=== PATIENT | female | born 1945 | race Caucasian/White ===

== ENCOUNTER 2019-09-02 10:23 | Outpatient (CLI) | payer MEDICARE, SELFPAY ==
[2019-09-02 13:10] LABS: Hemoglobin A1C 7.2 % (<5.7)
== END 2019-09-02 10:24 | disposition home or self-care (01) ==
PROVIDERS: PCP Nurse Practitioner Family; Visit Provider Nurse Practitioner Family
DX: E11.9 Type 2 diabetes mellitus without complications (principal)
CPT/HCPCS: 36415; 83036

== ENCOUNTER 2019-11-18 14:33 | Outpatient (CLI) | payer MEDICARE, OTHER, SELFPAY ==
--- NOTE | 2019-11-18 14:40 | ECG_ITS ---
Measurements Intervals [place] Rate: 76 P: 53 OR: 165 QRS: 31 QRSD: 84 T: 14 QT: 385 QTc: 433 Interpretive Statements SINUS RHYTHM NORMAL ECG Electronically Signed On 11-18-2019 15:41:39 CDT by John Gunn D.O.
[2019-11-18 14:56] LABS: Basophils Absolute Auto 0.05 K/mm3 (0.00-0.10); Basophils Percent Auto 0.6 % (0.0-1.0); Eosinophils Absolute Auto 0.07 K/mm3 (0.02-0.50); Eosinophils Percent Auto 0.8 % (1.0-6.0); Hematocrit 37.4 % (35.0-42.0); Hemoglobin 12.4 g/dL (11.7-13.8); Immature Granulocyte Absolute 0.04 K/mm3 (0.00-0.00); Immature Granulocyte Percent A 0.5 % (0.0-0.0); Lymphocytes Absolute Auto 1.49 K/mm3 (1.10-4.50); Lymphocytes Percent Auto 17.7 % (18.0-42.0); Mean Corpuscular HGB Conc 33.2 g/dL (32.0-36.0); Mean Corpuscular Hemoglobin 32.7 pg (27.0-31.0); Mean Corpuscular Volume 98.7 fL (78.0-102.0); Mean Platelet Volume 9.8 fl (9.2-11.8); Monocytes Absolute Auto 0.71 K/mm3 (0.10-0.90); Monocytes Percent Auto 8.4 % (2.0-11.0); Neutrophils Absolute Auto 6.1 K/mm3 (1.7-7.2); Platelet Count Result 224 K/mm3 (150-420); Red Blood Count 3.79 M/mm3 (4.20-5.40); Red Cell Distribution Width 12.9 % (11.6-14.4); White Blood Count 8.4 K/mm3 (4.8-10.8)
[2019-11-18 15:18] LABS: Creatinine Urine 19.87 mg/dL (40-278)
[2019-11-18 15:20] LABS: Hemoglobin A1C 7.2 % (<5.7)
[2019-11-18 15:43] LABS: Alanine Aminotransferase 59 U/L (14-59); Albumin Level 3.6 g/dL (3.4-5.0); Alkaline Phosphatase 156 U/L (46-116); Anion Gap 7 mmol/L (8-16); Aspartate Amino Transferase 23 U/L (15-37); Bilirubin,Total 0.3 mg/dL (0.00-1.00); Blood Urea Nitrogen 41 mg/dL (7-18); Carbon Dioxide 31 mmol/L (21-32); Chloride 105 mmol/L (98-108); Cholesterol 155 mg/dL (0-200); Estimated Glomerular Filt Rate 29; Free T4 Free Thyroxine 1.07 ng/dL (0.76-1.46); Glucose 115 mg/dL (70-99); HDL Direct 35 mg/dL (40-60); LDL Cholesterol Calculated 88 mg/dL (<130); Magnesium 1.9 mg/dL (1.8-2.4); Osmolality Calculated 307 mOsm/kg (285-295); Potassium 3.9 mmol/L (3.5-5.1); Sodium 143 mmol/L (136-145); Thyroid Stimulating Hormone 0.64 uIU/mL (0.36-3.74); Total Protein 6.9 g/dL (6.4-8.2); Triglycerides 162 mg/dL (0-150); Vitamin B12 1759 pg/mL (193-986)
[2019-11-18 15:46] LABS: MALB Creatinine Ratio 6.5 mg/g (0-30); Microalbumin Urine Random < 1.3 mg/L
[2019-11-18 15:47] LABS: Troponin I < 0.02 ng/mL (0.00-0.056)
[2019-11-23 19:25] LABS: Vitamin D 25 Hydroxy 53 ng/mL (30-100)
== END 2019-11-18 14:34 | disposition home or self-care (01) ==
LOC: CHSLAB 14:40
PROVIDERS: PCP Nurse Practitioner Family; Visit Provider Nurse Practitioner Family
DX: E78.00 Pure hypercholesterolemia, unspecified (principal); I10 Essential (primary) hypertension; E03.9 Hypothyroidism, unspecified; R53.83 Other fatigue; R53.1 Weakness; Z00.00 Encounter for general adult medical examination without abnormal findings; Z79.899 Other long term (current) drug therapy; E11.9 Type 2 diabetes mellitus without complications
CPT/HCPCS: 36415; 80053; 80061; 82043; 82306; 82553; 82607; 83036; 83735; 84439; 84443; 84484; 85025; 93005

== ENCOUNTER 2019-12-03 09:31 | Outpatient (CLI) | payer MEDICARE, SELFPAY ==
[2019-12-03 11:27] LABS: Alanine Aminotransferase 54 U/L (14-59); Albumin Level 3.8 g/dL (3.4-5.0); Alkaline Phosphatase 220 U/L (46-116); Anion Gap 6 mmol/L (8-16); Aspartate Amino Transferase 20 U/L (15-37); Bilirubin,Total 0.4 mg/dL (0.00-1.00); Blood Urea Nitrogen 31 mg/dL (7-18); Calcium 9.5 mg/dL (8.5-10.1); Carbon Dioxide 30 mmol/L (21-32); Chloride 105 mmol/L (98-108); Estimated Glomerular Filt Rate 29; Glucose 131 mg/dL (70-99); Osmolality Calculated 300 mOsm/kg (285-295); Potassium 4.3 mmol/L (3.5-5.1); Sodium 141 mmol/L (136-145); Total Protein 6.7 g/dL (6.4-8.2)
== END 2019-12-03 09:32 | disposition home or self-care (01) ==
LOC: CHSLAB 09:33
PROVIDERS: PCP Nurse Practitioner Family; Visit Provider Nurse Practitioner Family
DX: N28.9 Disorder of kidney and ureter, unspecified (principal)
CPT/HCPCS: 36415; 80053

== ENCOUNTER 2019-12-21 12:19 | Outpatient (CLI) | payer MEDICARE, OTHER, SELFPAY ==
--- NOTE | ~2019-12-21 | MM_ITS ---
EXAMINATION: MM screening roque BI w kelsea HISTORY: Screening mammogram TECHNIQUE: Craniocaudal and mediolateral oblique 3-D tomosynthesis images were obtained and synthetic 2-D images were generated. CAD analysis was submitted and interpreted. COMPARISON: 12/16/2018, 12/12/2017, 11/28/2016 bilateral digital screening mammogram examinations BREAST PARENCHYMAL COMPOSITION: The breasts are heterogeneously dense, which may obscure small masses . FINDINGS: There is a new asymmetric approximately 10 mm opacity in the posterior lateral aspect of th e mid upper left breast on MLO view. An approximately 13 mm opacity is noted overlying the subareolar area on MLO view. Bilateral diagnostic mammography and ultrasound examination are recommended. IMPRESSION: 1. Bilateral masses are suggested 2. Bilateral diagnostic mammography and ultrasound are recommended. BI-RADS Category 0: Incomplete: Needs additional imaging evaluation. Reviewed, dictated and finalized at location A.
== END 2019-12-21 12:20 | disposition home or self-care (01) ==
PROVIDERS: PCP Nurse Practitioner Family; Visit Provider Nurse Practitioner Family
DX: Z12.31 Encounter for screening mammogram for malignant neoplasm of breast (principal)
CPT/HCPCS: 77063; 77067

== ENCOUNTER 2019-12-23 08:59 | Outpatient (CLI) | payer MEDICARE, OTHER, SELFPAY ==
--- NOTE | ~2019-12-23 | MMUS_ITS ---
EXAMINATION: MM diagnostic roque BI w kelsea, US breast BI complete HISTORY: Bilateral breast masses suggested on screening mammogram of 12/21/2019 TECHNIQUE: Additional 3-D tomosynthesis images of both breasts were performed and synthetic 2-D image s were generated. CAD analysis was submitted and interpreted. High resolution bilateral complete rob st ultrasound was performed. COMPARISON: 12/21/2019 bilateral digital screening mammogram FINDINGS: MAMMOGRAPHIC FINDINGS: No reproducible mass or architectural distortion is evident on these supplemental views. ULTRASOUND: No suspicious mass or shadowing is detected. No cyst is identified. IMPRESSION: 1. No mammographic evidence of malignancy 2. Routine mammographic screening is recommended. BI-RADS Category 1: Negative Reviewed, dictated and finalized at location A. IMPRESSION: 1. No mammographic evidence of malignancy 2. Routine mammographic screening is recommended. BI-RADS Category 1: Negative
== END 2019-12-23 09:00 | disposition home or self-care (01) ==
LOC: CHSIMG 09:02
PROVIDERS: PCP Nurse Practitioner Family; Visit Provider Nurse Practitioner Family
DX: R92.8 Other abnormal and inconclusive findings on diagnostic imaging of breast (principal)
CPT/HCPCS: 76641; 77062; 77066; G0279

== ENCOUNTER 2020-02-18 09:11 | Outpatient (CLI) | payer MEDICARE, SELFPAY ==
[2020-02-18 09:33] LABS: Add Urine Microscopic? NO; Appearance Urine Clear (Clear); Basophils Absolute Auto 0.06 K/mm3 (0.00-0.10); Basophils Percent Auto 0.9 % (0.0-1.0); Bilirubin Urine Negative (Negative); Blood Urine Negative (Negative); Color Urine Yellow (Yellow); Eosinophils Absolute Auto 0.08 K/mm3 (0.02-0.50); Eosinophils Percent Auto 1.3 % (1.0-6.0); Glucose Urine UA Negative (Negative); Hemoglobin 12.3 g/dL (11.7-13.8); Immature Granulocyte Absolute 0.05 K/mm3 (0.00-0.00); Immature Granulocyte Percent A 0.8 % (0.0-0.0); Ketones Urine Negative (Negative); Leukocyte Esterase Ur Negative (Negative); Lymphocytes Absolute Auto 1.92 K/mm3 (1.10-4.50); Mean Corpuscular HGB Conc 32.4 g/dL (32.0-36.0); Mean Corpuscular Hemoglobin 32.9 pg (27.0-31.0); Mean Corpuscular Volume 101.6 fL (78.0-102.0); Mean Platelet Volume 9.7 fl (9.2-11.8); Monocytes Absolute Auto 0.66 K/mm3 (0.10-0.90); Monocytes Percent Auto 10.3 % (2.0-11.0); Neutrophils Absolute Auto 3.6 K/mm3 (1.7-7.2); Neutrophils Percent Auto 56.7 % (50.0-70.0); Nitrate Urine Negative (Negative); Platelet Count Result 257 K/mm3 (150-420); Protein Urine Negative (Negative); Red Blood Count 3.74 M/mm3 (4.20-5.40); Red Cell Distribution Width 12.8 % (11.6-14.4); Urobilinogen Urine 0.2 mg/dL (0.2-1.0); White Blood Count 6.4 K/mm3 (4.8-10.8)
[2020-02-18 09:49] LABS: Creatinine Urine 139.64 mg/dL (40-278); Total Protein Urine Random 7.3 mg/dL (0.0-11.9)
[2020-02-18 10:02] LABS: Hemoglobin A1C 6.3 % (<5.7)
[2020-02-18 10:40] LABS: Alanine Aminotransferase 46 U/L (14-59); Albumin Level 3.9 g/dL (3.4-5.0); Alkaline Phosphatase 146 U/L (46-116); Anion Gap 7 mmol/L (8-16); Aspartate Amino Transferase 20 U/L (15-37); Bilirubin,Total 0.4 mg/dL (0.00-1.00); Blood Urea Nitrogen 39 mg/dL (7-18); Calcium 9.3 mg/dL (8.5-10.1); Carbon Dioxide 30 mmol/L (21-32); Chloride 105 mmol/L (98-108); Estimated Glomerular Filt Rate 28; Glucose 106 mg/dL (70-99); Osmolality Calculated 303 mOsm/kg (285-295); Phosphorus 4.3 mg/dL (2.6-4.7); Potassium 5.3 mmol/L (3.5-5.1); Sodium 142 mmol/L (136-145); Total Protein 6.5 g/dL (6.4-8.2)
[2020-02-22 19:17] LABS: Hepatitis A Antibody IgM Nonreactive; Hepatitis B Core Antibody Nonreactive (Nonreactive); Hepatitis B Surface Antigen Nonreactive (Nonreactive); Hepatitis C Signal to Cutoff 0.01 ratio (<1.00); Hepatitis C Virus Antibody Nonreactive (Nonreactive)
[2020-02-25 14:33] LABS: Parathyroid Intact 95 pg/mL (14-64)
== END 2020-02-18 09:12 | disposition home or self-care (01) ==
LOC: CHSLAB 09:17
PROVIDERS: PCP Nurse Practitioner Family; Visit Provider Internal Medicine Nephrology
DX: N18.30 Chronic kidney disease, stage 3 unspecified (principal); R53.83 Other fatigue; E11.9 Type 2 diabetes mellitus without complications
CPT/HCPCS: 36415; 80053; 80074; 81003; 82570; 83036; 83970; 84100; 84156; 85025

== ENCOUNTER 2020-03-03 08:34 | Outpatient (CLI) | payer MEDICARE, SELFPAY ==
[2020-03-03 09:29] LABS: Free T4 Free Thyroxine 0.83 ng/dL (0.76-1.46); Thyroid Stimulating Hormone 10.68 uIU/mL (0.36-3.74)
== END 2020-03-03 08:35 | disposition home or self-care (01) ==
LOC: CHSLAB 08:36
PROVIDERS: PCP Nurse Practitioner Family; Visit Provider Nurse Practitioner Family
DX: E03.9 Hypothyroidism, unspecified (principal)
CPT/HCPCS: 36415; 84439; 84443

== ENCOUNTER 2020-03-27 09:14 | Outpatient (CLI) | payer MEDICARE, SELFPAY ==
[2020-03-27 10:29] LABS: Albumin Level 3.6 g/dL (3.4-5.0); Anion Gap 7 mmol/L (8-16); Blood Urea Nitrogen 32 mg/dL (7-18); Calcium 8.9 mg/dL (8.5-10.1); Carbon Dioxide 28 mmol/L (21-32); Chloride 105 mmol/L (98-108); Estimated Glomerular Filt Rate 27; Glucose 96 mg/dL (70-99); Osmolality Calculated 296 mOsm/kg (285-295); Phosphorus 5.1 mg/dL (2.6-4.7); Potassium 4.1 mmol/L (3.5-5.1); Sodium 140 mmol/L (136-145)
== END 2020-03-27 09:15 | disposition home or self-care (01) ==
LOC: CHSLAB 09:18
PROVIDERS: PCP Nurse Practitioner Family; Visit Provider Internal Medicine Nephrology
DX: N18.30 Chronic kidney disease, stage 3 unspecified (principal)
CPT/HCPCS: 36415; 80069

== ENCOUNTER 2020-04-20 08:45 | Outpatient (CLI) | payer MEDICARE, SELFPAY ==
[2020-04-20 09:14] LABS: Hemoglobin A1C 5.4 % (<5.7)
[2020-04-20 09:35] LABS: Alanine Aminotransferase 52 U/L (14-59); Albumin Level 3.3 g/dL (3.4-5.0); Alkaline Phosphatase 211 U/L (46-116); Anion Gap 8 mmol/L (8-16); Aspartate Amino Transferase 31 U/L (15-37); Bilirubin,Total 0.4 mg/dL (0.00-1.00); Blood Urea Nitrogen 21 mg/dL (7-18); Calcium 9.2 mg/dL (8.5-10.1); Carbon Dioxide 28 mmol/L (21-32); Chloride 107 mmol/L (98-108); Estimated Glomerular Filt Rate 30; Free T4 Free Thyroxine 0.55 ng/dL (0.76-1.46); Glucose 98 mg/dL (70-99); Osmolality Calculated 299 mOsm/kg (285-295); Potassium 3.8 mmol/L (3.5-5.1); Sodium 143 mmol/L (136-145); Thyroid Stimulating Hormone 80.73 uIU/mL (0.36-3.74); Total Protein 5.9 g/dL (6.4-8.2)
== END 2020-04-20 08:46 | disposition home or self-care (01) ==
LOC: CHSLAB 08:48
PROVIDERS: PCP Nurse Practitioner Family; Visit Provider Nurse Practitioner Family
DX: E11.9 Type 2 diabetes mellitus without complications (principal); E03.9 Hypothyroidism, unspecified
CPT/HCPCS: 36415; 80053; 83036; 84439; 84443

== ENCOUNTER 2020-05-16 13:53 | Outpatient (CLI) | payer MEDICARE, SELFPAY ==
[2020-05-16 14:59] LABS: CRP 0.8 mg/dL (0.0-0.9)
[2020-05-16 15:18] LABS: Erythrocyte Sedimentation Rate 20 mm/hr (0-20)
[2020-05-19 14:58] LABS: Tissue Transglutaminase IgG Ab 30 U/mL (<6)
[2020-05-21 08:29] LABS: Tissue Transglutaminase IgA Ab >100 U/mL (<4)
== END 2020-05-16 13:54 | disposition home or self-care (01) ==
LOC: CHSLAB 13:57
PROVIDERS: PCP Nurse Practitioner Family; Visit Provider Internal Medicine Gastroenterology
DX: K52.9 Noninfective gastroenteritis and colitis, unspecified (principal)
CPT/HCPCS: 36415; 83516; 85652; 86140

== ENCOUNTER → 2020-06-24 01:32 | Outpatient (CLI) | payer MEDICARE, OTHER, SELFPAY ==
[2020-06-24 20:23] LABS: SARS-CoV-2 RNA PCR Negative
== END ==
PROVIDERS: PCP Nurse Practitioner Family; Visit Provider Internal Medicine Gastroenterology
DX: Z01.812 Encounter for preprocedural laboratory examination (principal); Z20.822 Contact with and (suspected) exposure to COVID-19
CPT/HCPCS: C9803; U0003; U0005

== ENCOUNTER 2020-06-28 00:32 | Day surgery (SDC) | payer MEDICARE, OTHER, SELFPAY ==
[2020-06-15 09:21] VITALS: BMI 20.2
[2020-06-28 06:52] VITALS: BP 123/55; PULSE 80; RESP 18; TEMP 36.4; O2SAT 98
[2020-06-28] MEDS: LACTATED RINGERS 1,000 ML 150 ML IV CONT (07:32)
--- NOTE | 2020-06-28 07:36 | WPDANESEPPF ---
Anes - Initial Pre Proc Eval Procedure: Operation Date: 06/28/20 08:00 Proposed Procedures p Esophagogastroduodenoscopy & Colonoscopy - Pancho Howard MD Date/Time: 06/28/20 07:36 Surgeon: Pancho Howard MD Pre Op Diagnosis: diarrhea, GERD Patient Data Age: 75 Gender: F Height: 5 ft Weight: 44.9 kg Last Vital Signs Temp 97.6 F 06/28/20 06:52 Pulse 80 06/28/20 06:52 Resp 18 06/28/20 06:52 BP 123/55 L 06/28/20 06:52 Pulse Ox 98 06/28/20 06:52 Allergies Allergy/AdvReac Type Severity Reaction Status Date / Time gluten Allergy Verified 06/15/20 09:16 Home Medications Medication Instructions Recorded Confirmed Type aspirin 81 mg tablet,delayed 81 mg PO DAILY 10/19/19 06/15/20 History release calcium carbonate 600 mg calcium 600 mg PO DAILY 10/19/19 06/15/20 History (1,500 mg) tablet cholecalciferol (vitamin D3) 25 25 mcg PO DAILY 10/19/19 06/15/20 History mcg (1,000 unit) capsule atorvastatin 20 mg tablet 20 mg PO DAILY #90 tablet 01/13/20 06/15/20 Rx sodium,potassium,mag sulfates 17.5 See Rx Instructions PO .COMPLEX 05/19/20 06/15/20 Rx gram-3.13 gram-1.6 gram oral soln #354 ml levothyroxine 75 mcg capsule 75 mcg PO DAILY #30 cap 05/26/20 06/15/20 Rx lisinopril 20 See Rx Instructions .ROUTE 05/29/20 06/15/20 Rx mg-hydrochlorothiazide 25 mg tablet .COMPLEX #90 tablet psyllium husk (aspartame) 2.67287 g PO DAILY PRN 06/15/20 06/15/20 History [Metamucil Sugar-Free (aspart)] furosemide 20 mg tablet 20 mg PO QAM #14 tablet 06/22/20 Rx Patient hx anesthesia problems: none Family hx anesthesia problems: none PMFSH Past Medical History Medical History (System 05/26/20 @ 10:47 by Shayy Garcia) HTN (hypertension) Hypercholesteremia Hypothyroidism Osteoporosis Type 2 diabetes mellitus Weight loss Family History Family History (System 05/26/20 @ 10:47 by Shayy Garcia) Mother Type 2 diabetes mellitus Social History Social History (System 05/26/20 @ 10:47 by Shayy Garcia) Smoking status: Never smoker Tobacco type: cigarettes Alcohol intake: never Substance use: never Substance use type: does not use Living arrangements: with friend(s) Gender identity (if verbalized by the patient): Female Spiritual care concerns: No Anes - Eval Final PreProcedure Day of Procedure 06/28/20 07:36 Patient weight: normal Heart: regular rate and rhythm Lungs: clear to auscultation Airway: Mallampati scale class II Neurological: alert and oriented Last oral intake: >/= 8 hours ASA classification: III Emergent: no Anesthetic plan: proceed Anesthesia type and monitoring: general GIVS and standard monitoring Informed Consent: The patient's anesthetic plan and its attendant risks and benefits were discussed with the patient/family/POA. Questions were solicited and answers provided to the satisfaction of the patient/family/POA.
--- NOTE | 2020-06-28 07:58 | PM.HPGS ---
History of Present Illness History of Present Illness Consent: Risks, benefits, and alternatives have been discussed and questions answered. Patient agrees to proceed with procedure. Chief complaint: diarrhea, GERD Narrative: Brenda Molina is a 75 year old female with chronic diarrhea, recent blood work + for celiac disease, never had colonoscopy Review of Systems Constitutional: Constitutional: Denies headache(s) and Denies weakness Eyes: Eyes: Denies blurry vision ENT: Reports Normal hearing present, Denies headache(s) and Denies neck pain Cardiovascular: Cardiovascular: Denies chest pain and Denies dyspnea Respiratory: Respiratory: Denies dyspnea Gastrointestinal: Gastrointestinal: Reports no additional gastrointestinal complaints Genitourinary: Genitourinary: Denies dysuria Musculoskeletal: Musculoskeletal: Denies neck pain Integumentary/Breasts: Skin/Breast: Denies dry skin Neurologic: Reports Normal hearing present, Denies headache(s) and Denies weakness Psychiatric: Psychiatric: Denies anxiety Endocrine: Endocrine: Denies change in body appearance Hematologic/Lymphatic: Hematologic/Lymphatic: Denies easy bleeding Allergic/Immunologic: Allergic/Immunologic: Denies urticaria PMFSH Past Medical History Medical History (Updated 06/28/20 @ 07:59 by Pancho Howard MD) Celiac disease HTN (hypertension) Hypercholesteremia Hypothyroidism Osteoporosis Type 2 diabetes mellitus Weight loss Family History Family History (System 05/26/20 @ 10:47 by Shayy Garcia) Mother Type 2 diabetes mellitus Social History Social History (System 05/26/20 @ 10:47 by Shayy Garcia) Smoking status: Never smoker Tobacco type: cigarettes Alcohol intake: never Substance use: never Substance use type: does not use Living arrangements: with friend(s) Gender identity (if verbalized by the patient): Female Spiritual care concerns: No Meds Home Medications and Allergies Home Medications Medication Instructions Recorded Confirmed Type aspirin 81 mg tablet,delayed 81 mg PO DAILY 10/19/19 06/15/20 History release calcium carbonate 600 mg calcium 600 mg PO DAILY 10/19/19 06/15/20 History (1,500 mg) tablet cholecalciferol (vitamin D3) 25 25 mcg PO DAILY 10/19/19 06/15/20 History mcg (1,000 unit) capsule atorvastatin 20 mg tablet 20 mg PO DAILY #90 tablet 01/13/20 06/15/20 Rx sodium,potassium,mag sulfates 17.5 See Rx Instructions PO .COMPLEX 05/19/20 06/15/20 Rx gram-3.13 gram-1.6 gram oral soln #354 ml levothyroxine 75 mcg capsule 75 mcg PO DAILY #30 cap 05/26/20 06/15/20 Rx lisinopril 20 See Rx Instructions .ROUTE 05/29/20 06/15/20 Rx mg-hydrochlorothiazide 25 mg tablet .COMPLEX #90 tablet psyllium husk (aspartame) 2.32742 g PO DAILY PRN 06/15/20 06/15/20 History [Metamucil Sugar-Free (aspart)] furosemide 20 mg tablet 20 mg PO QAM #14 tablet 06/22/20 Rx Allergies Allergy/AdvReac Type Severity Reaction Status Date / Time gluten Allergy Verified 06/15/20 09:16 Vital Signs Vital Signs - 24 hr 06/28/20 06:52 Temperature 97.6 F Pulse Rate 80 Respiratory Rate 18 Blood Pressure 123/55 L Pulse Oximetry 98 Exam Const: General: comfortable and no acute distress HENMT: General nose exam: Normal nares present Eyes: General: appearance normal, both eyes and all related structures Neck: Neck: no JVD Resp: Auscultation: clear to auscultation bilaterally Cardio: Rate: regular rate Rhythm: regular rhythm GI: Inspection: non-distended GI Palp: Yes Soft to palpation Skin: General skin exam: normal color Neuro: General: gait normal Speech: normal speech Extrem: General: normal to inspection Psych: Mental Status: mental status grossly normal Assessment and Plan Assessment and plan (1) Chronic diarrhea: Code(s): K52.9 - Noninfective gastroenteritis and colitis, unspecified Status: Acute Asses
[2020-06-28] MEDS: BENZOCAINE (*SP) 60 ML SPRAY CAN (HURRICAINE) 1 SPRAY MUCOUS MEM (08:03)
[2020-06-28 08:35] VITALS: BP 104/61; PULSE 64; RESP 14; O2SAT 100
[2020-06-28 08:45] VITALS: BP 112/58; PULSE 68; RESP 20; O2SAT 100
[2020-06-28 08:55] VITALS: BP 95/43; PULSE 62; RESP 16; O2SAT 99
== END 2020-06-28 09:11 | disposition home or self-care (01) ==
PROVIDERS: PCP Nurse Practitioner Family; Visit Provider Internal Medicine Gastroenterology
PROC: 0DJ08ZZ Inspection of Upper Intestinal Tract, Via Natural or Artificial Opening Endoscopic (ICD-10-PCS; CPT 43235; principal; 2020-06-28 08:00)
DX: K52.9 Noninfective gastroenteritis and colitis, unspecified (principal); D12.0 Benign neoplasm of cecum; D12.3 Benign neoplasm of transverse colon; R63.4 Abnormal weight loss; K64.8 Other hemorrhoids; K29.50 Unspecified chronic gastritis without bleeding; K31.89 Other diseases of stomach and duodenum; K63.9 Disease of intestine, unspecified; I10 Essential (primary) hypertension; E78.00 Pure hypercholesterolemia, unspecified; E03.9 Hypothyroidism, unspecified; M81.0 Age-related osteoporosis without current pathological fracture; E11.9 Type 2 diabetes mellitus without complications; Z79.82 Long term (current) use of aspirin
CPT/HCPCS: 45385; 45380; 43239; 88305; 88342; J2001; J2704; J7120

== ENCOUNTER 2020-07-10 14:30 | Outpatient (CLI) | payer MEDICARE, OTHER, SELFPAY ==
--- NOTE | ~2020-07-10 | XR_ITS ---
XR foot LT 2V DATE: 07/10/2020 14:57 INDICATION: Distal first metatarsal pain for one week TECHNIQUE: AP and lateral views COMPARISON: None FINDINGS: There is soft tissue swelling, particularly of the dorsum of the forefoot. Mild hallux valgus and bunion deformity. No fracture or dislocation, periosteal reaction or bone destruction. IMPRESSION: Soft tissue swelling Mild hallux valgus and bunion deformity Reviewed, dictated and finalized at location A.
[2020-07-10 15:39] LABS: CRP 7.4 mg/dL (0.0-0.9); Uric Acid 11.6 mg/dL (2.6-6.0)
== END 2020-07-10 14:31 | disposition home or self-care (01) ==
LOC: CHSLAB 14:33
PROVIDERS: PCP Nurse Practitioner Family; Visit Provider Nurse Practitioner Family
DX: M79.672 Pain in left foot (principal)
CPT/HCPCS: 36415; 73620; 84550; 86140

== ENCOUNTER 2020-07-28 14:00 | Outpatient (CLI) | payer MEDICARE, SELFPAY ==
[2020-07-28 15:29] LABS: Thyroid Stimulating Hormone 6.44 uIU/mL (0.36-3.74)
[2020-07-31 16:46] LABS: Free T4 Free Thyroxine 0.96 ng/dL (0.76-1.46)
== END 2020-07-28 14:01 | disposition home or self-care (01) ==
LOC: CHSLAB 14:02
PROVIDERS: PCP Nurse Practitioner Family; Visit Provider Nurse Practitioner Family
DX: E03.9 Hypothyroidism, unspecified (principal)
CPT/HCPCS: 36415; 84439; 84443

== ENCOUNTER 2020-08-14 14:35 | Outpatient (CLI) | payer MEDICARE, OTHER, SELFPAY ==
[2020-08-14 15:31] LABS: SARS-CoV-2 RNA PCR Negative (Negative)
== END 2020-08-14 14:36 | disposition home or self-care (01) ==
LOC: CHSLAB 14:40
PROVIDERS: PCP Nurse Practitioner Family; Visit Provider Nurse Practitioner Family
DX: Z20.822 Contact with and (suspected) exposure to COVID-19 (principal)
CPT/HCPCS: C9803; U0003; U0005

== ENCOUNTER 2020-09-11 08:39 | Outpatient (CLI) | payer MEDICARE, SELFPAY ==
[2020-09-11 08:54] LABS: Basophils Absolute Auto 0.04 K/mm3 (0.00-0.10); Basophils Percent Auto 0.7 % (0.0-1.0); Eosinophils Absolute Auto 0.13 K/mm3 (0.02-0.50); Eosinophils Percent Auto 2.2 % (1.0-6.0); Hematocrit 34.1 % (35.0-42.0); Immature Granulocyte Absolute 0.04 K/mm3 (0.00-0.00); Immature Granulocyte Percent A 0.7 % (0.0-0.0); Lymphocytes Percent Auto 28.5 % (18.0-42.0); Mean Corpuscular HGB Conc 32.3 g/dL (32.0-36.0); Mean Corpuscular Hemoglobin 32.8 pg (27.0-31.0); Mean Corpuscular Volume 101.8 fL (78.0-102.0); Mean Platelet Volume 9.4 fl (9.2-11.8); Monocytes Percent Auto 10.1 % (2.0-11.0); Neutrophils Absolute Auto 3.5 K/mm3 (1.7-7.2); Neutrophils Percent Auto 57.8 % (50.0-70.0); Platelet Count Result 229 K/mm3 (150-420); Red Blood Count 3.35 M/mm3 (4.20-5.40); Red Cell Distribution Width 12.8 % (11.6-14.4)
[2020-09-11 09:58] LABS: Albumin Level 3.3 g/dL (3.4-5.0); Anion Gap 8 mmol/L (8-16); Blood Urea Nitrogen 63 mg/dL (7-18); Calcium 8.8 mg/dL (8.5-10.1); Carbon Dioxide 30 mmol/L (21-32); Chloride 102 mmol/L (98-108); Estimated Glomerular Filt Rate 23; Free T4 Free Thyroxine 0.76 ng/dL (0.76-1.46); Glucose 101 mg/dL (70-99); Osmolality Calculated 308 mOsm/kg (285-295); Phosphorus 5.3 mg/dL (2.6-4.7); Potassium 4.1 mmol/L (3.5-5.1); Sodium 140 mmol/L (136-145); Thyroid Stimulating Hormone 14.71 uIU/mL (0.36-3.74)
[2020-09-13 20:50] LABS: Albumin 3.5 g/dL (3.8-4.8); Alpha 1 Globulin 0.3 g/dL (0.2-0.3); Alpha 2 Globulin 0.8 g/dL (0.5-0.9); Beta 1 Globulin 0.4 g/dL (0.4-0.6); Gamma Globulin 0.7 g/dL (0.8-1.7); Interpretation Consistent with; Protein, Total 5.8 g/dL (6.1-8.1)
[2020-09-16 05:45] LABS: Creatinine, Random Urine 73 mg/dL (20-275); Total Protein/Creatinine Ratio 82 mg/g creat (21-161)
== END 2020-09-11 08:40 | disposition home or self-care (01) ==
LOC: CHSLAB 08:42
PROVIDERS: PCP Nurse Practitioner Family; Visit Provider Internal Medicine Nephrology
DX: N18.30 Chronic kidney disease, stage 3 unspecified (principal); E03.9 Hypothyroidism, unspecified
CPT/HCPCS: 36415; 80069; 82570; 84155; 84156; 84165; 84166; 84439; 84443; 85025

== ENCOUNTER 2020-12-18 08:47 | Outpatient (CLI) | payer MEDICARE, OTHER, SELFPAY ==
[2020-12-18 09:23] LABS: Basophils Absolute Auto 0.06 K/mm3 (0.00-0.10); Basophils Percent Auto 0.7 % (0.0-1.0); Eosinophils Absolute Auto 0.13 K/mm3 (0.02-0.50); Eosinophils Percent Auto 1.5 % (1.0-6.0); Hematocrit 37.4 % (35.0-42.0); Immature Granulocyte Absolute 0.12 K/mm3 (0.00-0.00); Immature Granulocyte Percent A 1.4 % (0.0-0.0); Lymphocytes Absolute Auto 2.52 K/mm3 (1.10-4.50); Lymphocytes Percent Auto 28.6 % (18.0-42.0); Mean Corpuscular HGB Conc 32.1 g/dL (32.0-36.0); Mean Corpuscular Hemoglobin 32.6 pg (27.0-31.0); Mean Corpuscular Volume 101.6 fL (78.0-102.0); Mean Platelet Volume 9.8 fl (9.2-11.8); Monocytes Absolute Auto 0.78 K/mm3 (0.10-0.90); Monocytes Percent Auto 8.9 % (2.0-11.0); Neutrophils Absolute Auto 5.2 K/mm3 (1.7-7.2); Neutrophils Percent Auto 58.9 % (50.0-70.0); Platelet Count Result 241 K/mm3 (150-420); Red Blood Count 3.68 M/mm3 (4.20-5.40); Red Cell Distribution Width 13.6 % (11.6-14.4); White Blood Count 8.8 K/mm3 (4.8-10.8)
[2020-12-18 09:50] LABS: Creatinine Urine 106.38 mg/dL (40-278); MALB Creatinine Ratio 65.8 mg/g (0-30); Microalbumin Urine Random 70.1 mg/L
[2020-12-18 10:09] LABS: Alanine Aminotransferase 48 U/L (14-59); Albumin Level 3.6 g/dL (3.4-5.0); Alkaline Phosphatase 145 U/L (46-116); Aspartate Amino Transferase 20 U/L (15-37); Bilirubin,Total 0.4 mg/dL (0.00-1.00); Blood Urea Nitrogen 38 mg/dL (7-18); Calcium 9.3 mg/dL (8.5-10.1); Carbon Dioxide 31 mmol/L (21-32); Cholesterol 158 mg/dL (0-200); Estimated Glomerular Filt Rate 31; Free T4 Free Thyroxine 0.94 ng/dL (0.76-1.46); Glucose 87 mg/dL (70-99); HDL Direct 72 mg/dL (40-60); LDL Cholesterol Calculated 78 mg/dL (<130); Phosphorus 5.6 mg/dL (2.6-4.7); Thyroid Stimulating Hormone 1.53 uIU/mL (0.36-3.74); Triglycerides 39 mg/dL (0-150)
[2020-12-18 13:29] LABS: Anion Gap 6 mmol/L (8-16); Chloride 102 mmol/L (98-107); Osmolality Calculated 296 mOsm/kg (285-295); Potassium 4.5 mmol/L (3.4-5.0); Sodium 139 mmol/L (137-145)
[2020-12-21 10:30] LABS: Parathyroid Intact 131 pg/mL (14-64)
[2020-12-26 13:11] LABS: Vitamin D 25 Hydroxy 33 ng/mL (30-100)
== END 2020-12-18 08:48 | disposition home or self-care (01) ==
PROVIDERS: PCP Nurse Practitioner Family; Visit Provider Internal Medicine Nephrology
DX: N18.30 Chronic kidney disease, stage 3 unspecified (principal); E11.9 Type 2 diabetes mellitus without complications; E03.9 Hypothyroidism, unspecified; E78.00 Pure hypercholesterolemia, unspecified
CPT/HCPCS: 36415; 80053; 80061; 82043; 82306; 83036; 83970; 84100; 84439; 84443; 85025

== ENCOUNTER 2020-12-26 12:35 | Outpatient (CLI) | payer MEDICARE, OTHER, SELFPAY ==
--- NOTE | ~2020-12-26 | MM_ITS ---
EXAMINATION: MM screening roque BI w kelsea HISTORY: Screening TECHNIQUE: Craniocaudal and mediolateral oblique 3-D tomosynthesis images were obtained and synthetic 2-D images were generated. CAD analysis was submitted and interpreted. COMPARISON: No prior mammogram is available for comparison at this institution. BREAST PARENCHYMAL COMPOSITION: The breasts are heterogeneously dense, which may obscure small masses . FINDINGS: There is no evidence of suspicious mass, calcification, or architectural distortion to sugg est malignancy in either breast. There has been no suspicious interval change. IMPRESSION: 1. No mammographic evidence of malignancy. 2. Recommend routine screening mammography in one year. BI-RADS Category 1: Negative Reviewed, dictated and finalized at location A.
== END 2020-12-26 12:36 | disposition home or self-care (01) ==
PROVIDERS: PCP Nurse Practitioner Family; Visit Provider Nurse Practitioner Family
DX: Z12.31 Encounter for screening mammogram for malignant neoplasm of breast (principal)
CPT/HCPCS: 77063; 77067

== ENCOUNTER 2021-06-07 08:26 | Outpatient (CLI) | payer MEDICARE, SELFPAY ==
[2021-06-07 08:44] LABS: Basophils Absolute Auto 0.04 K/mm3 (0.00-0.10); Basophils Percent Auto 0.6 % (0.0-1.0); Eosinophils Absolute Auto 0.05 K/mm3 (0.02-0.50); Eosinophils Percent Auto 0.7 % (1.0-6.0); Hemoglobin 12.8 g/dL (11.7-13.8); Immature Granulocyte Percent A 1.4 % (0.0-0.0); Lymphocytes Absolute Auto 1.66 K/mm3 (1.10-4.50); Lymphocytes Percent Auto 23.9 % (18.0-42.0); Mean Corpuscular HGB Conc 32.8 g/dL (32.0-36.0); Mean Corpuscular Hemoglobin 33.8 pg (27.0-31.0); Mean Corpuscular Volume 102.9 fL (78.0-102.0); Mean Platelet Volume 9.4 fl (9.2-11.8); Monocytes Absolute Auto 0.71 K/mm3 (0.10-0.90); Monocytes Percent Auto 10.2 % (2.0-11.0); Neutrophils Absolute Auto 4.4 K/mm3 (1.7-7.2); Neutrophils Percent Auto 63.2 % (50.0-70.0); Platelet Count Result 225 K/mm3 (150-420); Red Blood Count 3.79 M/mm3 (4.20-5.40); Red Cell Distribution Width 13.1 % (11.6-14.4)
[2021-06-07 09:03] LABS: Hemoglobin A1C 6.7 % (<5.7)
[2021-06-07 09:11] LABS: Albumin Level 3.7 g/dL (3.4-5.0); Anion Gap 9 mmol/L (8-16); Blood Urea Nitrogen 35 mg/dL (7-18); Calcium 9.3 mg/dL (8.5-10.1); Carbon Dioxide 29 mmol/L (21-32); Chloride 106 mmol/L (98-108); Estimated Glomerular Filt Rate 33; Glucose 117 mg/dL (70-99); Osmolality Calculated 307 mOsm/kg (285-295); Phosphorus 4.5 mg/dL (2.6-4.7); Potassium 4.2 mmol/L (3.5-5.1); Sodium 144 mmol/L (136-145); Uric Acid 10.3 mg/dL (2.6-6.0)
[2021-06-12 14:02] LABS: Parathyroid Intact 125 pg/mL (14-64)
== END 2021-06-07 08:27 | disposition home or self-care (01) ==
LOC: CHSLAB 08:32
PROVIDERS: PCP Nurse Practitioner Family; Visit Provider Internal Medicine Nephrology
DX: E11.9 Type 2 diabetes mellitus without complications (principal); N18.32 Chronic kidney disease, stage 3b
CPT/HCPCS: 36415; 80069; 83036; 83970; 84550; 85025

== ENCOUNTER 2021-10-11 06:49 | Outpatient (CLI) | payer MEDICARE, SELFPAY ==
[2021-10-11 07:20] LABS: Basophils Absolute Auto 0.07 K/mm3 (0.00-0.10); Basophils Percent Auto 0.8 % (0.0-1.0); Eosinophils Absolute Auto 0.14 K/mm3 (0.02-0.50); Eosinophils Percent Auto 1.7 % (1.0-6.0); Hematocrit 34.4 % (35.0-42.0); Hemoglobin 11.3 g/dL (11.7-13.8); Immature Granulocyte Absolute 0.21 K/mm3 (0.00-0.00); Immature Granulocyte Percent A 2.5 % (0.0-0.0); Lymphocytes Absolute Auto 2.06 K/mm3 (1.10-4.50); Lymphocytes Percent Auto 24.6 % (18.0-42.0); Mean Corpuscular HGB Conc 32.8 g/dL (32.0-36.0); Mean Corpuscular Hemoglobin 33.8 pg (27.0-31.0); Mean Platelet Volume 9.5 fl (9.2-11.8); Monocytes Absolute Auto 0.79 K/mm3 (0.10-0.90); Monocytes Percent Auto 9.4 % (2.0-11.0); Neutrophils Absolute Auto 5.1 K/mm3 (1.7-7.2); Platelet Count Result 247 K/mm3 (150-420); Red Blood Count 3.34 M/mm3 (4.20-5.40); Red Cell Distribution Width 13.9 % (11.6-14.4); White Blood Count 8.4 K/mm3 (4.8-10.8)
[2021-10-11 07:50] LABS: Albumin Level 3.5 g/dL (3.4-5.0); Anion Gap 7 mmol/L (8-16); Blood Urea Nitrogen 27 mg/dL (7-18); Calcium 9.1 mg/dL (8.5-10.1); Carbon Dioxide 30 mmol/L (21-32); Chloride 108 mmol/L (98-108); Estimated Glomerular Filt Rate 36; Glucose 134 mg/dL (70-99); Osmolality Calculated 307 mOsm/kg (285-295); Phosphorus 3.8 mg/dL (2.6-4.7); Potassium 3.9 mmol/L (3.5-5.1); Sodium 145 mmol/L (136-145); Uric Acid 5.8 mg/dL (2.6-6.0)
== END 2021-10-11 06:50 | disposition home or self-care (01) ==
LOC: CHSLAB 06:53
PROVIDERS: PCP Nurse Practitioner Family; Visit Provider Nurse Practitioner Family
DX: N18.30 Chronic kidney disease, stage 3 unspecified (principal); E11.9 Type 2 diabetes mellitus without complications
CPT/HCPCS: 36415; 80069; 83036; 84550; 85025

== ENCOUNTER 2021-11-05 10:57 | Outpatient (CLI) | payer MEDICARE, SELFPAY ==
[2021-11-05 11:27] LABS: Basophils Absolute Auto 0.06 K/mm3 (0.00-0.10); Basophils Percent Auto 0.6 % (0.0-1.0); Eosinophils Absolute Auto 0.09 K/mm3 (0.02-0.50); Eosinophils Percent Auto 0.9 % (1.0-6.0); Hematocrit 37.3 % (35.0-42.0); Hemoglobin 12.5 g/dL (11.7-13.8); Immature Granulocyte Absolute 0.25 K/mm3 (0.00-0.00); Immature Granulocyte Percent A 2.4 % (0.0-0.0); Lymphocytes Absolute Auto 2.31 K/mm3 (1.10-4.50); Lymphocytes Percent Auto 21.9 % (18.0-42.0); Mean Corpuscular HGB Conc 33.5 g/dL (32.0-36.0); Mean Corpuscular Hemoglobin 34.2 pg (27.0-31.0); Mean Corpuscular Volume 101.9 fL (78.0-102.0); Mean Platelet Volume 9.2 fl (9.2-11.8); Monocytes Absolute Auto 0.87 K/mm3 (0.10-0.90); Monocytes Percent Auto 8.2 % (2.0-11.0); Platelet Count Result 259 K/mm3 (150-420); Red Blood Count 3.66 M/mm3 (4.20-5.40); Red Cell Distribution Width 13.8 % (11.6-14.4); White Blood Count 10.6 K/mm3 (4.8-10.8)
[2021-11-05 11:40] LABS: INR 0.9
[2021-11-05 12:41] LABS: Alanine Aminotransferase 37 U/L (14-59); Alkaline Phosphatase 126 U/L (46-116); Anion Gap 11 mmol/L (8-16); Aspartate Amino Transferase 13 U/L (15-37); Bilirubin,Total 0.5 mg/dL (0.00-1.00); Blood Urea Nitrogen 40 mg/dL (7-18); Calcium 9.5 mg/dL (8.5-10.1); Carbon Dioxide 27 mmol/L (21-32); Chloride 105 mmol/L (98-108); Estimated Glomerular Filt Rate 33; Ferritin 69 ng/mL (8-252); Glucose 114 mg/dL (70-99); Iron 107 ug/dL (50-170); Magnesium 2.1 mg/dL (1.8-2.4); Osmolality Calculated 306 mOsm/kg (285-295); Percent Iron Saturation 33 % (12-57); Phosphorus 4.3 mg/dL (2.6-4.7); Potassium 4.3 mmol/L (3.5-5.1); Sodium 143 mmol/L (136-145); Total Protein 6.9 g/dL (6.4-8.2)
[2021-11-05 12:57] LABS: Add Urine Microscopic? NO; Appearance Urine Clear (Clear); Bilirubin Urine Negative (Negative); Blood Urine Negative (Negative); Color Urine Light Yellow (Yellow); Glucose Urine UA Negative (Negative); Ketones Urine Negative (Negative); Leukocyte Esterase Ur Negative (Negative); Nitrate Urine Negative (Negative); Protein Urine Negative (Negative); Urobilinogen Urine 0.2 mg/dL (0.2-1.0)
[2021-11-08 15:49] LABS: Albumin 4.2 g/dL (3.8-4.8); Alpha 1 Globulin 0.4 g/dL (0.2-0.3); Beta 1 Globulin 0.4 g/dL (0.4-0.6); Gamma Globulin 0.7 g/dL (0.8-1.7)
[2021-11-09 13:44] LABS: Parathyroid Intact 120 pg/mL (14-64)
[2021-11-09 21:17] LABS: Total Protein/Creatinine Ratio 106 mg/g creat (21-161)
[2021-11-11 17:26] LABS: Vitamin D 25 Hydroxy 46 ng/mL (30-100)
[2021-11-12 10:36] LABS: Creatinine, Random Urine 0.106
== END 2021-11-05 10:58 | disposition home or self-care (01) ==
LOC: CHSLAB 11:07
PROVIDERS: PCP Nurse Practitioner Family; Visit Provider Nurse Practitioner Family
DX: N18.30 Chronic kidney disease, stage 3 unspecified (principal); D64.9 Anemia, unspecified; R23.3 Spontaneous ecchymoses; K90.0 Celiac disease; Z79.01 Long term (current) use of anticoagulants
CPT/HCPCS: 36415; 80053; 81003; 82306; 82570; 82728; 83540; 83550; 83735; 83970; 84100; 84155; 84156; 84165; 84166; 84550; 85025; 85610

== ENCOUNTER 2021-11-08 12:31 | Inpatient (IN) | payer MEDICARE, SELFPAY ==
[2021-11-08] VITALS (27 sets, daily range): BP systolic 89–132; BP diastolic 45–85; PULSE 57–68; RESP 16–18; TEMP 36.3–36.6; O2SAT 94–99; BMI 23.4
--- NOTE | ~2021-11-08 | CT_ITS ---
EXAMINATION: CT brain wo con DATE: 11/08/2021 13:55 INDICATION: Confusion. TECHNIQUE: Computed tomography (CT) of the head was performed without intravenous contrast. The mA wa s adjusted according to patient size. Iterative reconstruction technique was employed. The dose-lengt h product was 529.67 mGy-cm. COMPARISON: None FINDINGS: There is hypodensity in the right temporal parietal region, consistent with acute infarct. There is no intracranial hemorrhage or abnormal mass lesion. The ventricles are normal in size. The o rbits are normal. The mastoid air cells are normal. IMPRESSION: 1. Acute right temporal parietal infarct. Reviewed, dictated and finalized at location A.
--- NOTE | ~2021-11-08 | XR_ITS ---
XR chest 2V 11/08/2021 13:54 Indication: Altered mental status. Confusion. Procedure: 2 view chest Comparison: Comparison to multiple prior studies sequentially, with oldest reviewed study dated 12/18 06. Findings: Interval development of bibasilar airspace disease, consistent with pneumonia. No significa nt effusion. Heart size normal. No pneumothorax. There are surgical clips in the left upper abdomen. No acute osseous abnormality. There is scoliosis. Impression: 1: Bibasilar airspace disease, suspicious for pneumonia. Reviewed, dictated and finalized at location A. Impression: 1: Bibasilar airspace disease, suspicious for pneumonia.
--- NOTE | ~2021-11-08 | MR_ITS ---
EXAMINATION: MR brain/brain stem wo con DATE: 11/10/2021 10:09 INDICATION: CVA. TECHNIQUE: Magnetic resonance imaging (MRI) of the brain and brainstem was performed without intraven ous contrast. Sequences included sagittal and axial T1-weighted SE, axial diffusion-weighted FS SE, a xial T2*-weighted GRE, axial T2-weighted FLAIR Propeller, and axial T2-weighted Propeller. Apparent d iffusion coefficient (ADC) maps were created. COMPARISON: CT dated 12/09/2021. FINDINGS: There is gyral diffusion restriction in the right temporal and parietal lobes, consistent w ith acute infarction. There is mild mass effect. No associated hemorrhage. No ventriculomegaly or mid line shift. Midline sagittal images demonstrate a normal corpus callosum and craniovertebral junction . No ventriculomegaly or midline shift. Paranasal sinuses are unremarkable. Orbits are symmetric with out disconjugate gaze. There are scattered mild periventricular and subcortical white matter changes, most likely related to small vessel ischemic disease (microangiopathy). IMPRESSION: 1. Acute right temporal-parietal infarction with mild mass effect characterized by gyral effacement. Reviewed, dictated and finalized at location A.
--- NOTE | ~2021-11-08 | US_ITS ---
EXAMINATION: US carotid duplex BI DATE: 11/09/2021 12:11 INDICATION: Aphasia. TECHNIQUE: Grayscale, color Doppler, and pulsed Doppler images of the cervical carotid arteries were obtained. The degree of vessel stenosis is placed in one of the following categories: normal, <50%, 5 0-69%, >=70% but less than near-occlusion, near-occlusion, or total occlusion. Note that percent sten osis relative to normal distal artery lumen diameter is indirectly measured from velocity measurement s as described by Andrés, et al. Radiology 2003; 229:340-346. COMPARISON: None. FINDINGS: RIGHT: The right common carotid artery (CCA) peak systolic velocity (PSV) is 72 cm/s. The right internal car otid artery (ICA) PSV is 93 cm/s. The right ICA end-diastolic velocity (EDV) is 29 cm/s. The right IC A/CCA PSV ratio is 1.3. Grayscale and color Doppler images yield an estimate of <50% diameter reducti on from plaque in the ICA. There is antegrade flow in the right vertebral artery. LEFT: The left CCA PSV is 84 cm/s. The left ICA PSV is 99 cm/s. The left ICA EDV is 30 cm/s. The left ICA/C CA PSV ratio is 1.2. Grayscale and color Doppler images yield an estimate of <50% diameter reduction from plaque in the ICA. There is antegrade flow in the left vertebral artery. IMPRESSION: 1. <50% stenosis in the right internal carotid artery. 2. <50% stenosis in the left internal carotid artery. Reviewed, dictated and finalized at location A.
[2021-11-08 12:48] LABS: Glucose Point of Care 101 mg/dl (65-105)
--- NOTE | 2021-11-08 13:20 | ECG_ITS ---
Measurements Intervals [place] Rate: 53 P: 42 AR: 193 QRS: 9 QRSD: 75 T: 6 QT: 415 QTc: 391 Interpretive Statements SINUS BRADYCARDIA COMPARED TO ECG 11/18/2019 15:21:04 SINUS BRADYCARDIA NOW PRESENT Electronically Signed On 11-08-2021 18:38:57 CDT by Nisha Hampton M.D.
[2021-11-08 13:35] LABS: Add Urine Microscopic? YES; Appearance Urine Clear (Clear); Bilirubin Urine Negative (Negative); Blood Urine Negative (Negative); Color Urine Light Yellow (Yellow); Glucose Urine UA Negative (Negative); Ketones Urine Negative (Negative); Leukocyte Esterase Ur Trace (Negative); Nitrate Urine Negative (Negative); Protein Urine Negative (Negative); Urobilinogen Urine 0.2 mg/dL (0.2-1.0)
[2021-11-08] MEDS: SODIUM CHLORIDE 0.9% IV 1,000 ML 999 ML IV CONT (13:36)
[2021-11-08 13:40] LABS: Bacteria Urine Trace /hpf; RBC Urine None seen /hpf (0-2); Squamous Epithelial Cell Urine Few /hpf (Few); WBC Urine 0-3 /hpf (0-3)
[2021-11-08 13:43] LABS: Basophils Absolute Auto 0.05 K/mm3 (0.00-0.10); Basophils Percent Auto 0.6 % (0.0-1.0); Eosinophils Absolute Auto 0.11 K/mm3 (0.02-0.50); Eosinophils Percent Auto 1.4 % (1.0-6.0); Hematocrit 32.4 % (35.0-42.0); Hemoglobin 10.9 g/dL (11.7-13.8); Immature Granulocyte Absolute 0.18 K/mm3 (0.00-0.00); Immature Granulocyte Percent A 2.2 % (0.0-0.0); Lymphocytes Absolute Auto 1.62 K/mm3 (1.10-4.50); Mean Corpuscular HGB Conc 33.6 g/dL (32.0-36.0); Mean Corpuscular Hemoglobin 34.7 pg (27.0-31.0); Mean Corpuscular Volume 103.2 fL (78.0-102.0); Mean Platelet Volume 9.8 fl (9.2-11.8); Monocytes Absolute Auto 0.74 K/mm3 (0.10-0.90); Monocytes Percent Auto 9.1 % (2.0-11.0); Neutrophils Absolute Auto 5.4 K/mm3 (1.7-7.2); Neutrophils Percent Auto 66.7 % (50.0-70.0); Platelet Count Result 208 K/mm3 (150-420); Red Blood Count 3.14 M/mm3 (4.20-5.40); Red Cell Distribution Width 13.7 % (11.6-14.4); White Blood Count 8.1 K/mm3 (4.8-10.8)
[2021-11-08 14:02] LABS: Lactic Acid Reflex 0.3 mmol/L (0.4-2.0)
[2021-11-08 14:07] LABS: Alanine Aminotransferase 29 U/L (14-59); Albumin Level 3.2 g/dL (3.4-5.0); Alkaline Phosphatase 102 U/L (46-116); Anion Gap 7 mmol/L (8-16); Aspartate Amino Transferase 15 U/L (15-37); Bilirubin,Total 0.4 mg/dL (0.00-1.00); Blood Urea Nitrogen 35 mg/dL (7-18); Calcium 8.9 mg/dL (8.5-10.1); Carbon Dioxide 26 mmol/L (21-32); Chloride 106 mmol/L (98-108); Estimated Glomerular Filt Rate 30; Glucose 100 mg/dL (70-99); Osmolality Calculated 296 mOsm/kg (285-295); Potassium 4.5 mmol/L (3.5-5.1); Sodium 139 mmol/L (136-145); Thyroid Stimulating Hormone 0.34 uIU/mL (0.36-3.74); Total Protein 5.9 g/dL (6.4-8.2); Troponin I 7.4 ng/L (0.00-60.4)
[2021-11-08 14:07] LABS: SARS-CoV-2 Ag Negative (Negative)
[2021-11-08 14:08] LABS: CRP 0.8 mg/dL (0.0-0.9); NT Pro B Type Natriuretic Pept 410 pg/mL (0-125)
--- NOTE | 2021-11-08 14:13 | ED.AMS ---
HPI - Altered Mental Status General Chief Complaint: Altered Mental Status Stated Complaint: NOT ACTING RIGHT Source: patient and family Mode of arrival: wheelchair Limitations: language barrier and altered mental status History of Present Illness HPI narrative: this is a 76-year-old female with a history of hyperlipidemia hypothyroidism hypertension brought in with some confusion and impaired speech and thought, repeats the phrase Im fine over an 0ver, patient difficult to assess neurologically she is alert not oriented confused repeats the same phrase over and over, symptoms according to family member started yesterday at 4 in the afternoon after she called a family member and they realized that she appeared confused over the phone. Otherwise some patient as previously stated repeats over and over that she is fine, otherwise no chest pain no shortness of breath no abdominal pain. Patient is currently taking daily aspirin. patient is alert and has hearing aids and patient feels that her hearing aids are off and having a hard time with hearing verbal questions. complaint: altered mental status and confusion Onset (ago): day(s) Timing confirmed by: family member Severity: moderate Associated symptoms: denies other symptoms Related Data Home Medications Medication Instructions Recorded Confirmed aspirin 81 mg tablet,delayed 81 mg PO DAILY 10/19/19 11/08/21 release (Adult Aspirin Regimen) calcium carbonate 600 mg calcium 600 mg PO DAILY 10/19/19 11/08/21 (1,500 mg) tablet (Calcium) cholecalciferol (vitamin D3) 25 25 mcg PO DAILY 10/19/19 11/08/21 mcg (1,000 unit) capsule multivitamin (Daily Multi-Vitamin 1 tablet PO DAILY 05/15/21 11/08/21 tablet) allopurinol 100 mg tablet 100 mg PO DAILY 08/14/21 11/08/21 Allergies Allergy/AdvReac Type Severity Reaction Status Date / Time gluten Allergy Diarrhea Verified 11/08/21 12:54 Review of Systems Review of Systems: All systems reviewed & are unremarkable except as noted in HPI and below PMFSH Past Medical History Medical History Adenomatous colon polyp Celiac disease Chronic diarrhea Diarrhea Dysphagia Exposure to COVID-19 virus Gastritis with intestinal metaplasia of stomach HTN (hypertension) Hypercholesteremia Hypothyroidism Microscopic colitis Osteoporosis Rash of groin Type 2 diabetes mellitus Weakness Weight loss Surgical History Surgical History Hx of esophageal hernia repair Family History Family History Mother Type 2 diabetes mellitus Father Acute myocardial infarction Social History Social History Smoking status: Never smoker Tobacco type: cigarettes Alcohol intake: never Substance use: never Substance use type: does not use Additional occupation/education comments: Lives in her home. Boyfriend in the house Gender identity (if verbalized by the patient): Female Spiritual care concerns: No Exam Const: General: no acute distress Nutritional Appearance: well nourished Limitations: altered mental status and language barrier HENMT: Head: normal to inspection General nose exam: Normal external nose present Face and sinus: normal facial exam Mouth: Yes Normal oral and palatal mucosa present Eyes: Conjunctivae: conjunctivae normal Pupils: Equal, round and reactive pupils present EOM: EOMs intact bilaterally Direct Ophthalmoscopy: no photophobia Neck: Neck: normal visual inspection, no lymphadenopathy and no meningeal signs Chest: Chest palpation & inspection: normal inspection of the chest Resp: Effort & Inspection: normal respiratory effort Auscultation: clear to auscultation bilaterally Cardio: Rate: regular rate Rhythm: regular rhythm GI: GI Palp: Yes Soft to palpation Auscultati
[2021-11-08] MEDS: levoFLOXacin 500 MG/D5W 100 ML 500 MG/100 ML BAG 100 MG IVPB (14:51)
[2021-11-08] MEDS: CLOPIDOGREL BISULFATE 75 MG TABLET PO (14:51)
--- NOTE | 2021-11-08 16:26 | PC.NURSE ---
patient ambulatory to bathroom with steady gait.
--- NOTE | 2021-11-08 16:43 | ADMGEN ---
This patient, Brenda Molina, was admitted to 2nd Floor Room 207-1. Patient/family oriented to hospital policies and general routines including ID bracelet, bed and alarms, visiting hours, pain management, procedures, bathroom and other care routines, personal items, smoking policy, room service/diet, and visiting hours. Information on how to activate the Rapid Response Team has been discussed. Patient/Family are encouraged to report perceived risks to care and to ask questions if they do not understand what they are told or what they should do.
--- NOTE | 2021-11-08 17:35 | PC.NURSE ---
entered that patient had considered suicide in the last 6 months. patient's speech is improving since arrival on floor
[2021-11-08] MEDS: THIAMINE HCL INJ 100 MG, FOLIC ACID 1 MG, MULTIVITAMINS-12 INJ 10 ML, MAGNESIUM SULFATE... IV CONT (18:53)
[2021-11-08 21:49] LABS: Glucose Point of Care 158 mg/dl (65-105)
[2021-11-09] VITALS (9 sets, daily range): BP systolic 122–147; BP diastolic 61–83; PULSE 54–87; RESP 16–20; TEMP 36.4–37.3; O2SAT 93–98
[2021-11-09 05:26] LABS: Hematocrit 32.6 % (35.0-42.0); Hemoglobin 10.8 g/dL (11.7-13.8); Mean Corpuscular HGB Conc 33.1 g/dL (32.0-36.0); Mean Corpuscular Hemoglobin 34.6 pg (27.0-31.0); Mean Corpuscular Volume 104.5 fL (78.0-102.0); Mean Platelet Volume 9.7 fl (9.2-11.8); Platelet Count Result 196 K/mm3 (150-420); Red Blood Count 3.12 M/mm3 (4.20-5.40); Red Cell Distribution Width 13.7 % (11.6-14.4); White Blood Count 6.6 K/mm3 (4.8-10.8)
[2021-11-09 05:35] LABS: Hemoglobin A1C 7.2 % (<5.7)
[2021-11-09 05:43] LABS: Alanine Aminotransferase 24 U/L (14-59); Albumin Level 2.9 g/dL (3.4-5.0); Alkaline Phosphatase 95 U/L (46-116); Anion Gap 7 mmol/L (8-16); Aspartate Amino Transferase 14 U/L (15-37); Bilirubin,Total 0.3 mg/dL (0.00-1.00); Blood Urea Nitrogen 25 mg/dL (7-18); Calcium 8.6 mg/dL (8.5-10.1); Carbon Dioxide 26 mmol/L (21-32); Chloride 111 mmol/L (98-108); Estimated CRCL calculation 22 ml/min; Estimated Glomerular Filt Rate 34; Glucose 110 mg/dL (70-99); Magnesium 1.8 mg/dL (1.8-2.4); Osmolality Calculated 303 mOsm/kg (285-295); Potassium 4.3 mmol/L (3.5-5.1); Sodium 144 mmol/L (136-145); Total Protein 5.5 g/dL (6.4-8.2)
[2021-11-09] MEDS: LEVOTHYROXINE SODIUM 75 MCG TABLET PO (06:43)
[2021-11-09] MEDS: allopurinoL 100 MG TABLET PO (08:13)
[2021-11-09] MEDS: MULTIVITAMINS THERAPEUTIC TAB (*BKC) 1 TABLET PO (08:13)
[2021-11-09] MEDS: METOPROLOL TARTRATE 25 MG TABLET PO (08:13)
[2021-11-09] MEDS: hydroCHLOROthiazide 25 MG TABLET PO (08:13)
[2021-11-09] MEDS: CHOLECALCIFEROL 1,000 UNITS TABLET 1000 UNITS PO (08:13)
[2021-11-09] MEDS: CLOPIDOGREL BISULFATE 75 MG TABLET PO (08:14)
[2021-11-09] MEDS: ATORVASTATIN 10 MG TABLET 20 MG PO (08:14)
[2021-11-09] MEDS: lisinopriL 20 MG TABLET PO (08:14)
[2021-11-09] MEDS: PANTOPRAZOLE SOD SESQUIHYDRATE 20 MG TAB PO (08:15)
[2021-11-09] MEDS: ASPIRIN 81 MG ENTERIC TABLET PO (08:15)
[2021-11-09] MEDS: BUDESONIDE 3 MG CAP.SR.24H PO (08:15)
[2021-11-09 08:17] LABS: Glucose Point of Care 97 mg/dl (65-105)
--- NOTE | 2021-11-09 11:44 | PM.IMHP ---
H&P: HPI History of Present Illness Date/Time: 11/09/21 11:44 Chief Complaint: Language barrier with altered mental status Narrative: This is a 76-year-old female that reported to our emergency department with complaints of language barrier and altered mental status. Patient has a past medical history of hyperlipidemia hypothyroidism and hypertension. Patient is a poor historian all information obtained from medical records. Attempted to contact patient's sister was unable to return. According to patient her sister visited her and noted that something was wrong with her and brought her to our emergency department. According to documentation patient has some confusion with impaired speech. During this assessment patient was definitely aphasic. Vital signs 98.5, 72, 16, 96%, 147/66, WBC 6.6, hemoglobin 10.8, hematocrit 32.6, platelets 196, sodium 144, potassium 4.3, BUN 25, creatinine 1.50, glucose 110, hemoglobin A1c 7.2, total bilirubin 0.3, AST 14, ALT 24, BNP 14, CRP 0.8, troponin 7.4, lactic acid 0.3, UA with trace of leukocytes, CT of the head indicates acute right temporal parietal infarct EKG indicates sinus bradycardia with a heart rate of 53. Patient will be admitted for CVA. Patient does not appear to be in any distress Review of Systems Review of Systems: A 14 organ system Review of Systems was performed and pertinent positives included in the HPI, otherwise remaining ROS is negative. All systems reviewed & are unremarkable except as noted in HPI and below PMFSH Past Medical History Medical History Adenomatous colon polyp Celiac disease Chronic diarrhea Diarrhea Dysphagia Exposure to COVID-19 virus Gastritis with intestinal metaplasia of stomach HTN (hypertension) Hypercholesteremia Hypothyroidism Microscopic colitis Osteoporosis Rash of groin Type 2 diabetes mellitus Weakness Weight loss Surgical History Surgical History Hx of esophageal hernia repair Family History Family History Mother Type 2 diabetes mellitus Father Acute myocardial infarction Social History Social History Smoking status: Never smoker Tobacco type: cigarettes Alcohol intake: never Substance use: never Substance use type: does not use Additional occupation/education comments: Lives in her home. Boyfriend in the house Gender identity (if verbalized by the patient): Female Spiritual care concerns: No Meds Home Medications and Allergies Home Medications Medication Instructions Recorded Confirmed Type aspirin 81 mg tablet,delayed 81 mg PO DAILY 10/19/19 11/08/21 History release (Adult Aspirin Regimen) calcium carbonate 600 mg calcium 600 mg PO DAILY 10/19/19 11/08/21 History (1,500 mg) tablet (Calcium) cholecalciferol (vitamin D3) 25 25 mcg PO DAILY 10/19/19 11/08/21 History mcg (1,000 unit) capsule atorvastatin 20 mg tablet See Rx Instructions .Route 02/12/21 11/08/21 Rx .COMPLEX #90 tabs lisinopril 20 See Rx Instructions .Route 02/20/21 11/08/21 Rx mg-hydrochlorothiazide 25 mg tablet .COMPLEX #90 tabs multivitamin (Daily Multi-Vitamin 1 tablet PO DAILY 05/15/21 11/08/21 History tablet) budesonide 3 mg 3 mg PO DAILY colitis #90 ea 06/19/21 11/08/21 Rx capsule,delayed,extended release allopurinol 100 mg tablet 100 mg PO DAILY 08/14/21 11/08/21 History levothyroxine 75 mcg tablet See Rx Instructions .Route 09/21/21 11/08/21 Rx .COMPLEX #90 tabs metoprolol tartrate 25 mg tablet 25 mg PO DAILY #30 tabs 11/05/21 11/08/21 Rx omeprazole 20 mg capsule,delayed See Rx Instructions .Route 11/06/21 11/08/21 Rx release .COMPLEX #30 caps Allergies Allergy/AdvReac Type Severity Reaction Status Date / Time gluten Allergy Diarrhea Verified 11/08/21 12:54 Vital Sig
[2021-11-09] MEDS: levoFLOXacin 250 MG TABLET PO (15:08)
[2021-11-09 16:53] LABS: Glucose Point of Care 147 mg/dl (65-105)
--- NOTE | 2021-11-09 18:54 | PC.NURSE ---
Patient in room in recliner playing cards with visitor and became dizzy and nauseous. Visitor rang for the nurse and credit underwriter assessed vitals. BP 151/81. P 78. T99.0 R18. SPO2 97% on room air. Donor Services Specialist applied cool cloth to patient's head and assessed neurological systems. WNL. New order obtained for Compazine. Will continue to monitor.
[2021-11-09] MEDS: PROCHLORPERAZINE EDISYLATE 10 MG/2 ML VIAL IV PUSH (19:01)
[2021-11-09 20:11] LABS: Glucose Point of Care 87 mg/dl (65-105)
[2021-11-10] VITALS (7 sets, daily range): BP systolic 112–140; BP diastolic 54–66; PULSE 56–73; RESP 16–20; TEMP 35.8–37.1; O2SAT 96–97
[2021-11-10 05:17] LABS: Hematocrit 31.4 % (35.0-42.0); Hemoglobin 10.6 g/dL (11.7-13.8); Mean Corpuscular HGB Conc 33.8 g/dL (32.0-36.0); Mean Corpuscular Hemoglobin 34.2 pg (27.0-31.0); Mean Corpuscular Volume 101.3 fL (78.0-102.0); Mean Platelet Volume 9.4 fl (9.2-11.8); Platelet Count Result 180 K/mm3 (150-420); Red Cell Distribution Width 13.5 % (11.6-14.4); White Blood Count 6.5 K/mm3 (4.8-10.8)
[2021-11-10 05:35] LABS: Alanine Aminotransferase 24 U/L (14-59); Albumin Level 2.8 g/dL (3.4-5.0); Alkaline Phosphatase 98 U/L (46-116); Anion Gap 8 mmol/L (8-16); Aspartate Amino Transferase 17 U/L (15-37); Bilirubin,Total 0.4 mg/dL (0.00-1.00); Blood Urea Nitrogen 24 mg/dL (7-18); Calcium 8.9 mg/dL (8.5-10.1); Carbon Dioxide 27 mmol/L (21-32); Chloride 106 mmol/L (98-108); Estimated CRCL calculation 23 ml/min; Estimated Glomerular Filt Rate 35; Glucose 109 mg/dL (70-99); Osmolality Calculated 297 mOsm/kg (285-295); Potassium 4.1 mmol/L (3.5-5.1); Sodium 141 mmol/L (136-145); Total Protein 5.6 g/dL (6.4-8.2)
[2021-11-10] MEDS: LEVOTHYROXINE SODIUM 75 MCG TABLET PO (05:57)
[2021-11-10] MEDS: PANTOPRAZOLE SOD SESQUIHYDRATE 20 MG TAB PO (08:41)
[2021-11-10] MEDS: CHOLECALCIFEROL 1,000 UNITS TABLET 1000 UNITS PO (08:41)
[2021-11-10] MEDS: BUDESONIDE 3 MG CAP.SR.24H PO (08:41)
[2021-11-10] MEDS: ATORVASTATIN 10 MG TABLET 20 MG PO (08:42)
[2021-11-10] MEDS: CLOPIDOGREL BISULFATE 75 MG TABLET PO (08:42)
[2021-11-10] MEDS: ASPIRIN 81 MG ENTERIC TABLET PO (08:42)
[2021-11-10] MEDS: hydroCHLOROthiazide 25 MG TABLET PO (08:42)
[2021-11-10] MEDS: MULTIVITAMINS THERAPEUTIC TAB (*BKC) 1 TABLET PO (08:42)
[2021-11-10] MEDS: allopurinoL 100 MG TABLET PO (08:42)
[2021-11-10] MEDS: lisinopriL 20 MG TABLET PO (08:42)
[2021-11-10] MEDS: METOPROLOL TARTRATE 25 MG TABLET PO (08:42)
--- NOTE | 2021-11-10 10:49 | WPDPN ---
Progress Note: A&P Assessment and Plan (1) Dysphagia: Code(s): R13.10 - Dysphagia, unspecified Status: Acute Assessment and Plan: Secondary to CVA Speech therapy eval pending (2) Type 2 diabetes mellitus: Code(s): E11.9 - Type 2 diabetes mellitus without complications Status: Acute Assessment and Plan: Sugar below 300 A1c 7.2 Continue diabetic diet Continue Accu-Chek with sliding scale hypoglycemic protocol (3) Acute kidney injury: Code(s): N17.9 - Acute kidney failure, unspecified Status: Acute Assessment and Plan: Added 1.50 peers to be at baseline Avoid nephrotoxic agent Renal dose medication (4) Celiac disease: Code(s): K90.0 - Celiac disease Status: Acute (5) CVA (cerebral vascular accident): Code(s): I63.9 - Cerebral infarction, unspecified Status: Acute Assessment and Plan: CT of the head indicatesAcute right temporal parietal infarct. Carotid Dopplers less than <50% to the left and right internal carotid artery Continue statins with aspirin and Plavix Patient will transition to swing bed Plan Subjective Date/time seen: 11/10/21 10:49 Review of Systems Review of Systems: All systems reviewed & are unremarkable except as noted in HPI and below Exam Narrative: GENERAL: Elderly this is a well-nourished, well-developed patient, in no apparent distress. HEAD: normocephalic, atraumatic. EYES: PERRL. Sclera clear/white. Vision is grossly intact. EARS: External ears normal, auditory canals clear and without drainage, TMs normal without perforation. Hearing grossly intact. NOSE: External nose normal with no obvious nasal discharge, nares without redness, no rhinorrhea. THROAT: Mucous membranes moist, posterior pharynx clear. NECK: Neck supple, non-tender without lymphadenopathy, masses or thyromegaly. CARDIOVASCULAR: Regular rate and rhythm without murmurs, gallops, or rubs. RESPIRATORY: Clear to auscultation. Breath sounds equal bilaterally. No wheezes, rales, or rhonchi. GASTROINTESTINAL: Abdomen soft, non-tender, nondistended. Bowel sounds are active. No hepato-splenomegaly, or palpable masses. No guarding. SKIN: warm, intact with no suspicious lesions or rash, good texture and turgor. NEURO: aphasia steady gait EXTREMITIES: Normal range of motion. No edema. No calf tenderness. Negative Homans sign bilaterally. BACK: Nontender without deformity or crepitance. No flank tenderness. Const: Nutritional Appearance: edematous Objective Data Vital Signs Vital Signs: Vital Signs - 24 hr 11/09/21 12:00 11/09/21 12:00 11/09/21 16:00 Temperature 99.2 F Pulse Rate 63 61 60 Respiratory Rate 16 Blood Pressure 127/83 Pulse Oximetry 97 Oxygen Delivery Room Air 11/09/21 16:00 11/09/21 20:00 11/09/21 20:00 Temperature 98.8 F 98 F Pulse Rate 60 87 70 Respiratory Rate 16 20 Blood Pressure 123/73 128/61 Pulse Oximetry 98 93 Oxygen Delivery Room Air Room Air 11/09/21 23:53 11/09/21 23:54 11/10/21 04:00 Temperature 97.6 F Pulse Rate 70 70 73 Respiratory Rate 20 Blood Pressure 122/74 Pulse Oximetry 98 Oxygen Delivery Room Air 11/10/21 04:00 11/10/21 08:42 11/10/21 08:00 Temperature 96.4 F L Pulse Rate 73 64 64 Respiratory Rate 20 Blood Pressure 130/66 Pulse Oximetry 96 Oxygen Delivery Room Air 11/10/21 08:00 Temperature 98.7 F Pulse Rate 64 Respiratory Rate 17 Blood Pressure 140/54 L Pulse Oximetry 97 Oxygen Delivery Room Air Intake/Output Intake/Output: Intake & Output 11/07/21 11/08/21 11/09/21 11/10/21 23:59 23:59 23:59 23:59 Intake Total 1350 2533.2 400 Output Total 0 1200 700 Balance 1350 1333.2 -300 Meds/Results Medications: Active Medications Generic Name Dose Route Start Last Admin Trade Name Freq PRN Reason Stop Dose Admin Acetaminophen 650 mg 11/09/21 07:18 Acetaminophen 325 Mg Tablet PO Q4H PRN
--- NOTE | 2021-11-10 10:56 | STIPEVAL ---
Thank you for referring Brenda Molina to [facility].? The patient is scheduled to be seen for therapy? 3-5x/week for 2 weeks. Please review, sign, date and return this plan of care KALEB. I agree with and certify that the following plan of care is medically necessary. Referring Physician Date Admitting Provider: Ean Dowd MD Attending Provider: Ena Dowd MD Referring Provider: KOURTNEY Inpatient Evaluation Start: 11/10/21 10:34 Freq: Status: Active Protocol: Document 11/10/21 09:05 MATTB (Rec: 11/10/21 10:56 MJB [id number]) Therapy Assessment Status Assessment Status Assessment Status Evaluation Prior Level of Function Home Setting Living Situation With Significant Other Prior Swallow Level Prior Intake Method Oral Prior Diet Regular (Level 7 Diet) Prior Liquid Consistency Thin (Level 0 Diet) Comments Additional Prior Level of Function PLOF was difficulty to obtain Comments due to patient having difficulty expressing skills prior to CVA Pain Assessment Timing of Pain Assessment Timing of Pain Assessment Assessment Self Report Self Report Pain Level 0 Pain Score Pain Score 0: Self Report Bedside Swallow Evaluation General Reports Dysphagia No History of Related Medical Diagnosis CVA Meal Observed Breakfast History of Dysphagia No Intake Method Prior to Swallow Oral Evaluation Diet Prior to Swallow Evaluation Regular, Level 7 Liquid Consistency Prior to Swallow Thin (0) Evaluation Cognition During Swallowing Alert,Confused,Eats Quickly, Impulsive Consistency Solid Consistency 5 mL Method of Presentation Finger/Hand Behaviors Observed Apparently Normal Swallow, Multiple Swallows Used Occurrence of Coughing None Vocal Quality After Swallowing Clear Swallow Palpation Results Good Swallow Initiation,Strong Laryngeal Elevation Thin Uncontrolled 1 Method of Presentation Cup Behaviors Observed Apparently Normal Swallow, Multiple Swallows Used,Oral Residue Occurrence of Coughing None Vocal Quality After Swallowing Clear Swallow Palpation Results Good Swallow Initiation,Strong Laryngeal Elevation Tolerance Tolerance For Swallow No Distress Alertness Awake/Safe Cooperativeness Calm Attention Impulsive Awareness of Secretions
[2021-11-10 11:59] LABS: Glucose Point of Care 149 mg/dl (65-105)
[2021-11-10] MEDS: levoFLOXacin 250 MG TABLET PO (15:55)
[2021-11-10 16:33] LABS: Glucose Point of Care 130 mg/dl (65-105)
[2021-11-10 22:18] LABS: Glucose Point of Care 114 mg/dl (65-105)
[2021-11-11] VITALS (7 sets, daily range): BP systolic 104–150; BP diastolic 55–81; PULSE 58–69; RESP 16–18; TEMP 36.3–37.2; O2SAT 95–98
--- NOTE | 2021-11-11 01:38 | WPDPN ---
Progress Note: A&P Assessment and Plan (1) Dysphagia: Code(s): R13.10 - Dysphagia, unspecified Status: Acute Assessment and Plan: Secondary to CVA Speech therapy eval pending (2) Type 2 diabetes mellitus: Code(s): E11.9 - Type 2 diabetes mellitus without complications Status: Acute Assessment and Plan: Sugar below 300 A1c 7.2 Continue diabetic diet Continue Accu-Chek with sliding scale hypoglycemic protocol (3) Acute kidney injury: Code(s): N17.9 - Acute kidney failure, unspecified Status: Acute Assessment and Plan: Added 1.50 peers to be at baseline Avoid nephrotoxic agent Renal dose medication (4) Celiac disease: Code(s): K90.0 - Celiac disease Status: Acute (5) CVA (cerebral vascular accident): Code(s): I63.9 - Cerebral infarction, unspecified Status: Acute Assessment and Plan: CT of the head indicatesAcute right temporal parietal infarct. MRI indicates Acute right temporal-parietal infarction Carotid Dopplers less than <50% to the left and right internal carotid artery Continue statins with aspirin and Plavix Patient will transition to swing bed Plan Subjective Date/time seen: 11/11/21 01:38 Interval history: Patient condition is unchanged she has been evaluated by speech therapy. Speech therapy recommends that she continues therapy. Patient will transition to full bed on Friday if she qualifies. The patient denies SOB, CP, palpitation, extremity numbness, lightheadedness, dizziness, constipation, diarrhea, chills, or fever. Review of Systems Review of Systems: All systems reviewed & are unremarkable except as noted in HPI and below Exam Narrative: GENERAL: Elderly this is a well-nourished, well-developed patient, in no apparent distress. HEAD: normocephalic, atraumatic. EYES: PERRL. Sclera clear/white. Vision is grossly intact. EARS: External ears normal, auditory canals clear and without drainage, TMs normal without perforation. Hearing grossly intact. NOSE: External nose normal with no obvious nasal discharge, nares without redness, no rhinorrhea. THROAT: Mucous membranes moist, posterior pharynx clear. NECK: Neck supple, non-tender without lymphadenopathy, masses or thyromegaly. CARDIOVASCULAR: Regular rate and rhythm without murmurs, gallops, or rubs. RESPIRATORY: Clear to auscultation. Breath sounds equal bilaterally. No wheezes, rales, or rhonchi. GASTROINTESTINAL: Abdomen soft, non-tender, nondistended. Bowel sounds are active. No hepato-splenomegaly, or palpable masses. No guarding. SKIN: warm, intact with no suspicious lesions or rash, good texture and turgor. NEURO: aphasia steady gait EXTREMITIES: Normal range of motion. No edema. No calf tenderness. Negative Homans sign bilaterally. BACK: Nontender without deformity or crepitance. No flank tenderness. Const: Nutritional Appearance: edematous Objective Data Vital Signs Vital Signs: Vital Signs - 24 hr 11/10/21 04:00 11/10/21 04:00 11/10/21 08:42 Temperature 96.4 F L Pulse Rate 73 73 64 Respiratory Rate 20 Blood Pressure 130/66 Pulse Oximetry 96 Oxygen Delivery Room Air 11/10/21 08:00 11/10/21 08:00 11/10/21 12:00 Temperature 98.7 F Pulse Rate 64 64 56 L Respiratory Rate 17 Blood Pressure 140/54 L Pulse Oximetry 97 Oxygen Delivery Room Air 11/10/21 12:00 11/10/21 16:00 11/10/21 16:00 Temperature 98.6 F 97.9 F Pulse Rate 56 L 59 L 60 Respiratory Rate 16 17 Blood Pressure 120/56 L 112/57 L Pulse Oximetry 97 97 Oxygen Delivery Room Air Room Air 11/10/21 19:55 11/10/21 19:58 11/11/21 00:00 Temperature 98.2 F Pulse Rate 62 62 58 L Respiratory Rate 18 Blood Pressure 130/63 Pulse Oximetry 97 Oxygen Delivery Room Air 11/11/21 00:00 Temperature 97.8 F Pulse Rate 58 L Respiratory Rate 16 Blood Pressure 128/69 Pulse Oximetry 98 Oxygen Delivery Room Air Intake/O
[2021-11-11 05:40] LABS: Hematocrit 33.7 % (35.0-42.0); Hemoglobin 11.3 g/dL (11.7-13.8); Mean Corpuscular HGB Conc 33.5 g/dL (32.0-36.0); Mean Corpuscular Hemoglobin 33.9 pg (27.0-31.0); Mean Corpuscular Volume 101.2 fL (78.0-102.0); Platelet Count Result 215 K/mm3 (150-420); Red Blood Count 3.33 M/mm3 (4.20-5.40); Red Cell Distribution Width 13.3 % (11.6-14.4)
[2021-11-11 05:53] LABS: Alanine Aminotransferase 12 U/L (14-59); Albumin Level 3.1 g/dL (3.4-5.0); Alkaline Phosphatase 111 U/L (46-116); Anion Gap 10 mmol/L (8-16); Aspartate Amino Transferase 20 U/L (15-37); Bilirubin,Total 0.4 mg/dL (0.00-1.00); Blood Urea Nitrogen 28 mg/dL (7-18); Carbon Dioxide 26 mmol/L (21-32); Chloride 104 mmol/L (98-108); Estimated CRCL calculation 22 ml/min; Estimated Glomerular Filt Rate 34; Glucose 117 mg/dL (70-99); Osmolality Calculated 296 mOsm/kg (285-295); Potassium 3.7 mmol/L (3.5-5.1); Sodium 140 mmol/L (136-145); Total Protein 6.2 g/dL (6.4-8.2)
[2021-11-11] MEDS: LEVOTHYROXINE SODIUM 75 MCG TABLET PO (06:06)
[2021-11-11] MEDS: allopurinoL 100 MG TABLET PO (08:56)
[2021-11-11] MEDS: CHOLECALCIFEROL 1,000 UNITS TABLET 1000 UNITS PO (08:56)
[2021-11-11] MEDS: BUDESONIDE 3 MG CAP.SR.24H PO (08:56)
[2021-11-11] MEDS: PANTOPRAZOLE SOD SESQUIHYDRATE 20 MG TAB PO (08:56)
[2021-11-11] MEDS: MULTIVITAMINS THERAPEUTIC TAB (*BKC) 1 TABLET PO (08:56)
[2021-11-11] MEDS: CLOPIDOGREL BISULFATE 75 MG TABLET PO (08:56)
[2021-11-11] MEDS: lisinopriL 20 MG TABLET PO (08:56)
[2021-11-11] MEDS: ATORVASTATIN 10 MG TABLET 20 MG PO (08:56)
[2021-11-11] MEDS: ASPIRIN 81 MG ENTERIC TABLET PO (08:57)
[2021-11-11] MEDS: METOPROLOL TARTRATE 25 MG TABLET PO (08:57)
[2021-11-11] MEDS: hydroCHLOROthiazide 25 MG TABLET PO (08:58)
[2021-11-11] MEDS: CALCIUM CARBONATE (TUMS) 500 MG (200 MG ELEMENTAL) 400 MG PO (11:12)
[2021-11-11 11:56] LABS: Glucose Point of Care 107 mg/dl (65-105)
[2021-11-11 16:42] LABS: Glucose Point of Care 144 mg/dl (65-105)
[2021-11-11] MEDS: levoFLOXacin 250 MG TABLET PO (18:13)
[2021-11-12] VITALS: BP 111/58; PULSE 74; RESP 16; TEMP 36.6; O2SAT 98
[2021-11-12 03:50] VITALS: BP 136/65; PULSE 68; RESP 18; TEMP 36.2; O2SAT 97
[2021-11-12 05:17] LABS: Hematocrit 32.9 % (35.0-42.0); Hemoglobin 11.2 g/dL (11.7-13.8); Mean Corpuscular Hemoglobin 34.6 pg (27.0-31.0); Mean Corpuscular Volume 101.5 fL (78.0-102.0); Mean Platelet Volume 9.7 fl (9.2-11.8); Platelet Count Result 211 K/mm3 (150-420); Red Blood Count 3.24 M/mm3 (4.20-5.40); Red Cell Distribution Width 13.4 % (11.6-14.4); White Blood Count 8.8 K/mm3 (4.8-10.8)
[2021-11-12 05:31] LABS: Alanine Aminotransferase 35 U/L (14-59); Alkaline Phosphatase 116 U/L (46-116); Anion Gap 7 mmol/L (8-16); Aspartate Amino Transferase 21 U/L (15-37); Bilirubin,Total 0.4 mg/dL (0.00-1.00); Blood Urea Nitrogen 34 mg/dL (7-18); Calcium 9.3 mg/dL (8.5-10.1); Carbon Dioxide 28 mmol/L (21-32); Chloride 103 mmol/L (98-108); Estimated CRCL calculation 20 ml/min; Estimated Glomerular Filt Rate 30; Glucose 119 mg/dL (70-99); Osmolality Calculated 294 mOsm/kg (285-295); Potassium 3.9 mmol/L (3.5-5.1); Sodium 138 mmol/L (136-145); Total Protein 6.1 g/dL (6.4-8.2)
[2021-11-12] MEDS: LEVOTHYROXINE SODIUM 75 MCG TABLET PO (05:42)
[2021-11-12 08:00] VITALS: BP 128/63; PULSE 65; PULSE 67; RESP 16; TEMP 36.7; O2SAT 97
[2021-11-12] MEDS: BUDESONIDE 3 MG CAP.SR.24H PO (08:01)
[2021-11-12] MEDS: CHOLECALCIFEROL 1,000 UNITS TABLET 1000 UNITS PO (08:01)
[2021-11-12] MEDS: MULTIVITAMINS THERAPEUTIC TAB (*BKC) 1 TABLET PO (08:01)
[2021-11-12 08:02] VITALS: PULSE 65
[2021-11-12] MEDS: allopurinoL 100 MG TABLET PO (08:02)
[2021-11-12] MEDS: ASPIRIN 81 MG ENTERIC TABLET PO (08:02)
[2021-11-12] MEDS: METOPROLOL TARTRATE 25 MG TABLET PO (08:02)
[2021-11-12] MEDS: hydroCHLOROthiazide 25 MG TABLET PO (08:03)
[2021-11-12] MEDS: lisinopriL 20 MG TABLET PO (08:03)
[2021-11-12] MEDS: PANTOPRAZOLE SOD SESQUIHYDRATE 20 MG TAB PO (08:03)
[2021-11-12] MEDS: ATORVASTATIN 10 MG TABLET 20 MG PO (08:03)
[2021-11-12] MEDS: CLOPIDOGREL BISULFATE 75 MG TABLET PO (08:03)
[2021-11-12 08:04] LABS: Glucose Point of Care 117 mg/dl (65-105)
--- NOTE | 2021-11-12 10:06 | PM.DS ---
DS: Admitting Diagnosis Discharge Date 11/12/2021 Admitting Diagnosis CVA DS: Discharge Diagnosis Discharge Diagnosis (1) Dysphagia: Code(s): R13.10 - Dysphagia, unspecified Status: Acute Assessment and Plan: Secondary to CVA Discharge with speech therapy (2) Type 2 diabetes mellitus: Code(s): E11.9 - Type 2 diabetes mellitus without complications Status: Acute Assessment and Plan: Sugar below 300 A1c 7.2 Continue diabetic diet Continue Accu-Chek with sliding scale hypoglycemic protocol (3) Acute kidney injury: Code(s): N17.9 - Acute kidney failure, unspecified Status: Acute Assessment and Plan: Cr 1.50 appears to be at baseline Avoid nephrotoxic agent Renal dose medication (4) Celiac disease: Code(s): K90.0 - Celiac disease Status: Acute (5) CVA (cerebral vascular accident): Code(s): I63.9 - Cerebral infarction, unspecified Status: Acute Assessment and Plan: CT of the head indicatesAcute right temporal parietal infarct. MRI indicates Acute right temporal-parietal infarction Carotid Dopplers less than <50% to the left and right internal carotid artery Continue statins with aspirin and Plavix Patient will discharge with PT/OT/nursing and speech therapy Plan DS: Summary Hospital Course Reason for hospitalization: Language barrier with altered mental status Hospital Course: This is a 76-year-old female that reported to our emergency department with complaints of language barrier and altered mental status.? Patient has a past medical history of hyperlipidemia hypothyroidism and hypertension.? According to patient's significant other she left him that morning with no concerns or deficiencies. She then went to her appointment and afterwards went to her sister's house. While at her sister house her sister noticed that her language was disorientated and brought her to our emergency department.at admission patient was aphasic in imaging indicated a CVA. During the stay patient has improved she remains occasionally aphasic with improvements, she was evaluated by PT and it was determined that she will be safe to return home and have outpatient PT OT. Patient will discharge home with home health nursing, PT OT and speech therapy. Discharge instructions reviewed with patient, as well as provided in writing per nursing staff. The instructions also include specific and strict return/GO TO THE ER as well as f/u information. All questions have been answered, and the patient and/or family deny any further questions with discharge and discharge plan. The patient denies SOB, CP, palpitation, extremity numbness, lightheadedness, dizziness, constipation, diarrhea, chills, or fever. Time Spent with Patient Time attestation: Total time spent providing and/or coordinating discharge services: Exam Narrative: GENERAL: Elderly this is a well-nourished, well-developed patient, in no apparent distress. HEAD: normocephalic, atraumatic. EYES: PERRL. Sclera clear/white. Vision is grossly intact. EARS: External ears normal, auditory canals clear and without drainage, TMs normal without perforation. Hearing grossly intact. NOSE: External nose normal with no obvious nasal discharge, nares without redness, no rhinorrhea. THROAT: Mucous membranes moist, posterior pharynx clear. NECK: Neck supple, non-tender without lymphadenopathy, masses or thyromegaly. CARDIOVASCULAR: Regular rate and rhythm without murmurs, gallops, or rubs. RESPIRATORY: Clear to auscultation. Breath sounds equal bilaterally. No wheezes, rales, or rhonchi. GASTROINTESTINAL: Abdomen soft, non-tender, nondistended. Bowel sounds are active. No hepato-splenomegaly, or palpable masses. No guarding. SKIN: warm, intact with no suspicious lesions or rash, good texture and turgor. NEURO: occasional aphasia steady gait with occasional cognitive deficiency EXTREMITIES: Normal range of motion
[2021-11-12 11:49] LABS: Glucose Point of Care 88 mg/dl (65-105)
[2021-11-12 12:00] VITALS: BP 116/51; PULSE 62; PULSE 65; RESP 16; TEMP 36.7; O2SAT 97
[2021-11-12] MEDS: levoFLOXacin 250 MG TABLET PO (15:04)
--- NOTE | 2021-11-12 15:45 | PC.NURSE ---
Patient discharged from unit at 1545. Discharge instructions given to patient and patient's sister. Both voiced understanding. IV site discontinued and telemetry equipment removed. Personal belongings sent home with patient. Patient left griffin in w/c and left facility in private vehicle.
--- NOTE | 2021-11-14 10:32 | PC.NURSE ---
Invalid phone number for discharge call back.
== END 2021-11-12 15:45 | disposition home health service (06) | DRG 65 ==
LOC: CHSED 16:20 → CHS2ND 16:21
PROVIDERS: Nurse Practitioner; Admitting Provider Internal Medicine; Emergency Provider Emergency Medicine; PCP Nurse Practitioner Family; Visit Provider Internal Medicine
DX: I63.9 Cerebral infarction, unspecified (principal); J18.9 Pneumonia, unspecified organism; N17.9 Acute kidney failure, unspecified; R47.02 Dysphasia; I65.23 Occlusion and stenosis of bilateral carotid arteries; I10 Essential (primary) hypertension; E78.5 Hyperlipidemia, unspecified; E03.9 Hypothyroidism, unspecified; E11.9 Type 2 diabetes mellitus without complications; E78.00 Pure hypercholesterolemia, unspecified; Z20.822 Contact with and (suspected) exposure to COVID-19; Z79.82 Long term (current) use of aspirin; K90.0 Celiac disease; M81.0 Age-related osteoporosis without current pathological fracture; Z86.010 Personal history of colon polyps
CPT/HCPCS: 36415; 70450; 70551; 71046; 80053; 81001; 82948; 83036; 83605; 83735; 83880; 84443; 84484; 85025; 85027; 86140; 87040; 87426; 92507; 92523; 92610; 93005; 93880; 96361; 96365; 97110; 97112; 97161; 97165; 97530; 97535; 99285; A9270; C9803; J0780; J1956; J3411; J3475; J7030

== ENCOUNTER 2021-11-12 13:15 | Outpatient (NON) | payer MEDICARE, SELFPAY ==
[2021-11-18 14:44] LABS: Total Protein/Creatinine Ratio 74 mg/g creat (21-161)
[2021-11-21 15:12] LABS: Creatinine, Random Urine 54
== END 2021-11-12 13:16 | disposition home or self-care (01) ==
PROVIDERS: PCP Nurse Practitioner Family
DX: N18.30 Chronic kidney disease, stage 3 unspecified (principal)
CPT/HCPCS: 82570; 84156; 84166

== ENCOUNTER 2021-11-27 11:05 | Outpatient (NON) | payer MEDICARE, SELFPAY ==
[2021-11-27 11:21] LABS: Basophils Absolute Auto 0.08 K/mm3 (0.00-0.10); Basophils Percent Auto 0.9 % (0.0-1.0); Eosinophils Absolute Auto 0.09 K/mm3 (0.02-0.50); Hematocrit 33.5 % (35.0-42.0); Hemoglobin 11.2 g/dL (11.7-13.8); Immature Granulocyte Absolute 0.23 K/mm3 (0.00-0.00); Immature Granulocyte Percent A 2.6 % (0.0-0.0); Lymphocytes Absolute Auto 2.16 K/mm3 (1.10-4.50); Lymphocytes Percent Auto 24.3 % (18.0-42.0); Mean Corpuscular HGB Conc 33.4 g/dL (32.0-36.0); Mean Corpuscular Hemoglobin 34.3 pg (27.0-31.0); Mean Corpuscular Volume 102.4 fL (78.0-102.0); Mean Platelet Volume 10.1 fl (9.2-11.8); Monocytes Absolute Auto 0.43 K/mm3 (0.10-0.90); Monocytes Percent Auto 4.8 % (2.0-11.0); Neutrophils Absolute Auto 5.9 K/mm3 (1.7-7.2); Neutrophils Percent Auto 66.4 % (50.0-70.0); Platelet Count Result 330 K/mm3 (150-420); Red Blood Count 3.27 M/mm3 (4.20-5.40); Red Cell Distribution Width 13.9 % (11.6-14.4); White Blood Count 8.9 K/mm3 (4.8-10.8)
[2021-11-27 11:43] LABS: Alanine Aminotransferase 27 U/L (14-59); Albumin Level 3.4 g/dL (3.4-5.0); Alkaline Phosphatase 106 U/L (46-116); Anion Gap 11 mmol/L (8-16); Aspartate Amino Transferase 15 U/L (15-37); Bilirubin,Total 0.4 mg/dL (0.00-1.00); Blood Urea Nitrogen 64 mg/dL (7-18); Calcium 9.1 mg/dL (8.5-10.1); Carbon Dioxide 26 mmol/L (21-32); Chloride 99 mmol/L (98-108); Estimated Glomerular Filt Rate 22; Glucose 209 mg/dL (70-99); NT Pro B Type Natriuretic Pept 270 pg/mL (0-125); Osmolality Calculated 306 mOsm/kg (285-295); Potassium 3.2 mmol/L (3.5-5.1); Sodium 136 mmol/L (136-145); Total Protein 6.6 g/dL (6.4-8.2)
[2021-11-27 12:00] LABS: CRP < 0.2 mg/dL (0.0-0.9)
== END 2021-11-27 11:06 | disposition home or self-care (01) ==
LOC: CHSLAB 11:07
PROVIDERS: Visit Provider Nurse Practitioner Family
DX: K90.0 Celiac disease (principal); N17.9 Acute kidney failure, unspecified; E11.9 Type 2 diabetes mellitus without complications; I10 Essential (primary) hypertension; I50.22 Chronic systolic (congestive) heart failure
CPT/HCPCS: 36415; 80053; 83880; 85025; 86140

== ENCOUNTER 2022-01-03 11:33 | Outpatient (CLI) | payer MEDICARE, SELFPAY ==
--- NOTE | ~2022-01-03 | MM_ITS ---
EXAMINATION: MM screening [facility] BI w kelsea HISTORY: Screening mammogram TECHNIQUE: Craniocaudal and mediolateral oblique 3-D tomosynthesis images were obtained and synthetic 2-D images were generated. CAD analysis was submitted and interpreted. COMPARISON: 12/26/2020, 12/23/2019, 12/21/2019, 12/16/2018 BREAST PARENCHYMAL COMPOSITION: There are scattered areas of fibroglandular density. FINDINGS: No suspicious mass, calcification, or architectural distortion are identified in either venecia ast to suggest malignancy. There has been no suspicious interval change. IMPRESSION: 1. No mammographic evidence of malignancy. 2. Recommend routine screening mammography in one year. BI-RADS Category 1: Negative Reviewed, dictated and finalized at location B.
== END 2022-01-03 11:34 | disposition home or self-care (01) ==
LOC: CHSIMG 11:34
PROVIDERS: PCP Nurse Practitioner Family; Visit Provider Nurse Practitioner Family
DX: Z12.31 Encounter for screening mammogram for malignant neoplasm of breast (principal)
CPT/HCPCS: 77063; 77067

== ENCOUNTER 2022-01-05 11:22 | Outpatient (CLI) | payer MEDICARE, SELFPAY ==
--- NOTE | ~2022-01-05 | MR_ITS ---
EXAMINATION: MRA brain wo con DATE: 01/05/2022 12:27 INDICATION: Stroke. TECHNIQUE: Magnetic resonance angiography (MRA) of the brain was performed without intravenous contra st. COMPARISON: Head CT 11/08/2021, brain MRI 11/10/2021 FINDINGS: There is a chronic infarct involving right temporal and parietal lobes and right insula. The ventricl es are normal in size. Left vertebral artery is dominant. There is no significant stenosis of basilar artery or the posterior cerebral arteries. The posterior communicating arteries are normal. There is no significant stenosis of the intracranial internal carotid arteries or anterior or middle cerebral arteries. There is no aneurysm. Anterior communicating artery is normal. IMPRESSION: 1. No aneurysm or significant intracranial arterial stenosis. 2. Chronic infarct involving the right temporal and parietal lobes and right insula. Reviewed, dictated and finalized at location A. IMPRESSION: 1. No aneurysm or significant intracranial arterial stenosis. 2. Chronic infarct involving the right temporal and parietal lobes and right in sula.
== END 2022-01-05 11:23 | disposition home or self-care (01) ==
LOC: CHSIMG 11:25
PROVIDERS: PCP Nurse Practitioner Family; Visit Provider Student in an Organized Health Care Education/Training Program
DX: I63.9 Cerebral infarction, unspecified (principal)
CPT/HCPCS: 70544

== ENCOUNTER 2022-01-09 12:09 | Outpatient (CLI) | payer MEDICARE, SELFPAY ==
--- NOTE | ~2022-01-09 | US_ITS ---
EXAMINATION: US carotid duplex BI DATE: 01/09/2022 13:09 INDICATION: Carotid atherosclerosis and stenosis. Cerebral infarction. TECHNIQUE: Grayscale, color Doppler, and pulsed Doppler images of the cervical carotid arteries were obtained. The degree of vessel stenosis is placed in one of the following categories: normal, <50%, 5 0-69%, >=70% but less than near-occlusion, near-occlusion, or total occlusion. Note that percent sten osis relative to normal distal artery lumen diameter is indirectly measured from velocity measurement s as described by Andrés, et al. Radiology 2003; [id number]:[id number]. COMPARISON: None. FINDINGS: RIGHT: The right common carotid artery (CCA) peak systolic velocity (PSV) is 71 cm/s. The right internal car otid artery (ICA) PSV is 80 cm/s. The right ICA end-diastolic velocity (EDV) is 15 cm/s. The right IC A/CCA PSV ratio is 1.1. Grayscale and color Doppler images yield an estimate of <50% diameter reducti on from plaque in the ICA. The external carotid artery (ECA) PSV is 98 cm/s. There is antegrade flow in the right vertebral artery. LEFT: The left CCA PSV is 82 cm/s. The left ICA PSV is 105 cm/s. The left ICA EDV is 17 cm/s. The left ICA/ CCA PSV ratio is 1.3. Grayscale and color Doppler images yield an estimate of <50% diameter reduction from plaque in the ICA. The ECA PSV is 97 cm/s. There is antegrade flow in the left vertebral artery . IMPRESSION: 1. <50% stenosis in the right internal carotid artery. 2. <50% stenosis in the left internal carotid artery. Reviewed, dictated and finalized at location B.
== END 2022-01-09 12:10 | disposition home or self-care (01) ==
LOC: CHSIMG 12:11
PROVIDERS: PCP Nurse Practitioner Family; Visit Provider Student in an Organized Health Care Education/Training Program
DX: I63.9 Cerebral infarction, unspecified (principal)
CPT/HCPCS: 93880

== ENCOUNTER 2022-01-18 14:23 | Outpatient (CLI) | payer MEDICARE, SELFPAY ==
--- NOTE | 2022-01-18 14:29 | ECHO_ITS ---
Patient Info Name: Brenda Molina Age: 76 years : 1945 Gender: Female Ht: 60 in Wt: 120 lbs BSA: 1.53 m2 HR: 63 bpm BP: 116 / 67 mmHg Technical Quality: Good Exam Date: 01/18/2022 2:18 PM Exam Location: [facility] Patient Status: Outpatient Admit Date: 01/18/2022 Staff Ordering Physician: Janice Hurtado MD Clutch Specialist: Hermann Dalal RDCS, RT Attending Provider: Janice Hurtado MD Exam Type: CA echo doppler color flow Study Info Indications I63.219 - Cerebral infarction due to unspecified occlusion or stenosis of unspecified vertebral arteries Complete two-dimensional, color flow and Doppler transthoracic echocardiogram is performed. Strain analysis performed. Summary 1. Complete two-dimensional, color flow and Doppler transthoracic echocardiogram is performed. 2. Left ventricular chamber dimension is normal. 3. Left ventricular systolic function is normal, estimated at 60-65%. 4. The left ventricular diastolic function is grade I diastolic dysfunction. 5. E/e' 8 is minimally elevated. 6. Global longitudinal strain is normal at -22.3%. 7. There is mild tricuspid valve regurgitation. 8. No pulmonary hypertension, estimated pulmonary arterial systolic pressure is 34 mmHg. Left Ventricle E/e' 8 is minimally elevated. Global longitudinal strain is normal at -22.3%. Left ventricular chamber dimension is normal. Left ventricular systolic function is normal, estimated at 60-65%. The left ventricular diastolic function is grade I diastolic dysfunction. Right Ventricle Right ventricular systolic function is normal and with normal TAPSE 2.2 cm. Right ventricular chamber dimension is normal. Left Atria Left atrial chamber dimension is normal. Right Atria Right atrial chamber dimension is normal. Aortic Valve The aortic valve is trileaflet. There is no aortic valve stenosis. There is no aortic valve regurgitation. Pulmonic Valve There is no pulmonic regurgitation. Mitral Valve There is no mitral valve stenosis. There is mild mitral valve regurgitation. Tricuspid Valve There is mild tricuspid valve regurgitation. No pulmonary hypertension, estimated pulmonary arterial systolic pressure is 34 mmHg. Pericardium/Pleural There is no pericardial effusion. Inferior Vena Cava Normal inferior vena cava with >50% collapse upon inspiration consistent with normal right atrial pressure, 5 mmHg. Aorta The aortic root size at the sinus of Valsalva is normal. Left Ventricular Outflow Tract Name Value Normal LVOT 2D LVOT Diameter 1.9 cm LVOT Doppler LVOT Peak Velocity 124 cm/s LVOT Peak Gradient 6 mmHg LVOT Mean Gradient 3 mmHg LVOT VTI 29 cm LVOT VTI/AV VTI Ratio 0.9 LVOT Stroke Volume 83 ml Mitral Valve Name Value Normal MV
--- NOTE | 2022-01-18 15:16 | PCCARD ---
Pt refused IV access. No bubble study administered. Rudolph
== END 2022-01-18 14:24 | disposition home or self-care (01) ==
LOC: CHSIMG 14:25
PROVIDERS: PCP Nurse Practitioner Family; Visit Provider Student in an Organized Health Care Education/Training Program
DX: I63.9 Cerebral infarction, unspecified (principal)
CPT/HCPCS: 93306

== ENCOUNTER 2022-03-12 13:40 | Outpatient (CLI) | payer MEDICARE, SELFPAY ==
[2022-03-12 14:01] LABS: Add Urine Microscopic? YES; Appearance Urine Clear (Clear); Bilirubin Urine Negative (Negative); Blood Urine Negative (Negative); Color Urine Light Yellow (Yellow); Glucose Urine UA 1+ (Negative); Ketones Urine Negative (Negative); Leukocyte Esterase Ur Trace (Negative); Nitrate Urine Negative (Negative); Protein Urine Negative (Negative); Urobilinogen Urine 0.2 mg/dL (0.2-1.0)
[2022-03-12 14:02] LABS: Basophils Absolute Auto 0.08 K/mm3 (0.00-0.10); Eosinophils Absolute Auto 0.07 K/mm3 (0.02-0.50); Eosinophils Percent Auto 0.9 % (1.0-6.0); Hematocrit 30.6 % (35.0-42.0); Hemoglobin 10.3 g/dL (11.7-13.8); Immature Granulocyte Absolute 0.21 K/mm3 (0.00-0.00); Immature Granulocyte Percent A 2.7 % (0.0-0.0); Lymphocytes Absolute Auto 1.41 K/mm3 (1.10-4.50); Lymphocytes Percent Auto 17.9 % (18.0-42.0); Mean Corpuscular HGB Conc 33.7 g/dL (32.0-36.0); Mean Corpuscular Volume 104.1 fL (78.0-102.0); Monocytes Absolute Auto 0.31 K/mm3 (0.10-0.90); Monocytes Percent Auto 3.9 % (2.0-11.0); Neutrophils Absolute Auto 5.8 K/mm3 (1.7-7.2); Neutrophils Percent Auto 73.6 % (50.0-70.0); Platelet Count Result 252 K/mm3 (150-420); Red Blood Count 2.94 M/mm3 (4.20-5.40); Red Cell Distribution Width 15.6 % (11.6-14.4); White Blood Count 7.9 K/mm3 (4.8-10.8)
[2022-03-12 14:08] LABS: Bacteria Urine Trace /hpf; RBC Urine None seen /hpf (0-2); Squamous Epithelial Cell Urine Few /hpf (Few); WBC Urine None seen /hpf (0-3)
[2022-03-12 14:09] LABS: Creatinine Urine 38.39 mg/dL (40-278); MALB Creatinine Ratio 33.8 mg/g (0-30); Microalbumin Urine Random < 13.0 mg/L
[2022-03-12 14:14] LABS: Total Protein Urine Random 7.8 mg/dL (0.0-11.9)
[2022-03-12 14:17] LABS: Hemoglobin A1C 7.7 % (<5.7)
[2022-03-12 14:50] LABS: Alanine Aminotransferase 24 U/L (14-59); Albumin Level 3.6 g/dL (3.4-5.0); Alkaline Phosphatase 112 U/L (46-116); Anion Gap 12 mmol/L (8-16); Aspartate Amino Transferase 11 U/L (15-37); Bilirubin,Total 0.5 mg/dL (0.00-1.00); Blood Urea Nitrogen 80 mg/dL (7-18); Calcium 8.5 mg/dL (8.5-10.1); Carbon Dioxide 29 mmol/L (21-32); Chloride 98 mmol/L (98-108); Cholesterol 173 mg/dL (0-200); Estimated Glomerular Filt Rate 16; Free T4 Free Thyroxine 1.24 ng/dL (0.76-1.46); Glucose 236 mg/dL (70-99); HDL Direct 41 mg/dL (40-60); LDL Cholesterol Calculated 65 mg/dL (<130); Osmolality Calculated 320 mOsm/kg (285-295); Phosphorus 3.9 mg/dL (2.6-4.7); Sodium 139 mmol/L (136-145); Thyroid Stimulating Hormone 0.11 uIU/mL (0.36-3.74); Total Protein 6.3 g/dL (6.4-8.2); Triglycerides 335 mg/dL (0-150)
== END 2022-03-12 13:41 | disposition home or self-care (01) ==
LOC: CHSLAB 13:43
PROVIDERS: Visit Provider Nurse Practitioner Family
DX: E03.9 Hypothyroidism, unspecified (principal); E11.9 Type 2 diabetes mellitus without complications; I12.9 Hypertensive chronic kidney disease with stage 1 through stage 4 chronic kidney disease, or unspecified chronic kidney disease; N18.32 Chronic kidney disease, stage 3b; R80.9 Proteinuria, unspecified; Z13.6 Encounter for screening for cardiovascular disorders; E78.00 Pure hypercholesterolemia, unspecified
CPT/HCPCS: 36415; 80053; 80061; 81001; 82043; 82570; 83036; 84100; 84156; 84439; 84443; 85025

== ENCOUNTER 2022-04-06 11:32 | Outpatient (CLI) | payer MEDICARE, SELFPAY ==
[2022-04-06 11:47] LABS: Basophils Absolute Auto 0.07 K/mm3 (0.00-0.10); Basophils Percent Auto 0.8 % (0.0-1.0); Eosinophils Percent Auto 1.1 % (1.0-6.0); Hematocrit 35.5 % (35.0-42.0); Immature Granulocyte Absolute 0.23 K/mm3 (0.00-0.00); Immature Granulocyte Percent A 2.5 % (0.0-0.0); Lymphocytes Percent Auto 19.8 % (18.0-42.0); Mean Corpuscular HGB Conc 33.8 g/dL (32.0-36.0); Mean Corpuscular Volume 103.5 fL (78.0-102.0); Mean Platelet Volume 9.2 fl (9.2-11.8); Monocytes Absolute Auto 0.95 K/mm3 (0.10-0.90); Monocytes Percent Auto 10.5 % (2.0-11.0); Neutrophils Absolute Auto 5.9 K/mm3 (1.7-7.2); Neutrophils Percent Auto 65.3 % (50.0-70.0); Platelet Count Result 262 K/mm3 (150-420); Red Blood Count 3.43 M/mm3 (4.20-5.40); Red Cell Distribution Width 15.1 % (11.6-14.4); White Blood Count 9.1 K/mm3 (4.8-10.8)
[2022-04-06 11:49] LABS: Add Urine Microscopic? YES; Appearance Urine Clear (Clear); Bilirubin Urine Negative (Negative); Blood Urine Negative (Negative); Color Urine Light Yellow (Yellow); Glucose Urine UA Negative (Negative); Ketones Urine Negative (Negative); Leukocyte Esterase Ur Trace (Negative); Nitrate Urine Negative (Negative); Protein Urine Negative (Negative); Specific Grav Ur 1.015 (1.010-1.020); Urobilinogen Urine 0.2 mg/dL (0.2-1.0); pH Urine 5.5 (5.0-8.0)
[2022-04-06 11:55] LABS: Bacteria Urine Trace /hpf; RBC Urine None seen /hpf (0-2); Squamous Epithelial Cell Urine Few /hpf (Few); WBC Urine 0-3 /hpf (0-3)
[2022-04-06 12:43] LABS: Albumin Level 4.1 g/dL (3.4-5.0); Anion Gap 8 mmol/L (8-16); Blood Urea Nitrogen 43 mg/dL (7-18); Calcium 9.4 mg/dL (8.5-10.1); Carbon Dioxide 29 mmol/L (21-32); Chloride 100 mmol/L (98-108); Estimated Glomerular Filt Rate 28; Glucose 111 mg/dL (70-99); Osmolality Calculated 295 mOsm/kg (285-295); Phosphorus 3.9 mg/dL (2.6-4.7); Potassium 4.2 mmol/L (3.5-5.1); Sodium 137 mmol/L (136-145)
== END 2022-04-06 11:33 | disposition home or self-care (01) ==
LOC: CHSLAB 11:37
PROVIDERS: PCP Nurse Practitioner Family
DX: N18.30 Chronic kidney disease, stage 3 unspecified (principal)
CPT/HCPCS: 36415; 80069; 81001; 85025

== ENCOUNTER 2022-07-12 09:28 | Outpatient (CLI) | payer MEDICARE, SELFPAY ==
[2022-07-12 11:43] LABS: Hemoglobin A1C 7.6 % (<5.7)
[2022-07-12 11:45] LABS: Albumin Level 3.7 g/dL (3.4-5.0); Anion Gap 8 mmol/L (8-16); Blood Urea Nitrogen 39 mg/dL (7-18); Calcium 9.1 mg/dL (8.5-10.1); Carbon Dioxide 32 mmol/L (21-32); Chloride 103 mmol/L (98-108); Estimated Glomerular Filt Rate 25; Glucose 134 mg/dL (70-99); Osmolality Calculated 307 mOsm/kg (285-295); Phosphorus 4.6 mg/dL (2.6-4.7); Potassium 4.2 mmol/L (3.5-5.1); Sodium 143 mmol/L (136-145)
[2022-07-16 19:01] LABS: Parathyroid Intact 359 pg/mL (14-64)
== END 2022-07-12 09:29 | disposition home or self-care (01) ==
LOC: CHSLAB 09:30
PROVIDERS: PCP Nurse Practitioner Family; Visit Provider Internal Medicine Nephrology
DX: E11.9 Type 2 diabetes mellitus without complications (principal); N18.30 Chronic kidney disease, stage 3 unspecified
CPT/HCPCS: 36415; 80069; 83036; 83970

== ENCOUNTER 2022-07-30 08:59 | Outpatient (CLI) | payer MEDICARE, SELFPAY ==
[2022-07-30 10:24] LABS: Free T4 Free Thyroxine 1.18 ng/dL (0.76-1.46); Thyroid Stimulating Hormone 0.22 uIU/mL (0.36-3.74)
== END 2022-07-30 09:00 | disposition home or self-care (01) ==
LOC: CHSLAB 09:00
PROVIDERS: PCP Nurse Practitioner Family; Visit Provider Nurse Practitioner Family
DX: E03.9 Hypothyroidism, unspecified (principal)
CPT/HCPCS: 36415; 84439; 84443

== ENCOUNTER 2022-08-02 00:48 | Day surgery (SDC) | payer MEDICARE, SELFPAY ==
[2022-06-28 14:47] VITALS: BMI 24.4
--- NOTE | 2022-07-25 12:41 | PC.NURSE ---
Spoke with sister Sapna as patient is [place]. Sapna is poor historian regarding patient's medication and health history. Informed her that patient will need to take thyroid medication before coming in. Went over new arrival dates/times and NPO instiructions. Sapna verbalizes understanding. States there are no new updates regarding medical history.
[2022-08-02 10:14] VITALS: BP 159/67; PULSE 85; RESP 20; TEMP 36.3; O2SAT 99; BMI 24.3
--- NOTE | 2022-08-02 10:16 | WPDANESEPPF ---
Anes - Initial Pre Proc Eval Procedure: Operation Date: 08/02/22 11:30 Proposed Procedures p Esophagogastroduodenoscopy - Pancho Howard MD Date/Time: 08/02/22 10:16 Surgeon: Pancho Howard MD Pre Op Diagnosis: dysphagia, gastritis, celiac disease Patient Data Age: 77 Gender: F Height: 1.5 m Weight: 54.7 kg Last Vital Signs Temp 97.4 F L 08/02/22 10:14 Pulse 85 08/02/22 10:14 Resp 20 08/02/22 10:14 BP 159/67 H 08/02/22 10:14 Pulse Ox 99 08/02/22 10:14 O2 Del Method Room Air 08/02/22 10:14 Allergies Allergy/AdvReac Type Severity Reaction Status Date / Time gluten Allergy Diarrhea Verified 08/02/22 10:12 Home Medications Medication Instructions Recorded Confirmed Type aspirin 81 mg tablet,delayed 81 mg PO DAILY 10/19/19 08/02/22 History release (Adult Aspirin Regimen) cholecalciferol (vitamin D3) 25 25 mcg PO DAILY 10/19/19 08/02/22 History mcg (1,000 unit) capsule allopurinol 100 mg tablet 100 mg PO DAILY 08/14/21 08/02/22 History furosemide 40 mg tablet 40 mg PO DAILY #90 tabs 06/24/22 08/02/22 Rx atorvastatin 20 mg tablet 20 mg PO DAILY 06/28/22 08/02/22 History budesonide 3 mg 3 mg PO DAILY 06/28/22 08/02/22 History capsule,delayed,extended release omeprazole 20 mg capsule,delayed 20 mg PO DAILY 06/28/22 08/02/22 History release potassium chloride 20 mEq 20 meq PO DAILY 06/28/22 08/02/22 History tablet,extended release(part/cryst) diphenoxylate-atropine 2.5 1 tablet PO TID PRN diarrhea #30 07/10/22 08/02/22 Rx mg-0.025 mg tablet (Lomotil) tabs guaifenesin 200 mg tablet 200 mg PO TID PRN cough #20 tabs 07/12/22 08/02/22 Rx ipratropium bromide 21 mcg (0.03 2 spray intranasal BID #30 mL 07/12/22 08/02/22 Rx %) nasal spray levothyroxine 50 mcg capsule 50 mcg PO DAILY 8 weeks #56 caps 08/01/22 08/02/22 Rx Patient hx anesthesia problems: none Family hx anesthesia problems: none Results Review: All pre-operative results and documents have been reviewed as part of the pre-operative evaluation. [facility] Past Medical History Medical History Adenomatous colon polyp Celiac disease Celiac disease Chronic diarrhea Diarrhea Dysphagia Exposure to COVID-19 virus Gastritis with intestinal metaplasia of stomach HTN (hypertension) Hypercholesteremia Hypothyroidism Microscopic colitis Osteoporosis Rash of groin Type 2 diabetes mellitus Weakness Weight loss Surgical History Surgical History History of Irais fundoplication Hx of esophageal hernia repair Family History Family History Mother Type 2 diabetes mellitus Father Acute myocardial infarction Social History Social History Smoking status: Never smoker Tobacco type: cigarettes Alcohol intake: never Substance use: never Substance use type: does not use Lack of Transportation: No Lack of Food: Never True Current Housing: I Have Housing Concerned About Future Housing: No Difficulty Paying Gas/Electric Bills: YES Difficulty Paying for Meds: No Currently Unemployed: No Education: Grade School Difficulty w/ Childcare or Family Care: No Living arrangements: with family Additional occupation/education comments: Lives in her home. Boyfriend in the house Gender identity (if verbalized by the patient): Female Spiritual care concerns: No Anes - Eval Final PreProcedure Day of Procedure 08/02/22 10:16 Patient weight: normal Heart: regular rate and rhythm Lungs: clear to auscultation Airway: Mallampati scale class II Neurological: alert and oriented Last oral intake: >/= 8 hours ASA classification: III Emergent: no Anesthetic plan: proceed Anesthesia type and monitoring: general GIVS and standard monitoring Results Review
[2022-08-02] MEDS: LACTATED RINGERS 1,000 ML 150 ML IV CONT (10:26)
--- NOTE | 2022-08-02 10:29 | PM.HPGS ---
History of Present Illness History of Present Illness Consent: Risks, benefits, and alternatives have been discussed and questions answered. Patient agrees to proceed with procedure. Chief complaint: dysphagia, gastritis, celiac disease Narrative: Brenda Molina is a 77 year old female with history of celiac on gluten free diet but few days ago had accident with wrong food , also gastritis on ppi (had metaplasia), sometimes dysphagia, remote history of hiatal hernia repair. Review of Systems Constitutional: Constitutional: Denies headache(s) and Denies weakness Eyes: Eyes: Denies blurry vision ENT: Reports Normal hearing present, Denies headache(s) and Denies neck pain Cardiovascular: Cardiovascular: Denies chest pain and Denies dyspnea Respiratory: Respiratory: Denies dyspnea Gastrointestinal: Gastrointestinal: Reports no additional gastrointestinal complaints Genitourinary: Genitourinary: Denies dysuria Musculoskeletal: Musculoskeletal: Denies neck pain Integumentary/Breasts: Skin/Breast: Denies dry skin Neurologic: Reports Normal hearing present, Denies headache(s) and Denies weakness Psychiatric: Psychiatric: Denies anxiety Endocrine: Endocrine: Denies change in body appearance Hematologic/Lymphatic: Hematologic/Lymphatic: Denies easy bleeding Allergic/Immunologic: Allergic/Immunologic: Denies urticaria PMFSH Past Medical History Medical History Adenomatous colon polyp Celiac disease Celiac disease Chronic diarrhea Diarrhea Dysphagia Exposure to COVID-19 virus Gastritis with intestinal metaplasia of stomach HTN (hypertension) Hypercholesteremia Hypothyroidism Microscopic colitis Osteoporosis Rash of groin Type 2 diabetes mellitus Weakness Weight loss Surgical History Surgical History History of Irais fundoplication Hx of esophageal hernia repair Family History Family History Mother Type 2 diabetes mellitus Father Acute myocardial infarction Social History Social History Smoking status: Never smoker Tobacco type: cigarettes Alcohol intake: never Substance use: never Substance use type: does not use Lack of Transportation: No Lack of Food: Never True Current Housing: I Have Housing Concerned About Future Housing: No Difficulty Paying Gas/Electric Bills: YES Difficulty Paying for Meds: No Currently Unemployed: No Education: Grade School Difficulty w/ Childcare or Family Care: No Living arrangements: with family Additional occupation/education comments: Lives in her home. Boyfriend in the house Gender identity (if verbalized by the patient): Female Spiritual care concerns: No Meds Home Medications and Allergies Home Medications Medication Instructions Recorded Confirmed Type aspirin 81 mg tablet,delayed 81 mg PO DAILY 10/19/19 08/02/22 History release (Adult Aspirin Regimen) cholecalciferol (vitamin D3) 25 25 mcg PO DAILY 10/19/19 08/02/22 History mcg (1,000 unit) capsule allopurinol 100 mg tablet 100 mg PO DAILY 08/14/21 08/02/22 History furosemide 40 mg tablet 40 mg PO DAILY #90 tabs 06/24/22 08/02/22 Rx atorvastatin 20 mg tablet 20 mg PO DAILY 06/28/22 08/02/22 History budesonide 3 mg 3 mg PO DAILY 06/28/22 08/02/22 History capsule,delayed,extended release omeprazole 20 mg capsule,delayed 20 mg PO DAILY 06/28/22 08/02/22 History release potassium chloride 20 mEq 20 meq PO DAILY 06/28/22 08/02/22 History tablet,extended release(part/cryst) diphenoxylate-atropine 2.5 1 tablet PO TID PRN diarrhea #30 07/10/22 08/02/22 Rx mg-0.025 mg tablet (Lomotil) tabs guaifenesin 200 mg tablet 200 mg PO TID PRN cough #20 tabs 07/12/22 08/02/22 Rx ipratropium bromide 21 mcg (0.03 2 spray intranasal BID #30 mL 07/12/22
[2022-08-02 10:41] VITALS: BP 113/60; PULSE 88; RESP 26; O2SAT 100
[2022-08-02 10:51] VITALS: BP 123/70; PULSE 73; RESP 22; O2SAT 100
[2022-08-02 11:01] VITALS: BP 133/70; PULSE 68; RESP 17; O2SAT 100
== END 2022-08-02 11:11 | disposition home or self-care (01) ==
PROVIDERS: PCP Nurse Practitioner Family; Visit Provider Internal Medicine Gastroenterology
PROC: 0DJ08ZZ Inspection of Upper Intestinal Tract, Via Natural or Artificial Opening Endoscopic (ICD-10-PCS; CPT 43235; principal; 2022-08-02 11:30)
DX: K29.50 Unspecified chronic gastritis without bleeding (principal); K90.0 Celiac disease; I10 Essential (primary) hypertension; E78.00 Pure hypercholesterolemia, unspecified; E03.9 Hypothyroidism, unspecified; M81.0 Age-related osteoporosis without current pathological fracture; E11.9 Type 2 diabetes mellitus without complications; Z79.82 Long term (current) use of aspirin
CPT/HCPCS: 43239; 88305; J2704; J7120

== ENCOUNTER 2022-11-01 10:18 | Outpatient (CLI) | payer MEDICARE, SELFPAY ==
[2022-11-01 10:51] LABS: Hematocrit 37.8 % (35.0-42.0); Hemoglobin 12.8 g/dL (11.7-13.8); Mean Corpuscular HGB Conc 33.9 g/dL (32.0-36.0); Mean Corpuscular Hemoglobin 34.5 pg (27.0-31.0); Mean Corpuscular Volume 101.9 fL (78.0-102.0); Mean Platelet Volume 9.4 fl (9.2-11.8); Platelet Count Result 286 K/mm3 (150-420); Red Blood Count 3.71 M/mm3 (4.20-5.40); Red Cell Distribution Width 13.9 % (11.6-14.4); White Blood Count 9.7 K/mm3 (4.8-10.8)
[2022-11-01 11:07] LABS: Band Neutrophils Percent 0 % (0-6); Basophils Percent Manual 0 % (0-1); Eosinophils Absolute Manual 0.09 K/mm3 (0.02-0.5); Eosinophils Percent Manual 1 % (1-6); Lymphocytes Percent Manual 31 % (18-44); Monocytes Absolute Manual 0.38 K/mm3 (0.1-0.90); Monocytes Percent Manual 4 % (3-9); Myelocytes Percent 2 %; Neutrophils Absolute Manual 6.01 K/mm3 (1.7-7.2); Neutrophils Percent Manual 62 % (46-73); Total Cells Counted 100
[2022-11-01 11:08] LABS: Platelet Estimate Adequate (Adequate)
[2022-11-01 11:18] LABS: Albumin Level 4.1 g/dL (3.4-5.0); Anion Gap 11 mmol/L (8-16); Blood Urea Nitrogen 33 mg/dL (7-18); Calcium 9.6 mg/dL (8.5-10.1); Carbon Dioxide 30 mmol/L (21-32); Chloride 102 mmol/L (98-108); Estimated Glomerular Filt Rate 30; Glucose 144 mg/dL (70-99); Osmolality Calculated 306 mOsm/kg (285-295); Phosphorus 4.4 mg/dL (2.6-4.7); Potassium 4.4 mmol/L (3.5-5.1); Sodium 143 mmol/L (136-145); Thyroid Stimulating Hormone 9.47 uIU/mL (0.36-3.74)
[2022-11-05 16:03] LABS: T4 Thyroxine 6.9 mcg/dL (5.9-10.3)
[2022-11-06 20:26] LABS: Parathyroid Intact 183 pg/mL (14-64)
== END 2022-11-01 10:19 | disposition home or self-care (01) ==
LOC: CHSLAB 10:21
PROVIDERS: PCP Internal Medicine Nephrology; Visit Provider Nurse Practitioner Family
DX: E03.9 Hypothyroidism, unspecified (principal)
CPT/HCPCS: 36415; 80069; 83970; 84436; 84443; 85025

== ENCOUNTER 2022-11-26 10:41 | Outpatient (CLI) | payer MEDICARE, SELFPAY ==
--- NOTE | ~2022-11-26 | DEXA_ITS ---
Bone Density Report Name: TAB RIBEIRO Age: 77 Sex: Female Ethnicity: White Date of : 1945 Indication: hyperparathyroidism; height loss; postmenopausal Referring Provider: RADHA MACARIO Study: Bone densitometry was performed. Exam Date: November 26, 2022 Accession number: [id number] Bone Density: Region BMD T-score Z-score Classification AP Spine(L2, L3, L4) 0.693 -3.5 -1.0 Osteoporosis Femoral Neck (Left) 0.430 -3.8 -1.7 Osteoporosis Total Hip (Left) 0.591 -2.9 -1.1 Osteoporosis Femoral Neck (Right) 0.417 -3.9 -1.8 Osteoporosis Total Hip (Right) 0.627 -2.6 -0.8 Osteoporosis Femoral Neck Mean 0.424 -3.8 -1.7 Osteoporosis Total Hip Mean 0.609 -2.7 -0.9 Osteoporosis World Health Organization criteria for BMD impression classify patients as: Normal (T-score at or above -1.0), Osteopenia (T-score between -1.0 and -2.5), or Osteoporosis (T-score at or below -2.5). 10-year Fracture Risk: FRAX not reported because: Some T-score for Spine Total or Hip Total or Femoral Neck at or below -2.5 Clinical Information Provided by Patient: Has used the following medications: Vitamin D, Calcium Has the following medical conditions: Hyperparathyroidism Patient maximum height was 60 Menopause Age: 52 No regular weight bearing exercise Onset of menses at age 16 Number of children 0 Impression: The patient has osteoporosis, based on the Right Femoral Neck T-score. Discussion: INCREASED RISK OF FRACTURE. BONE DENSITY IS UNDESIRABLY LOW AT ONE OR MORE SKELETAL SITES, CONSISTENT WITH POSTMENOPAUSAL OSTEOPOROSIS. This patient's lowest T-score meets the World Health Organization's (WHO) criteria for osteoporosis at one or more sites (T-score -2.5 or below). In untreated patients, the risk of osteoporotic fracture increases approximately two-fold for each 1.0 SD decrease in T-score. Low bone density is not the only risk factor for fracture; also consider factors such as patient's age, frailty or poor health, risk of falling, risk of injury, previous osteoporotic fracture, family history of osteoporosis, cigarette smoking, low body weight, etc. Not everyone with low bone mineral density has osteoporosis; osteomalacia and other metabolic bone disorders should also be considered. Patients who have osteoporosis should be evaluated for specific diseases and conditions (secondary causes) that may cause or contribute to bone loss. The [place] Association [employer] Endocrinologists (AACE) and National Osteoporosis Foundation (NOF) recommend pharmacologic intervention for all postmenopausal women whose T-score is in this range. The patient should follow a healthful lifestyle (good nutrition with adequate calcium and vitamin D, and appropriate weight-bearing exercise). Follow-Up: Consider a repeat BMD and Ve
== END 2022-11-26 10:42 | disposition home or self-care (01) ==
LOC: CHSIMG 10:42
PROVIDERS: PCP Nurse Practitioner Family; Visit Provider Nurse Practitioner Family
DX: Z78.0 Asymptomatic menopausal state (principal); M81.0 Age-related osteoporosis without current pathological fracture
CPT/HCPCS: 77080

== ENCOUNTER 2022-12-24 15:22 | Outpatient (CLI) | payer MEDICARE, SELFPAY ==
[2022-12-24 15:43] LABS: Basophils Absolute Auto 0.09 K/mm3 (0.00-0.10); Basophils Percent Auto 1.4 % (0.0-1.0); Eosinophils Absolute Auto 0.11 K/mm3 (0.02-0.50); Eosinophils Percent Auto 1.7 % (1.0-6.0); Hematocrit 36.5 % (35.0-42.0); Hemoglobin 12.3 g/dL (11.7-13.8); Immature Granulocyte Absolute 0.15 K/mm3 (0.00-0.00); Immature Granulocyte Percent A 2.4 % (0.0-0.0); Lymphocytes Absolute Auto 1.32 K/mm3 (1.10-4.50); Lymphocytes Percent Auto 20.9 % (18.0-42.0); Mean Corpuscular HGB Conc 33.7 g/dL (32.0-36.0); Mean Corpuscular Hemoglobin 35.3 pg (27.0-31.0); Mean Corpuscular Volume 104.9 fL (78.0-102.0); Mean Platelet Volume 9.1 fl (9.2-11.8); Monocytes Absolute Auto 0.59 K/mm3 (0.10-0.90); Monocytes Percent Auto 9.3 % (2.0-11.0); Neutrophils Absolute Auto 4.1 K/mm3 (1.7-7.2); Neutrophils Percent Auto 64.3 % (50.0-70.0); Platelet Count Result 303 K/mm3 (150-420); Red Blood Count 3.48 M/mm3 (4.20-5.40); Red Cell Distribution Width 14.9 % (11.6-14.4); White Blood Count 6.3 K/mm3 (4.8-10.8)
[2022-12-24 16:05] LABS: Alanine Aminotransferase 21 U/L (14-59); Albumin Level 3.8 g/dL (3.4-5.0); Alkaline Phosphatase 175 U/L (46-116); Anion Gap 9 mmol/L (8-16); Aspartate Amino Transferase 13 U/L (15-37); Bilirubin,Total 0.6 mg/dL (0.00-1.00); Blood Urea Nitrogen 21 mg/dL (7-18); Calcium 9.9 mg/dL (8.5-10.1); Carbon Dioxide 32 mmol/L (21-32); Chloride 102 mmol/L (98-108); Estimated Glomerular Filt Rate 31; Free T4 Free Thyroxine 1.48 ng/dL (0.76-1.46); Glucose 134 mg/dL (70-99); Iron 73 ug/dL (50-170); Magnesium 1.6 mg/dL (1.8-2.4); Osmolality Calculated 301 mOsm/kg (285-295); Potassium 4.1 mmol/L (3.5-5.1); Sodium 143 mmol/L (136-145); Thyroid Stimulating Hormone 0.43 uIU/mL (0.36-3.74); Total Protein 6.6 g/dL (6.4-8.2)
[2022-12-28 14:34] LABS: Vitamin D 25 Hydroxy 42 ng/mL (30-100)
== END 2022-12-24 15:23 | disposition home or self-care (01) ==
LOC: CHSLAB 15:23
PROVIDERS: PCP Nurse Practitioner Family; Visit Provider Nurse Practitioner Family
DX: E03.9 Hypothyroidism, unspecified (principal); K90.0 Celiac disease; R53.1 Weakness; Z79.899 Other long term (current) drug therapy
CPT/HCPCS: 36415; 80053; 82306; 83540; 83735; 84439; 84443; 85025

== ENCOUNTER 2022-12-30 10:19 | Outpatient (CLI) | payer MEDICARE, SELFPAY ==
[2022-12-30 11:23] LABS: Magnesium 1.6 mg/dL (1.8-2.4)
[2022-12-30 11:24] LABS: Free T4 Free Thyroxine 1.56 ng/dL (0.76-1.46); Thyroid Stimulating Hormone 0.25 uIU/mL (0.36-3.74)
== END 2022-12-30 10:20 | disposition home or self-care (01) ==
LOC: CHSLAB 10:21
PROVIDERS: PCP Nurse Practitioner Family; Visit Provider Nurse Practitioner Family
DX: R53.1 Weakness (principal); E03.9 Hypothyroidism, unspecified
CPT/HCPCS: 36415; 83735; 84439; 84443

== ENCOUNTER 2023-01-06 12:39 | Outpatient (CLI) | payer MEDICARE, SELFPAY ==
--- NOTE | ~2023-01-06 | MM_ITS ---
EXAMINATION: MM screening roque BI w kelsea HISTORY: Screening mammogram TECHNIQUE: Craniocaudal and mediolateral oblique 3-D tomosynthesis images were obtained and synthetic 2-D images were generated. CAD analysis was submitted and interpreted. COMPARISON: 01/03/2022, 12/26/2020 bilateral screening mammogram examinations 12/19/2019 bilateral diagnostic mammogram and bilateral complete breast ultrasound examination, report ed negative 12/21/2019 bilateral screening mammogram BREAST PARENCHYMAL COMPOSITION: The breasts are heterogeneously dense, which may obscure small masses . FINDINGS: Stable fibroglandular asymmetry, more prominent on the left. There is no evidence of suspic ious mass, calcification, or architectural distortion to suggest malignancy in either breast. There h as been no suspicious interval change. IMPRESSION: 1. No mammographic evidence of malignancy. 2. Recommend routine screening mammography in one year. BI-RADS Category 1: Negative Reviewed, dictated and finalized at location A.
== END 2023-01-06 12:40 | disposition home or self-care (01) ==
LOC: CHSIMG 12:42
PROVIDERS: PCP Nurse Practitioner Family; Visit Provider Nurse Practitioner Family
DX: Z12.31 Encounter for screening mammogram for malignant neoplasm of breast (principal)
CPT/HCPCS: 77063; 77067

== ENCOUNTER 2023-01-28 10:49 | Outpatient (CLI) | payer MEDICARE, SELFPAY ==
[2023-01-28 11:16] LABS: Appearance Urine Clear (Clear); Bilirubin Urine Negative (Negative); Blood Urine Negative (Negative); Color Urine Yellow (Yellow); Glucose Urine UA Negative (Negative); Ketones Urine Negative (Negative); Leukocyte Esterase Ur Negative (Negative); Nitrate Urine Negative (Negative); Protein Urine Negative (Negative); Specific Grav Ur 1.015 (1.010-1.020); Urobilinogen Urine 0.2 mg/dL (0.2-1.0); pH Urine 5.5 (5.0-8.0)
[2023-01-28 11:17] LABS: Add Urine Microscopic? NO
[2023-01-28 11:24] LABS: Creatinine Urine 70.63 mg/dL (40-278); MALB Creatinine Ratio 19.6 mg/g (0-30); Microalbumin Urine Random 13.9 mg/L; Total Protein Urine Random 18.9 mg/dL (0.0-11.9)
[2023-01-28 11:43] LABS: Albumin Level 3.7 g/dL (3.4-5.0); Anion Gap 8 mmol/L (8-16); Blood Urea Nitrogen 33 mg/dL (7-18); Calcium 9.5 mg/dL (8.5-10.1); Carbon Dioxide 32 mmol/L (21-32); Chloride 101 mmol/L (98-108); Estimated Glomerular Filt Rate 34; Glucose 144 mg/dL (70-99); Osmolality Calculated 302 mOsm/kg (285-295); Phosphorus 5.7 mg/dL (2.6-4.7); Potassium 4.4 mmol/L (3.5-5.1); Sodium 141 mmol/L (136-145)
[2023-01-31 11:59] LABS: Vitamin D 25 Hydroxy 36 ng/mL (30-100)
[2023-02-01 19:02] LABS: Parathyroid Intact 332 pg/mL (14-64)
== END 2023-01-28 10:50 | disposition home or self-care (01) ==
LOC: CHSLAB 10:53
PROVIDERS: PCP Nurse Practitioner Family
DX: N18.30 Chronic kidney disease, stage 3 unspecified (principal)
CPT/HCPCS: 36415; 80069; 81003; 81050; 82043; 82306; 83970; 84156

== ENCOUNTER 2023-04-10 10:13 | Outpatient (CLI) | payer MEDICARE, SELFPAY ==
[2023-04-10 13:45] LABS: Thyroid Stimulating Hormone Reflex 0.43 u/IU/mL (0.36-3.74)
== END 2023-04-10 10:14 | disposition home or self-care (01) ==
LOC: CHSLAB 10:14
PROVIDERS: PCP Nurse Practitioner Family; Visit Provider Nurse Practitioner Family
DX: E03.9 Hypothyroidism, unspecified (principal)
CPT/HCPCS: 36415; 84443

== ENCOUNTER 2023-06-09 11:02 | Outpatient (CLI) | payer MEDICARE, SELFPAY ==
[2023-06-09 11:22] LABS: Basophils Absolute Auto 0.08 K/mm3 (0.00-0.10); Basophils Percent Auto 0.8 % (0.0-1.0); Eosinophils Absolute Auto 0.02 K/mm3 (0.02-0.50); Eosinophils Percent Auto 0.2 % (1.0-6.0); Hematocrit 34.9 % (35.0-42.0); Hemoglobin 11.8 g/dL (11.7-13.8); Immature Granulocyte Absolute 0.79 K/mm3 (0.00-0.00); Immature Granulocyte Percent A 7.6 % (0.0-0.0); Lymphocytes Absolute Auto 1.14 K/mm3 (1.10-4.50); Lymphocytes Percent Auto 10.9 % (18.0-42.0); Mean Corpuscular HGB Conc 33.8 g/dL (32.0-36.0); Mean Corpuscular Hemoglobin 35.4 pg (27.0-31.0); Mean Corpuscular Volume 104.8 fL (78.0-102.0); Mean Platelet Volume 8.7 fl (9.2-11.8); Monocytes Percent Auto 9.6 % (2.0-11.0); Neutrophils Absolute Auto 7.4 K/mm3 (1.7-7.2); Neutrophils Percent Auto 70.9 % (50.0-70.0); Platelet Count Result 297 K/mm3 (150-420); Red Blood Count 3.33 M/mm3 (4.20-5.40); Red Cell Distribution Width 14.6 % (11.6-14.4); White Blood Count 10.4 K/mm3 (4.8-10.8)
[2023-06-09 11:37] LABS: Creatinine Urine 84.65 mg/dL (40-278); Total Protein Urine Random 43.6 mg/dL (0.0-11.9)
[2023-06-09 11:38] LABS: Ur Ttl Prot Creatinine Ratio 0.52 mg/mg (0-0.20)
[2023-06-09 11:46] LABS: Hemoglobin A1C 7.8 % (<5.7)
[2023-06-09 12:26] LABS: Alanine Aminotransferase 68 U/L (14-59); Albumin Level 3.3 g/dL (3.4-5.0); Alkaline Phosphatase 208 U/L (46-116); Anion Gap 12 mmol/L (8-16); Aspartate Amino Transferase 22 U/L (15-37); Bilirubin,Total 0.5 mg/dL (0.00-1.00); Blood Urea Nitrogen 46 mg/dL (7-18); Carbon Dioxide 29 mmol/L (21-32); Chloride 100 mmol/L (98-108); Estimated Glomerular Filt Rate 24; Free T4 Free Thyroxine 1.54 ng/dL (0.76-1.46); Glucose 150 mg/dL (70-99); Osmolality Calculated 306 mOsm/kg (285-295); Phosphorus 5.2 mg/dL (2.6-4.7); Potassium 3.9 mmol/L (3.5-5.1); Sodium 141 mmol/L (136-145); Total Protein 6.7 g/dL (6.4-8.2)
[2023-06-14 14:12] LABS: Vitamin D 25 Hydroxy 47 ng/mL (30-100)
== END 2023-06-09 11:03 | disposition home or self-care (01) ==
LOC: CHSLAB 11:05
PROVIDERS: Nurse Practitioner Family; PCP Nurse Practitioner Family; Visit Provider Nurse Practitioner Family
DX: E03.9 Hypothyroidism, unspecified (principal); E11.9 Type 2 diabetes mellitus without complications; I10 Essential (primary) hypertension; Z79.899 Other long term (current) drug therapy
CPT/HCPCS: 36415; 80053; 82306; 82570; 83036; 84100; 84156; 84439; 84443; 85025

== ENCOUNTER 2023-08-14 08:28 | Outpatient (CLI) | payer MEDICARE, SELFPAY ==
[2023-08-14 08:48] LABS: Basophils Absolute Auto 0.07 K/mm3 (0.00-0.10); Basophils Percent Auto 0.8 % (0.0-1.0); Eosinophils Absolute Auto 0.08 K/mm3 (0.02-0.50); Hematocrit 34.9 % (35.0-42.0); Hemoglobin 11.4 g/dL (11.7-13.8); Immature Granulocyte Absolute 0.59 K/mm3 (0.00-0.00); Immature Granulocyte Percent A 7.1 % (0.0-0.0); Lymphocytes Absolute Auto 1.87 K/mm3 (1.10-4.50); Lymphocytes Percent Auto 22.5 % (18.0-42.0); Mean Corpuscular HGB Conc 32.7 g/dL (32-36); Mean Corpuscular Hemoglobin 34.5 pg (27.0-31.0); Mean Corpuscular Volume 105.8 fL (78.0-102.0); Mean Platelet Volume 8.7 fl (9.2-11.8); Monocytes Absolute Auto 0.74 K/mm3 (0.10-0.90); Monocytes Percent Auto 8.9 % (2.0-11.0); Neutrophils Absolute Auto 4.97 K/mm3 (1.70-7.20); Neutrophils Percent Auto 59.7 % (50.0-70.0); Platelet Count Result 235 K/mm3 (150-420); Red Cell Distribution Width 14.3 % (11.6-14.4); White Blood Count 8.3 K/mm3 (4.8-10.8)
[2023-08-14 09:12] LABS: Appearance Urine Sl Cloudy (Clear); Bilirubin Urine Negative (Negative); Blood Urine Negative (Negative); Color Urine Light Yellow (Yellow); Glucose Urine UA Negative (Negative); Ketones Urine Negative (Negative); Leukocyte Esterase Ur 2+ (Negative); Nitrate Urine Positive (Negative); Protein Urine Trace (Negative)
[2023-08-14 09:42] LABS: Add Urine Microscopic? YES; RBC Urine None seen /hpf (0-2)
[2023-08-14 09:43] LABS: Bacteria Urine 1+ /hpf; Squamous Epithelial Cell Urine Few /hpf (Few); WBC Urine 16-20 /hpf (0-3)
[2023-08-14 10:07] LABS: Thyroid Stimulating Hormone 0.66 uIU/mL (0.36-3.74)
[2023-08-14 10:27] LABS: Albumin Level 3.2 g/dL (3.4-5.0); Blood Urea Nitrogen 30 mg/dL (7-18); Calcium 8.3 mg/dL (8.5-10.1); Carbon Dioxide 28 mmol/L (21-32); Estimated Glomerular Filt Rate 34; Glucose 147 mg/dL (70-99); Phosphorus 3.3 mg/dL (2.6-4.7)
[2023-08-14 10:48] LABS: Anion Gap 11 mmol/L (4-12); Chloride 103 mmol/L (98-108); Osmolality Calculated 303 mOsm/kg (285-295); Potassium 3.6 mmol/L (3.5-5.1); Sodium 142 mmol/L (136-145)
[2023-08-15 22:38] LABS: Parathyroid Intact 158 pg/mL (16-77)
[2023-08-20 20:29] LABS: Immunofixation, Serum Normal pattern.
== END 2023-08-14 08:29 | disposition home or self-care (01) ==
LOC: CHSLAB 08:32
PROVIDERS: PCP Nurse Practitioner Family; Visit Provider Nurse Practitioner Family
DX: E03.9 Hypothyroidism, unspecified (principal)
CPT/HCPCS: 36415; 80069; 81001; 83970; 84443; 85025; 86334; 86335

== ENCOUNTER 2023-09-17 19:08 | Emergency (ER) | payer MEDICARE, SELFPAY ==
--- NOTE | ~2023-09-17 | XR_ITS ---
EXAMINATION: [id number] DATE: 09/17/2023 20:24 INDICATION: Accidental fall with left rib pain TECHNIQUE: A frontal inspiratory view of the chest and 3 views of the left ribs were obtained. COMPARISON: Chest radiograph dated 11/08/2021 FINDINGS: No rib fractures identified. Small lung volumes. Airspace opacities in the left lower lung zone. No p leural effusion or pneumothorax. Cardiomediastinal silhouette is within normal limits for AP techniqu e. Surgical clips in the left epigastric region. IMPRESSION: 1. No rib fractures. 2. Small lung volumes with opacities in the left lower lung zone which could represent atelectasis or pneumonia. Reviewed, dictated and finalized at location A. IMPRESSION: 1. No rib fractures. 2. Small lung volumes with opacities in the left lower lung zone which could re present atelectasis or pneumonia.
--- NOTE | ~2023-09-17 | XR_ITS ---
EXAMINATION: XR elbow LT min 3V DATE: 09/17/2023 20:23 INDICATION: Left elbow pain post fall TECHNIQUE: Anteroposterior, two oblique and lateral views of the left elbow were obtained. COMPARISON: None. FINDINGS: Alignment is normal. There is greater than expected degree of angulation at the ulnar side of the pro ximal radial head neck junction suspicious for nondisplaced impaction fracture. No other lesions susp icious for fracture identified. Joint space at the left elbow appear relatively preserved with no perri nt effusion. Soft tissues are unremarkable. IMPRESSION: 1. Possible nondisplaced impaction fracture at one side of the proximal left radial head neck junctio n. Reviewed, dictated and finalized at location A. IMPRESSION: 1. Possible nondisplaced impaction fracture at one side of the proximal left ra dial head neck junction.
[2023-09-17 19:11] VITALS: BP 138/59; PULSE 90; RESP 20; TEMP 37; O2SAT 96
[2023-09-17 19:16] VITALS: BP 119/54; O2SAT 93
--- NOTE | 2023-09-17 19:40 | PC.NURSE ---
ER provider at the bedside
--- NOTE | 2023-09-17 19:54 | ED.FALL ---
HPI - Fall General Chief Complaint: Fall Stated Complaint: rib pain Time Seen by Provider: 09/17/23 19:34 Source: patient Mode of arrival: ambulatory Limitations: no limitations History of Present Illness HPI Narrative: 78-year-old,, diabetes mellitus, hypertension, dyslipidemia, celiac axis sprue, microscopic colitis with chronic chronic gastritis metaplastic changes, adenomatous polyps in the colon, CKD presents after a fall 4 days ago with -- left elbow pain with a skin laceration .-- Left shoulder pain -- left chest wall pain which is made worse by deep breathing and coughing. No shortness of breath. MD complaint: fall Onset (ago): day(s) ( Three days ago) Fall from: standing Fall witnessed: no Place fall occurred: home Loss of consciousness: none Prolonged down time: no Symptoms prior to fall: none Context: tripped/slipped Location of injury - extremities: Left: elbow Severity: moderate Quality: sharp and stabbing Associated symptoms (after fall): chest pain Related Data Home Medications Medication Instructions Recorded Confirmed aspirin 81 mg tablet,delayed 81 mg PO DAILY 10/19/19 09/17/23 release (Adult Aspirin Regimen) cholecalciferol (vitamin D3) 25 25 mcg PO DAILY 10/19/19 09/17/23 mcg (1,000 unit) capsule allopurinol 100 mg tablet 100 mg PO DAILY 08/14/21 09/17/23 amlodipine 5 mg tablet 10 mg PO DAILY 11/21/22 09/17/23 ascorbic acid (vitamin C) 500 mg 500 mg PO DAILY 11/21/22 09/17/23 chewable tablet colchicine 0.6 mg tablet 0.6 mg PO DAILY PRN Pain, Moderate 11/21/22 09/17/23 multivitamin 1 tablet PO DAILY 11/21/22 09/17/23 verapamil 180 mg 24 hr 180 mg PO DAILY 11/21/22 09/17/23 capsule,extended release Allergies Allergy/AdvReac Type Severity Reaction Status Date / Time gluten Allergy Diarrhea Verified 06/09/23 10:20 Review of Systems Review of Systems: All systems reviewed & are unremarkable except as noted in HPI and below Constitutional: Constitutional: Reports as per HPI and Reports no additional constitutional complaints Eyes: Eyes: Reports as per HPI and Reports no additional eye complaints ENT: Reports system reviewed and no additional complaints, except as documented and Reports as per HPI Comments: very hard of hearing Cardiovascular: Cardiovascular: Reports as per HPI and Reports no additional cardiovascular complaints Respiratory: Respiratory: Reports as per HPI and Reports no additional respiratory complaints Comments: left chest wall pain made worse by coughing or deep breathing. Gastrointestinal: Gastrointestinal: Reports as per HPI Comments: Chronic diarrhea Genitourinary: Genitourinary: Reports no additional female genitourinary complaints Musculoskeletal: Musculoskeletal: Reports arthralgias Comments: left elbow pain and left shoulder pain with normal range of motion Integumentary/Breasts: Skin/Breast: Reports system reviewed and no additional complaints, except as docu Comments: multiple bruises of both upper extremities. Left elbow has a dressing which the patient does not want to remove. Neurologic: Reports system reviewed and no additional complaints, except as documented and Reports as per HPI Psychiatric: Psychiatric: Reports no additional psychiatric complaints and Reports as per HPI Endocrine: Endocrine: Reports no additional endocrine complaints and Reports as per HPI Hematologic/Lymphatic: Hematologic/Lymphatic: Reports no additional hematologic/lymphatic complaints and Reports as per HPI Allergic/Immunologic: Allergic/Immunologic: Reports no additional allergic/immunologic complaints [facility] Past Medical History Medical History Adenomatous colon polyp Celiac disease Celiac disease Chronic diarrhea Chronic gastritis Diarrhea Dysphagia Exposure to COVID-19 virus Gastritis with intestinal metaplasia of stomach HTN (hypertension) Hypercholesteremia H
--- NOTE | 2023-09-17 20:08 | PC.NURSE ---
patient transported to xray via wheel chair
[2023-09-17] MEDS: TETANUS,DIPHTHERIA,AC PERTUSSIS ADULT 0.5 ML (ADACEL) IM (20:53)
[2023-09-17] MEDS: NEOMYCIN/POLYMYXIN/BACITRACIN OINTMENT 15 GM TUBE 1 APPLIC TOPICAL (21:05)
--- NOTE | 2023-09-17 21:06 | PC.NURSE ---
triple antibiotic ointment, non stick dressing and kerlex used to cover left arm skin tear.
[2023-09-17] MEDS: ACETAMINOPHEN 325 MG TABLET 650 MG PO (21:17)
[2023-09-17 21:28] VITALS: BP 120/58; PULSE 82; RESP 18; O2SAT 97
== END 2023-09-17 21:28 | disposition home or self-care (01) ==
PROVIDERS: Emergency Provider Internal Medicine Critical Care Medicine; PCP Nurse Practitioner Family
DX: S52.125A Nondisplaced fracture of head of left radius, initial encounter for closed fracture (principal); R07.89 Other chest pain; S51.012A Laceration without foreign body of left elbow, initial encounter; I10 Essential (primary) hypertension; E78.5 Hyperlipidemia, unspecified; E03.9 Hypothyroidism, unspecified; E11.9 Type 2 diabetes mellitus without complications; Z23 Encounter for immunization; Z79.82 Long term (current) use of aspirin; W01.0XXA Fall on same level from slipping, tripping and stumbling without subsequent striking against object, initial encounter
CPT/HCPCS: 71101; 73080; 90471; 90715; 99284; A4565; A9270

== ENCOUNTER 2023-11-25 11:52 | Outpatient (CLI) | payer MEDICARE, SELFPAY ==
[2023-11-25 12:06] LABS: Hematocrit 34.6 % (35.0-42.0); Hemoglobin 11.6 g/dL (11.7-13.8); Mean Corpuscular HGB Conc 33.5 g/dL (32-36); Mean Corpuscular Hemoglobin 36.4 pg (27.0-31.0); Mean Corpuscular Volume 108.5 fL (78.0-102.0); Platelet Count Result 293 K/mm3 (150-420); Red Blood Count 3.19 M/mm3 (4.20-5.40); Red Cell Distribution Width 15.6 % (11.6-14.4); White Blood Count 9.2 K/mm3 (4.8-10.8)
[2023-11-25 12:20] LABS: Creatinine Urine 69.73 mg/dL (40-278); MALB Creatinine Ratio 18.6 mg/g (0-30); Microalbumin Urine Random < 13.0 mg/L
[2023-11-25 12:22] LABS: Hemoglobin A1C 8.7 % (<5.7)
[2023-11-25 12:32] LABS: Total Cells Counted 100
[2023-11-25 12:37] LABS: Band Neutrophils Percent 0 % (0-6); Basophils Percent Manual 0 % (0-1); Eosinophils Percent Manual 0 % (1-6); Lymphocytes Absolute Manual 2.02 K/mm3 (1.1-4.5); Lymphocytes Percent Manual 22 % (18-44); Metamyelocytes Percent 6 %; Monocytes Absolute Manual 0.64 K/mm3 (0.1-0.90); Monocytes Percent Manual 7 % (3-9); Myelocytes Percent 4 %; Neutrophils Absolute Manual 5.52 K/mm3 (1.7-7.2); Neutrophils Percent Manual 60 % (46-73)
[2023-11-25 12:38] LABS: Platelet Estimate Adequate (Adequate)
[2023-11-25 12:41] LABS: Alanine Aminotransferase 44 U/L (14-59); Albumin Level 3.4 g/dL (3.4-5.0); Alkaline Phosphatase 150 U/L (46-116); Anion Gap 10 mmol/L (4-12); Aspartate Amino Transferase 17 U/L (15-37); Bilirubin,Total 0.4 mg/dL (0.00-1.00); Blood Urea Nitrogen 54 mg/dL (7-18); Calcium 9.3 mg/dL (8.5-10.1); Carbon Dioxide 30 mmol/L (21-32); Chloride 98 mmol/L (98-108); Cholesterol 239 mg/dL (0-200); Estimated Glomerular Filt Rate 26; Glucose 158 mg/dL (70-99); HDL Direct 50 mg/dL (40-60); LDL Cholesterol Calculated 128 mg/dL (<130); Osmolality Calculated 303 mOsm/kg (285-295); Potassium 4.3 mmol/L (3.5-5.1); Sodium 138 mmol/L (136-145); Thyroid Stimulating Hormone 0.68 uIU/mL (0.36-3.74); Total Protein 6.5 g/dL (6.4-8.2); Triglycerides 307 mg/dL (0-150); Uric Acid 7.8 mg/dL (2.6-6.0)
[2023-11-28 15:00] LABS: Folic Acid > 20.0 ng/mL (8.6->20); Vitamin B12 > 2000 pg/mL (193-986)
== END 2023-11-25 11:53 | disposition home or self-care (01) ==
LOC: CHSLAB 11:54
PROVIDERS: PCP Nurse Practitioner Family; Visit Provider Nurse Practitioner Family
DX: M10.9 Gout, unspecified (principal); R79.89 Other specified abnormal findings of blood chemistry; E03.9 Hypothyroidism, unspecified
CPT/HCPCS: 36415; 80053; 80061; 82043; 82607; 82746; 83036; 84443; 84550; 85025

== ENCOUNTER 2024-01-09 12:35 | Outpatient (CLI) | payer MEDICARE, SELFPAY ==
--- NOTE | ~2024-01-09 | MM_ITS ---
EXAMINATION: MM screening roque BI w kelsea HISTORY: Screening TECHNIQUE: Craniocaudal and mediolateral oblique 3-D tomosynthesis images were obtained and synthetic 2-D images were generated. CAD analysis was submitted and interpreted. COMPARISON: Comparison to multiple prior studies sequentially, with oldest reviewed study dated 12/26. BREAST PARENCHYMAL COMPOSITION: Not dense: There are scattered areas of fibroglandular density. FINDINGS: There is no evidence of suspicious mass, calcification, or architectural distortion to sugg est malignancy in either breast. There has been no suspicious interval change. IMPRESSION: 1. No mammographic evidence of malignancy. 2. Recommend routine screening mammography in one year. BI-RADS Category 1: Negative Reviewed, dictated and finalized at location B.
== END 2024-01-09 12:36 | disposition home or self-care (01) ==
LOC: CHSIMG 12:37
PROVIDERS: PCP Nurse Practitioner Family; Visit Provider Nurse Practitioner Family
DX: Z12.31 Encounter for screening mammogram for malignant neoplasm of breast (principal)
CPT/HCPCS: 77063; 77067

== ENCOUNTER 2024-02-14 06:46 | Outpatient (CLI) | payer MEDICARE, SELFPAY ==
--- NOTE | ~2024-02-14 | MR_ITS ---
EXAMINATION: MR brain IAC wo con DATE: 02/14/2024 07:57 INDICATION: Pulsatile tinnitus. Hearing loss. TECHNIQUE: Magnetic resonance imaging (MRI) of the brain, brainstem, and internal auditory canals was performed without intravenous contrast. COMPARISON: Brain MRI 11/10/2021 FINDINGS: There is an old infarct in right temporoparietal region. There is an old infarct in left te mporal parietal region and left insula. There are small old infarcts in the cerebellum bilaterally. T here are small old infarcts in the bilateral thalami. There are scattered areas of nonspecific increa sed T2-weighted signal intensity in the cerebral white matter, which is within normal limits for the patient's age. There is no intracranial hemorrhage, acute infarction, or abnormal intracranial mass l esion. The ventricles are normal in size. The internal auditory canals, inner ears, and tympanic cavi ties are normal. There is a trace right mastoid effusion. The paranasal sinuses are clear. The orbits are normal. IMPRESSION: 1. 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 Reviewed, dictated and finalized at location A. INE ROOM OPERATOR IMPRESSION: 1. 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
== END 2024-02-14 06:47 | disposition home or self-care (01) ==
LOC: CHSIMG 06:48
PROVIDERS: PCP Family Medicine; Visit Provider Family Medicine
DX: H93.A9 Pulsatile tinnitus, unspecified ear (principal); Z86.73 Personal history of transient ischemic attack (TIA), and cerebral infarction without residual deficits
CPT/HCPCS: 70551

== ENCOUNTER 2024-02-25 10:56 | Outpatient (CLI) | payer MEDICARE, SELFPAY ==
[2024-02-25 11:18] LABS: Hematocrit 35.8 % (35.0-42.0); Hemoglobin 12.1 g/dL (11.7-13.8); Mean Corpuscular HGB Conc 33.8 g/dL (32-36); Mean Corpuscular Hemoglobin 35.3 pg (27.0-31.0); Mean Corpuscular Volume 104.4 fL (78.0-102.0); Platelet Count Result 216 K/mm3 (150-420); Red Blood Count 3.43 M/mm3 (4.20-5.40); Red Cell Distribution Width 15.4 % (11.6-14.4); White Blood Count 5.1 K/mm3 (4.8-10.8)
[2024-02-25 12:56] LABS: Cholesterol 244 mg/dL (0-200); HDL Direct 30 mg/dL (40-60); Thyroid Stimulating Hormone 0.37 uIU/mL (0.36-3.74)
[2024-02-25 13:09] LABS: Alanine Aminotransferase 28 U/L (14-59); Albumin Level 3.1 g/dL (3.4-5.0); Alkaline Phosphatase 161 U/L (46-116); Anion Gap 12 mmol/L (4-12); Aspartate Amino Transferase 23 U/L (15-37); Bilirubin,Total 0.7 mg/dL (0.00-1.00); Blood Urea Nitrogen 28 mg/dL (7-18); Calcium 9.1 mg/dL (8.5-10.1); Carbon Dioxide 29 mmol/L (21-32); Chloride 102 mmol/L (98-108); Estimated Glomerular Filt Rate 25; Ferritin 67 ng/mL (8-252); Folic Acid > 20.0 ng/mL (8.6->20); Glucose 182 mg/dL (70-99); Iron 77 ug/dL (50-170); Osmolality Calculated 306 mOsm/kg (285-295); Percent Iron Saturation 29 % (12-57); Potassium 3.2 mmol/L (3.5-5.1); Sodium 143 mmol/L (136-145); Total Protein 5.9 g/dL (6.4-8.2); Vitamin B12 > 2000 pg/mL (193-986)
[2024-02-25 13:38] LABS: LDL Cholesterol Calculated 82 mg/dL (<130); Triglycerides 662 mg/dL (0-150)
[2024-02-25 13:39] LABS: LDL Cholesterol Direct 82 mg/dL (0-130)
[2024-02-29 11:03] LABS: Vitamin D 1,25 (OH)2 Total 33 pg/mL (18-72); Vitamin D2 1,25 (OH)2 <8 pg/mL; Vitamin D3 1,25 (OH)2 33 pg/mL
[2024-03-01 11:53] LABS: Immunoglobulin A 123 mg/dL (70-320); TTG IGA AB 4.1 U/mL
== END 2024-02-25 10:57 | disposition home or self-care (01) ==
LOC: CHSLAB 10:58
PROVIDERS: PCP Nurse Practitioner Family; Visit Provider Nurse Practitioner
DX: E03.9 Hypothyroidism, unspecified (principal); E78.00 Pure hypercholesterolemia, unspecified; K90.0 Celiac disease
CPT/HCPCS: 36415; 80053; 80061; 82607; 82652; 82728; 82746; 82784; 83516; 83540; 83550; 83721; 84443; 85027

== ENCOUNTER 2024-03-15 10:30 | Outpatient (CLI) | payer MEDICARE, SELFPAY | END 2024-03-15 10:31 | disposition home or self-care (01) | LOC: CHSAUDIO 10:32 | PROVIDERS: PCP Family Medicine; Visit Provider Family Medicine | DX: H90.3 Sensorineural hearing loss, bilateral (principal) | CPT/HCPCS: 92557; 92567 ==

== ENCOUNTER 2024-04-20 12:03 | Outpatient (CLI) | payer MEDICARE, SELFPAY ==
[2024-04-20 12:21] LABS: Basophils Absolute Auto 0.05 K/mm3 (0.00-0.10); Basophils Percent Auto 0.7 % (0.0-1.0); Eosinophils Absolute Auto 0.12 K/mm3 (0.02-0.50); Eosinophils Percent Auto 1.7 % (1.0-6.0); Hematocrit 32.7 % (35.0-42.0); Hemoglobin 10.5 g/dL (11.7-13.8); Immature Granulocyte Absolute 0.06 K/mm3 (0.00-0.00); Immature Granulocyte Percent A 0.8 % (0.0-0.0); Lymphocytes Absolute Auto 1.15 K/mm3 (1.10-4.50); Lymphocytes Percent Auto 15.9 % (18.0-42.0); Mean Corpuscular HGB Conc 32.1 g/dL (32-36); Mean Corpuscular Hemoglobin 34.8 pg (27.0-31.0); Mean Corpuscular Volume 108.3 fL (78.0-102.0); Monocytes Absolute Auto 0.54 K/mm3 (0.10-0.90); Monocytes Percent Auto 7.5 % (2.0-11.0); Neutrophils Absolute Auto 5.32 K/mm3 (1.70-7.20); Neutrophils Percent Auto 73.4 % (50.0-70.0); Platelet Count Result 237 K/mm3 (150-420); Red Blood Count 3.02 M/mm3 (4.20-5.40); Red Cell Distribution Width 15.4 % (11.6-14.4); White Blood Count 7.2 K/mm3 (4.8-10.8)
[2024-04-20 12:30] LABS: Hemoglobin A1C 7.3 % (<5.7)
[2024-04-20 13:28] LABS: Thyroid Stimulating Hormone Reflex 0.23 u/IU/mL (0.36-3.74)
[2024-04-20 13:29] LABS: Free T4 Free Thyroxine Reflex 1.29 ng/dL (0.76-1.46)
[2024-04-20 13:35] LABS: Alanine Aminotransferase 18 U/L (14-59); Albumin Level 3.7 g/dL (3.4-5.0); Alkaline Phosphatase 195 U/L (46-116); Anion Gap 8 mmol/L (4-12); Aspartate Amino Transferase 14 U/L (15-37); Bilirubin,Total 0.5 mg/dL (0.00-1.00); Blood Urea Nitrogen 39 mg/dL (7-18); Calcium 9.4 mg/dL (8.5-10.1); Carbon Dioxide 26 mmol/L (21-32); Chloride 103 mmol/L (98-108); Estimated Glomerular Filt Rate 21; Glucose 129 mg/dL (70-99); Osmolality Calculated 295 mOsm/kg (285-295); Potassium 3.8 mmol/L (3.5-5.1); Sodium 137 mmol/L (136-145); Total Protein 6.3 g/dL (6.4-8.2); Uric Acid 9.2 mg/dL (2.6-6.0); Vitamin B12 1047 pg/mL (193-986)
[2024-04-20 13:37] LABS: Folic Acid > 20.0 ng/mL (8.6->20)
== END 2024-04-20 12:04 | disposition home or self-care (01) ==
LOC: CHSLAB 12:04
PROVIDERS: PCP Family Medicine; Visit Provider Family Medicine
DX: R63.4 Abnormal weight loss (principal); E11.9 Type 2 diabetes mellitus without complications; E53.8 Deficiency of other specified B group vitamins; E03.9 Hypothyroidism, unspecified; M10.9 Gout, unspecified
CPT/HCPCS: 36415; 80053; 82607; 82746; 83036; 84439; 84443; 84550; 85025

== ENCOUNTER 2024-04-21 12:45 | Outpatient (CLI) | payer MEDICARE, SELFPAY ==
[2024-04-21 13:28] LABS: Occult Blood Negative (Negative)
== END 2024-04-21 12:46 | disposition home or self-care (01) ==
PROVIDERS: PCP Family Medicine; Visit Provider Family Medicine
DX: R63.4 Abnormal weight loss (principal); R19.7 Diarrhea, unspecified
CPT/HCPCS: 82272

== ENCOUNTER 2024-05-18 10:53 | Outpatient (CLI) | payer MEDICARE, SELFPAY ==
--- OUTSIDE RECORDS SUMMARY | 2024-05-18 11:09 | XMS_ITS | Clinical Summary ---
Author Organization [facility] Address [address] [place] [address] Care Team Providers Care Insulation Hoseman Name Role Phone Mary Moss MONKEY TRAINER Primary Care Provider [phone] Medications atorvastatin 20 MG tablet 1 tablet daily. 020 Active levothyroxine 75 MCG tablet Take 75 mcg by mouth every morning. Active vitamin D3, cholecalcifero l, 1000 UNIT Tab tablet Take 1 tablet by mouth daily. Active multi vitamin/minera ls tablet Take 1 tablet by mouth daily. Active aspirin EC (ECOTRIN) 81 MG tablet Take 81 mg by mouth daily. Active omeprazole (PRILOSEC) 20 MG capsule Take 20 mg by mouth daily. 023 Active calcitriol (ROCALTROL) 0.25 MCG capsule Take 1 capsule (0.25 mcg total) by mouth see administration instructions. Take 0.25 mcg by mouth on Friday,Friday, Friday 36 capsule 1 023 Active budesonide EC (ENTOCORT EC) 3 MG capsule Take 3 mg by mouth every morning. 023 Active furosemide (LASIX) 40 MG tablet Take 40 mg by mouth daily. Active potassium chloride CR (K-TAB) 20 MEQ tablet Take 1 tablet (20 mEq total) by mouth daily. 60 tablet 1 024 Active allopurinol (ZYLOPRIM) 100 MG tabletIndicati ons:CKD (chronic kidney disease) stage 4, GFR 15-29 ml/min (CMS/HCC HHS/HCC),Persi stent proteinuria TAKE 1 TABLET(100 MG) BY MOUTH DAILY 90 tablet 1 025 Active lisinopril (PRINIVIL) 20 MG tablet TAKE 1 TABLET BY MOUTH EVERY DAY 90 tablet 1 025 Active verapamil (CALAN SR) 180 MG ER tabletIndicati ons:CKD (chronic kidney disease) stage 4, GFR 15-29 ml/min ([facility]),Persi stent proteinuria TAKE 1 TABLET(180 MG) BY MOUTH DAILY 90 tablet 1 025 Active lisinopril (PRINIVIL) 20 MG tablet Take 20 mg by mouth daily. 2024 Discontinued allopurinol (ZYLOPRIM) 100 MG tablet Take 1 tablet (100 mg total) by mouth daily. 90 tablet 1 024 2024 Discontinued verapamil (CALAN SR) 180 MG ER tablet TAKE 1 TABLET(180 MG) BY MOUTH DAILY 90 tablet 1 024 2024 Discontinued Active Problems Problem Noted Date Diagnosed Date Atrophy of left kidney 07/17/2022 Stage 3b chronic kidney disease ([facility] ) 11/11/2021 Hypertension, essential 11/11/2021 Vitamin D deficiency, unspecified 11/11/2021 Secondary hyperparathyroidis m of renal origin ([facility]) 11/11/2021 Hyperuricemia 11/11/2021 Diabetes mellitus without complication ([facility]) 11/11/2021 Non-nephrotic range proteinuria 11/11/2021 Social History Tobacco Use Types Packs/Day Years Used Date Smoking Tobacco: Never Assessed Comments Unknown Sex and Gender Information Value Date Recorded Sex Assigned at Not on file Legal Sex Female 10:48 AM CDT Gender Identity Not on file Sexual Orientation Not on file Last Filed Vital Signs Vital Sign Reading Time Taken Comments Blood Pressure 156/74 12/08/2023 2:06 PM CDT Pulse 90 12/08/2023 2:06 PM CDT Temperature 36.4 C (97.6 F) 02/03/2023 12:28 PM RECORDING STUDIO INTERN Respiratory Rate 12 08/18/2023 1:20 PM CDT Oxygen Saturation - - Inhaled Oxygen Concentration - - Weight 56.2 kg (124 lb) 12/08/2023 2:06 PM CDT Height 152.4 cm (5') 12/08/2023 2:06 PM CDT Body Mass Index 24.22 12/08/2023 2:06 PM CDT Plan of Treatment Upcoming Encounters Date Type Department Care Team (Late st Contact Info) Description 05/24/2024 1:15 PM RECORDING STUDIO INTERN Office Visit [facility] [address] [place] [address] Tony Henry MD [address] [place] [address] Health Maintenance Due Date Last Done Comments Kidney Health Evaluation 1945 Hemoglobin A1C 1945 Lipid Panel 1945 Pneumococcal Vaccine: 65+ Ye ars (1 of 2 - PCV) 06/15/1953 Diabetes: Retinopathy Eye Exam 06/15/1965 Hepatitis C 06/15/1965 DTaP, Tdap and Td Vaccines ( 1 - Tdap) 06/15/1966 Zoster Vaccines (1 of 2) 06/15/1997 Annual Medicare Wellness Visit 06/15/2012 Dexa Scan (General) 06/15/2012 RSV Immunization or 60+ Years (1 - 1-dose 75+ series) 06/15/2022 COVID-19 Vaccine ( - 2023-2 5 season) 2023 Influenza Adult (#1) 2023 Meningococcal B Vaccine Aged Out No l onger eligible based on patient's age to complete this topic Meningococcal Vaccine Aged Out No donna sincere eligible based on patient's age to complete this topic RSV Immunizations Under 20 Months Aged Out No longer eligible based on patient's age to complete this topic Insurance [employer] MEDICARE Care Teams Insulation Hoseman Relationship Specialty Start Date End Date Mary Moss, MARIA A [address] [place] [address] PCP - General NURSE PRACTITIONER 12/16/19
--- OUTSIDE RECORDS SUMMARY | 2024-05-18 11:09 | XMS_ITS | Encounter Summary ---
Author Organization [facility] Address [address] [place] [address] Care Team Providers Care Senior Oracle Database Developer Name Role Phone Mary Moss Primary Care Provider +1 [phone] Encounter Details Date Type Department Care Team (Late Contact Info) Description 07/03/2023 Abstract [facility] [address] [place] [address] Nicolette Gambino MD [address] [place], [place] [phone] Social History Tobacco Use Types Packs/Day Years Used Date Smoking Tobacco: Never Assessed Comments Unknown Sex and Gender Information Value Date Recorded Sex Assigned at Not on file Legal Sex Female 10:48 AM CDT Gender Identity Not on file Sexual Orientation Not on file documented as of this encounter Plan of Treatment Upcoming Encounters Date Type Department Care Team (Late Contact Info) Description 05/24/2024 1:15 PM EMERGENCY MANAGEMENT SYSTEM DIRECTOR Office Visit [facility] [address] [place] [address] Tony Henry MD [address] [place], [place] [id number] documented as of this encounter Visit Diagnoses Not on filedocumented in this encounter Care Teams Senior Oracle Database Developer Relationship Specialty Start Date End Date Mary Moss FNP [address] [place], [place] [phone] PCP - General NURSE PRACTITIONER 12/16/19 documented as of this encounter
--- OUTSIDE RECORDS SUMMARY | 2024-05-18 11:09 | XMS_ITS | Clinical Summary ---
Author Organization [facility] Address [address] [place] [address] Care Team Providers Care Admissions Director Name Role Phone Negra Chandler DPM Primary Care Provider + Allergies Active Allergy Reactions Criticality Noted Date Comments Gluten Diarrhea Low 11/12/2021 Medications aspirin 81 mg enteric coated tablet 1 tablet DAILY (route: oral) 11/13/2021 Active atorvastatin (LIPITOR) 20 mg tablet 1 tablet DAILY (route: oral) 11/13/2021 Active budesonide EC (ENTOCORT EC) 3 mg 24 hr capsule 1 capsule DAILY (route: oral) 11/13/2021 Active furosemide (LASIX) 20 mg tablet 1 tablet DAILY (route: oral) 11/19/2021 Active levothyroxine (SYNTHROID) 75 mcg tablet 1 tablet DAILY (route: oral) 11/13/2021 Active multivitamin with minerals (Multiple Vitamin-Mineral s) tablet Take 1 tablet by mouth daily Active omeprazole (PriLOSEC) 20 mg capsule 1 capsule DAILY (route: oral) 11/13/2021 Active cholecalciferol 25 mcg (1,000 unit) tablet 1 tablet DAILY (route: oral) 11/13/2021 Active allopurinoL (ZYLOPRIM) 100 mg tablet 07/08/2022 Active potassium chloride ER 20 mEq CR tablet Take 1 tablet (20 mEq total) by mouth daily 06/05/2022 Active Active Problems Problem Noted Date Diagnosed Date Lymphedema 08/09/2022 Assessment & Plan (08/09/2022 9:20 AM CDT): Bilateral lower extremity symptomatic lymphedema despite years of compression therapy. Discussed the importance of continuing her compression therapy. I have written a prescription for new compression stockings. We will get referral sent for lymphedema pump evaluation with [facility]. Acute kidney failure, unspecified 11/13/2021 08/07/2022 Age-related osteoporosis wit hout current pathological fracture 11/13/2021 08/07/2022 Benign neoplasm of colon, unspecified 11/13/2021 08/07/2022 Celiac disease 11/13/2021 08/07/2022 Contact with and (suspected) exposure to covid-1 9 11/13/2021 08/07/2022 Dysphagia following cerebral infarction 11/14/19 22 08/07/2022 Medical History Medical History Date Comments Stroke (HCC) 2021 Social History Tobacco Use Types Packs/Day Years Used Date Smoking Tobacco: Never Passive Smoke Exposure: Never Smokeless Tobacco: Never Tobacco Cessation:Counseling Given: No Personal Safety Answer Date Recorded Getting School Help Needed Not on file 05/31 Comments Unknown Sex and Gender Information Value Date Recorded Sex Assigned at Not on file Legal Sex Female 8:37 AM CDT Gender Identity Not on file Sexual Orientation Not on file Obstetrics History Last Filed Vital Signs Vital Sign Reading Time Taken Comments Blood Pressure - - Pulse - - Temperature - - Respiratory Rate - - Oxygen Saturation - - Inhaled Oxygen Concentration - - Weight 54.4 kg (120 lb) 08/07/2022 1:35 PM CDT Height 152.4 cm (5') 08/07/2022 1:35 PM CDT Body Mass Index 23.44 08/07/2022 1:35 PM CDT Plan of Treatment Health Maintenance Due Date Last Done Comments Depression Screening 1945 Fall Risk Assessment 1945 Hepatitis C Screening 1945 Osteoporosis Screening-Bone Density Scan 1945 DTaP/Tdap/Td Vaccine (1 - Tdap) 06/15/1958 Hepatitis B Screening 06/15/1965 Zoster Vaccine (1 of 2) 06/15/1997 Pneumococcal vaccine 65+ (1 of 1 - PCV) 06/15/2012 Well Visit 65+ 06/15/2012 Covid-19 Vaccine (3 - season) 11/30/202301/2021, 08/18/2020 Influenza Vaccine (#1) 2023 2, 01/24/2021, 01/07/2017 Insurance MEDICARE [employer] SENIOR SUPPLEMENT Care Teams Admissions Director Relationship Specialty Start Date End Date Negra Chandler DPM PCP - General Orthopedic Surgery 07/31/22
--- OUTSIDE RECORDS SUMMARY | 2024-05-18 11:09 | XMS_ITS | Encounter Summary ---
Author Organization [facility] Address [address] [place] [address] Care Team Providers Care Loader Semiconductor Dies Name Role Phone Mary Moss Primary Care Provider [phone] [phone] Encounter Details Date Type Department Care Team (Late st Contact Info) Description 12/27/2020 Abstract [facility] [address] [place] [address] Social History Tobacco Use Types Packs/Day Years [...] st Contact Info) Description 05/24/2024 1:15 PM AUTOMATIC GLOVE FORMER Office Visit [facility] [address] [place] [address] [place] [address] [place] [address] documented as of this encounter Visit Diagnoses Not on filedocumented in this encounter Care Teams Loader Semiconductor Dies Relationship Specialty Start Date End Date Mary Moss FNP [address] [place] [address] PCP - General NURSE PRACTITIONER 12/16/19 documented as of this encounter
--- OUTSIDE RECORDS SUMMARY | 2024-05-18 11:09 | XMS_ITS | Referral Summary ---
Author Organization [facility] Address [address] [place] [address] Care Team Providers Care Cooker Mechanic Name Role Phone Negra Chandler DPRussell Primary Care Provider + Allergies Active Allergy [...] failure, unspecified 11/13/2021 08/07/2022 Age-related osteoporosis wit alyson current pathological fracture 11/13/2021 08/07/2022 Benign neoplasm of colon, unspecified 11/13/2021 08/07/2022 Celiac disease 11/13/2021 08/07/2022 Contact with and (suspected) exposure to covid-1 9 11/13/2021 08/07/2022 Dysphagia following cerebral infarction 11/14/19 22 08/07/2022 Social History Tobacco Use Types Packs/Day Years [...] 08/07/2022 1:35 PM CDT Plan of Treatment Not on file Insurance MEDICARE AETNA SENIOR SUPPLEMENT Care Teams Cooker Mechanic Relationship Specialty Start Date End Date Negra Chandler DPM PCP - General Orthopedic Surgery 07/31/22
--- OUTSIDE RECORDS SUMMARY | 2024-05-18 11:09 | XMS_ITS | Encounter Summary ---
Author Organization [facility] Address [address] [place] [address] Care Team Providers Care Vacuum Applicator Operator Name Role Phone Mary Moss Primary Care Provider +1 [phone] Encounter Details Date Type Department Care Team (Late Contact Info) Description 07/03/2023 Abstract [facility] [address] [place] [address] Nicolette Gambino MD [address] [place], [place] [phone] Social History Tobacco Use Types Packs/Day Years [...] (Late Contact Info) Description 05/24/2024 1:15 PM HOMOEOPATH Office Visit [facility] [address] [place] [address] Tony Henry MD [address] [place], [place] [phone] documented as of this encounter Visit Diagnoses Not on filedocumented in this encounter Care Teams Vacuum Applicator Operator Relationship Specialty Start Date End Date Mary Moss FNP [address] [place], [place] [phone] PCP - General NURSE PRACTITIONER 12/16/19 documented as of this encounter
[2024-05-18 11:18] LABS: Hematocrit 33.6 % (35.0-42.0); Hemoglobin 10.7 g/dL (11.7-13.8); Mean Corpuscular HGB Conc 31.8 g/dL (32-36); Mean Corpuscular Hemoglobin 34.5 pg (27.0-31.0); Mean Corpuscular Volume 108.4 fL (78.0-102.0); Mean Platelet Volume 9.1 fl (9.2-11.8); Platelet Count Result 257 K/mm3 (150-420); Red Cell Distribution Width 15.4 % (11.6-14.4); White Blood Count 7.5 K/mm3 (4.8-10.8)
[2024-05-18 11:26] LABS: Creatinine Urine 145.59 mg/dL (40-278); Ur Ttl Prot Creatinine Ratio 0.15 mg/mg (0-0.20)
[2024-05-18 11:47] LABS: Albumin Level 3.7 g/dL (3.4-5.0); Anion Gap 12 mmol/L (4-12); Blood Urea Nitrogen 42 mg/dL (7-18); Calcium 9.2 mg/dL (8.5-10.1); Carbon Dioxide 28 mmol/L (21-32); Chloride 104 mmol/L (98-108); Estimated Glomerular Filt Rate 20; Glucose 135 mg/dL (70-99); Osmolality Calculated 310 mOsm/kg (285-295); Phosphorus 5.4 mg/dL (2.6-4.7); Potassium 4.2 mmol/L (3.5-5.1); Sodium 144 mmol/L (136-145)
== END 2024-05-18 10:54 | disposition home or self-care (01) ==
PROVIDERS: PCP Nurse Practitioner Family
DX: N18.4 Chronic kidney disease, stage 4 (severe) (principal)
CPT/HCPCS: 36415; 80069; 82570; 84156; 85027

== ENCOUNTER 2024-09-13 09:43 | Outpatient (CLI) | payer MEDICARE, SELFPAY ==
[2024-09-13 09:59] LABS: Eosinophils Absolute Auto 0.12 K/mm3 (0.02-0.50); Eosinophils Percent Auto 1.2 % (1.0-6.0); Hemoglobin 11.7 g/dL (11.7-13.8); Immature Granulocyte Absolute 0.16 K/mm3 (0.00-0.00); Immature Granulocyte Percent A 1.6 % (0.0-0.0); Lymphocytes Absolute Auto 2.06 K/mm3 (1.10-4.50); Lymphocytes Percent Auto 20.2 % (18.0-42.0); Mean Corpuscular HGB Conc 31.6 g/dL (32-36); Mean Corpuscular Hemoglobin 34.6 pg (27.0-31.0); Mean Corpuscular Volume 109.5 fL (78.0-102.0); Mean Platelet Volume 9.8 fl (9.2-11.8); Monocytes Absolute Auto 0.68 K/mm3 (0.10-0.90); Monocytes Percent Auto 6.7 % (2.0-11.0); Neutrophils Absolute Auto 7.07 K/mm3 (1.70-7.20); Neutrophils Percent Auto 69.3 % (50.0-70.0); Platelet Count Result 267 K/mm3 (150-420); Red Blood Count 3.38 M/mm3 (4.20-5.40); Red Cell Distribution Width 15.9 % (11.6-14.4); White Blood Count 10.2 K/mm3 (4.8-10.8)
--- OUTSIDE RECORDS SUMMARY | 2024-09-13 10:23 | XMS_ITS | Referral Summary ---
Author Organization [facility] Address [address] [place] [address] Care Team Providers Care Jockey'S Agent Name Role Phone Negra Chandler DPRussell Primary [...] Insurance MEDICARE AETNA SENIOR SUPPLEMENT Care Teams Jockey'S Agent Relationship Specialty Start Date End Date Negra Chandler DPM PCP - General Orthopedic Surgery 07/31/22
--- OUTSIDE RECORDS SUMMARY | 2024-09-13 10:23 | XMS_ITS | Clinical Summary ---
Author Organization [facility] Address [address] [place] [address] Care Team Providers Care Painter Supervisor Name Role Phone Negra Chandler DPM Primary [...] - Tdap) 06/15/1956 Hepatitis B Screening 06/15/1965 Pneumococcal vaccine 65+ (1 of 1 - PCV) 06/15/1997 Zoster Vaccine (1 of 2) 06/15/1997 Well Visit 65+ 06/15/2012 Covid-19 Vaccine (3 - season) 11/30/202301/2021, 08/18/2020 Influenza Vaccine (Season Ended) 2024 01/03/2022, 01/24/2021, 01/07/2017 Insurance MEDICARE A[employer] SENIOR SUPPLEMENT Member Subscriber Plan / Payer (Ef fective 2022-Present) Name:ErastoPradeep camposine Relation to Subscriber:Self Name:ErastoBrenda campos Payer ID:[id number] Group ID:Not on file Type:[employer] Address: [address] [address] [place] [address] Care Teams Painter Supervisor Relationship Specialty Start Date End Date Negra Chandler DPM PCP - General Orthopedic Surgery 07/31/22
[2024-09-13 10:45] LABS: Alanine Aminotransferase 64 U/L (6-35); Albumin Level 3.9 g/dL (3.5-5.1); Alkaline Phosphatase 210 U/L (38-126); Anion Gap 4 mmol/L (4-12); Aspartate Amino Transferase 40 U/L (14-36); Bilirubin,Total 0.6 mg/dL (0.2-1.3); Blood Urea Nitrogen 39 mg/dL (7-17); Calcium 8.9 mg/dL (8.4-10.2); Carbon Dioxide 31 mmol/L (22-30); Chloride 104 mmol/L (98-107); Estimated Glomerular Filt Rate 36; Glucose 97 mg/dL (65-110); Osmolality Calculated 297 mOsm/kg (285-295); Potassium 4.1 mmol/L (3.4-5.0); Sodium 139 mmol/L (137-145); Total Protein 6.1 g/dL (6.3-8.2); Uric Acid 7.1 mg/dL (2.5-7.5)
[2024-09-14 03:25] LABS: Hemoglobin A1C 6.2 % (<5.7)
== END 2024-09-13 09:44 | disposition home or self-care (01) ==
LOC: CHSLAB 09:46
PROVIDERS: PCP Nurse Practitioner Family
DX: N18.4 Chronic kidney disease, stage 4 (severe) (principal); E11.9 Type 2 diabetes mellitus without complications; E03.9 Hypothyroidism, unspecified; D64.9 Anemia, unspecified
CPT/HCPCS: 36415; 80053; 83036; 84443; 84550; 85025

== ENCOUNTER 2024-11-30 11:02 | Outpatient (CLI) | payer MEDICARE, SELFPAY ==
--- NOTE | ~2024-11-30 | DEXA_ITS ---
Bone Density Report Name: TAB RIBEIRO Age: 79 Sex: Female Ethnicity: White Date of : 1945 Indication: postmenopausal osteoporosis; height loss; Referring Provider: RADHA MACARIO Study: Bone densitometry was performed. Exam Date: November 30, 2024 Accession number: [id number] Bone Density: Region BMD T-score Z-score Classification AP Spine(L1-L4) 0.656 -3.6 -1.0 Osteoporosis Femoral Neck (Left) 0.332 -4.7 -2.5 Osteoporosis Total Hip (Left) 0.562 -3.1 -1.2 Osteoporosis Femoral Neck (Right) 0.391 -4.1 -1.9 Osteoporosis Total Hip (Right) 0.530 -3.4 -1.5 Osteoporosis Femoral Neck Mean 0.361 -4.4 -2.2 Osteoporosis Total Hip Mean 0.546 -3.2 -1.3 Osteoporosis World Health Organization criteria for BMD impression classify patients as: Normal (T-score at or above -1.0), Osteopenia (T-score between -1.0 and -2.5), or Osteoporosis (T-score at or below -2.5). 10-year Fracture Risk: FRAX not reported because: Some T-score for Spine Total or Hip Total or Femoral Neck at or below -2.5 Previous Exams: Region Exam Age BMD T-score BMD Change BMD Change Date g/cm2 vs Baseline vs Previous Total Hip(Left) 11/30/2024 79 0.562 -3.1 -0.029 (-5.0%) -0.029 (-5.0%) 11/26/2022 77 0.591 -2.9 Total Hip(Right) 11/30/2024 79 0.530 -3.4 -0.097 (-15.4% -0.097 (-15.4% 11/26/2022 77 0.627 -2.6 *Denotes significance at 95% confidence level, LSC for Total Hip = 0.027 g/cm2 Clinical Information Provided by Patient: Has used the following medications: Vitamin D Patient maximum height was 60 Menopause Age: 52 No regular weight bearing exercise Does not regularly consume dairy products Onset of menses at age 14 Number of children 0 Impression: The patient has osteoporosis, based on the Left Femoral Neck T-score. The BMD for the Total Hip(Left) decreased, changing by -5.0% since the last DXA exam. The BMD for the Total Hip(Right) decreased, changing by -15.4% since the last DXA exam. Discussion: HIGH RISK OF FRACTURE. BONE DENSITY IS UNDESIRABLY LOW AT ONE OR MORE SKELETAL SITES, CONSISTENT WITH OSTEOPOROSIS. ALSO, BONE DENSITY IS LOWER THAN EXPECTED FOR AGE AND SEX AT ONE OR MORE SKELETAL SITES; RECOMMEND A DILIGENT SEARCH FOR SECONDARY CAUSES OF BONE LOSS. This patient's lowest T-score meets the World Health Organization's (WHO) criteria for osteoporosis at one or more sites (T-score -2.5 or below). In untreated patients, the risk of osteoporotic fracture increases approximately two-fold for each 1.0 SD decrease in T-score. Low bone density is not the only risk factor for fracture; also consider factors such as patient's age, frailty or poor health, risk of falling, risk of injury, previous osteoporotic fracture, family history of osteoporosis, cigarette smoking, low body weight, etc. Not everyone with low bone mineral density has osteoporosis; osteomalacia and other metabolic bone disorders should also be considered. Patients who have osteoporosis should be evaluated for specific diseases and conditions (secondary causes) that may cause or contribute to bone loss. The [place] Association of Clinical Endocrinologists (AACE) and National Osteoporosis Foundation (NOF) recommend pharmacologic intervention for all postmenopausal women whose T-score is in this range. Also, this patient's bone mineral density is below the range considered normal for healthy age-, sex-, and race-matched controls at least one site (Z-score -2.0 or below). This warrants careful evaluation for diseases and conditions that may contribute to accelerated bone loss. The patient should follow a healthful lifestyle (good nutrition with adequate calcium and vitamin D, and appropriate weight-bearing exercise). Follow-Up: Consider a repeat BMD and Vertebral Fracture Assessment (VFA) exam in 2 years or sooner if medically necessary, to reassess this patient's status. Reported by: SHANNON on 12/10/2024 7:58:00 AM. Reviewed, dictated and finalized at location .
[2024-11-30 11:25] LABS: Hematocrit 37.2 % (35.0-42.0); Hemoglobin 12.2 g/dL (11.7-13.8); Mean Corpuscular HGB Conc 32.8 g/dL (32-36); Mean Corpuscular Hemoglobin 34.7 pg (27.0-31.0); Mean Corpuscular Volume 105.7 fL (78.0-102.0); Platelet Count Result 230 K/mm3 (150-420); Red Blood Count 3.52 M/mm3 (4.20-5.40); White Blood Count 7.6 K/mm3 (4.8-10.8)
--- OUTSIDE RECORDS SUMMARY | 2024-11-30 11:38 | XMS_ITS | Encounter Summary ---
Author Organization [facility] Address [address] [place] [address] Care Team Providers Care Record Label Intern Name Role Phone Mary Moss Primary Care Provider +1 [phone] Encounter Details Date Type Department Care Team (Late st Contact Info) Description 07/03/2023 Abstract [facility] [address] [place] [address] [place] [address] [place] [address] Social History Tobacco Use Types Packs/Day Years Used Date Smoking Tobacco: Never Assessed Comments Unknown Sex and Gender Information Value Date Recorded Sex Assigned at Unknown 05/26/2024 11:38 AM PLUMBING HARDWARE ASSEMBLER Legal Sex Female 10:48 AM CDT Gender Identity Not on file Sexual Orientation Not on file documented as of this encounter Plan of Treatment Not on file documented as of this encounter Visit Diagnoses Not on filedocumented in this encounter Care Teams Record Label Intern Relationship Specialty Start Date End Date Mary Moss FNP [address] [place] [address] PCP - General NURSE PRACTITIONER 12/16/19 documented as of this encounter
--- OUTSIDE RECORDS SUMMARY | 2024-11-30 11:38 | XMS_ITS | Encounter Summary ---
Author Organization [facility] Address [address] [place] [address] Care Team Providers Care Sales Force Developer Name Role Phone Mary Moss Primary Care Provider [phone] [phone] Encounter Details Date Type Department Care Team (Late st Contact Info) Description 07/03/2023 Abstract [facility] [address] [place] [phone] [place] [address] [place] [address] Social History Tobacco Use Types Packs/Day Years Used Date Smoking Tobacco: Never Assessed Comments Unknown Sex and Gender Information Value Date Recorded Sex Assigned at Unknown 05/26/2024 11:38 AM OAK TANNER Legal Sex Female 10:48 AM CDT Gender Identity Not on file Sexual Orientation Not on file documented as of this encounter Plan of Treatment Not on file documented as of this encounter Visit Diagnoses Not on filedocumented in this encounter Care Teams Sales Force Developer Relationship Specialty Start Date End Date Mary Moss FNP [address] [place] [address] PCP - General NURSE PRACTITIONER 12/16/19 documented as of this encounter
--- OUTSIDE RECORDS SUMMARY | 2024-11-30 11:38 | XMS_ITS | Clinical Summary ---
Author Organization [facility] Address [address] [place] [address] Care Team Providers Care Campus Security Director Name Role Phone Negra Chandler DPRussell Primary [...] - season) 11/30/202301/2021, 08/18/2020 Influenza Vaccine (#1) 2024 2, 01/24/2021, 01/07/2017 Insurance MEDICARE AETNA SENIOR SUPPLEMENT Care Teams Campus Security Director Relationship Specialty Start Date End Date Negra Chandler DPM PCP - General Orthopedic Surgery 07/31/22
--- OUTSIDE RECORDS SUMMARY | 2024-11-30 11:38 | XMS_ITS | Encounter Summary ---
Author Organization [facility] Address [address] [place] [address] Care Team Providers Care Tip Bander Name Role Phone Mary Moss Primary Care Provider +1 [phone] Encounter Details Date Type Department Care Team (Late st Contact Info) Description 12/27/2020 Abstract [facility] [address] [place] [address] Social History Tobacco Use Types Packs/Day Years Used Date Smoking Tobacco: Never Assessed Comments Unknown Sex and Gender Information Value Date Recorded Sex Assigned at Unknown 05/26/2024 11:38 AM LEATHER CURRIER Legal Sex Female 10:48 AM CDT Gender Identity Not on file Sexual Orientation Not on file documented as of this encounter Plan of Treatment Not on file documented as of this encounter Visit Diagnoses Not on filedocumented in this encounter Care Teams Tip Bander Relationship Specialty Start Date End Date Mary Moss FNP [address] [place] [address] PCP - General NURSE PRACTITIONER 12/16/19 documented as of this encounter
--- OUTSIDE RECORDS SUMMARY | 2024-11-30 11:38 | XMS_ITS | Clinical Summary ---
Author Organization [facility] Address [address] [place] [address] Care Team Providers Care Fractionation Plant Supervisor Name Role Phone Mary Moss STRATEGIC PARTNER DEVELOPMENT MANAGER Primary Care Provider [phone] [phone] Medications atorvastatin 20 MG tablet 1 tablet daily. 02/14/20 20 Active levothyroxine 75 MCG tablet Take 75 mcg by mouth every morning. Active vitamin D3, cholecalciferol , 1000 UNIT Tab tablet Take 1 tablet by mouth daily. Active multi vitamin/mineral s tablet Take 1 tablet by mouth daily. Active aspirin EC (ECOTRIN) 81 MG tablet Take 81 mg by mouth daily. Active omeprazole (PRILOSEC) 20 MG capsule Take 20 mg by mouth daily. 06/21/19 23 Active calcitriol (ROCALTROL) 0.25 MCG capsule Take 1 capsule (0.25 mcg total) by mouth see administration instructions. Take 0.25 mcg by mouth on Friday,Friday, 36 capsule 1 07/20/19 23 Active budesonide EC (ENTOCORT EC) 3 MG capsule Take 3 mg by mouth every morning. 09/11/19 23 Active furosemide (LASIX) 40 MG tablet Take 40 mg by mouth daily. Active potassium chloride CR (K-TAB) 20 MEQ tablet Take 1 tablet (20 mEq total) by mouth daily. 60 tablet 1 12/17/19 24 Active allopurinol (ZYLOPRIM) 100 MG tabletIndicatio ns:CKD (chronic kidney disease) stage 4, GFR 15-29 ml/min (CMS/HCC HHS/HCC),Persis tent proteinuria TAKE 1 TABLET(100 MG) BY MOUTH DAILY 90 tablet 1 04/19/19 25 Active verapamil (CALAN SR) 180 MG ER tabletIndicatio ns:CKD (chronic kidney disease) stage 4, GFR 15-29 ml/min ([facility]),Manuel tent proteinuria TAKE 1 TABLET(180 MG) BY MOUTH DAILY 90 tablet 1 05/10/19 25 Active Active Problems Problem Noted Date Diagnosed Date Atrophy of left kidney 07/17/2022 Stage 3b chronic kidney disease 11/11/2021 Hypertension, essential 11/11/2021 Vitamin D deficiency, unspecified 11/11/2021 Secondary hyperparathyroidism of renal origin (H /[facility]) 11/11/2021 Hyperuricemia 11/11/2021 Diabetes mellitus without complication ([facility]) 11/11/2021 Non-nephrotic range proteinuria 11/11/2021 Social History Tobacco Use Types Packs/Day Years Used Date Smoking Tobacco: Never Assessed Comments Unknown Sex and Gender Information Value Date Recorded Sex Assigned at Unknown 05/26/2024 11:38 AM SUPERVISOR PUMPING STATION Legal Sex Female 10:48 AM CDT Gender Identity Not on file Sexual Orientation Not on file Last Filed Vital Signs Vital Sign Reading Time Taken Comments Blood Pressure 99/62 05/24/2024 12:58 PM SUPERVISOR PUMPING STATION Pulse 76 05/24/2024 12:58 PM SUPERVISOR PUMPING STATION Temperature 36.4 C (97.6 F) 02/03/2023 12:28 PM SUPERVISOR PUMPING STATION Respiratory Rate 12 08/18/2023 1:20 PM CDT Oxygen Saturation - - Inhaled Oxygen Concentration - - Weight 49.9 kg (110 lb) 05/24/2024 12:58 PM SUPERVISOR PUMPING STATION Height 152.4 cm (5') 05/24/2024 12:58 PM SUPERVISOR PUMPING STATION Body Mass Index 21.48 05/24/2024 12:58 PM SUPERVISOR PUMPING STATION Plan of Treatment Health Maintenance Due Date Last Done Comments Kidney Health Evaluation 1945 Hemoglobin A1C 1945 Lipid Panel 1945 Diabetes: Retinopathy Eye Exam 06/15/1965 Hepatitis C 06/15/1965 DTaP, Tdap and Td Vaccines ( 1 - Tdap) 06/15/1966 Pneumococcal Vaccine: 50+ Ye ars (1 of 2 - PCV) 06/15/1966 Zoster Vaccines (1 of 2) 06/15/1997 Annual Medicare Wellness Visit 06/15/2012 RSV Immunization or 60+ Years (1 - 1-dose 75+ series) 06/15/2022 COVID-19 Vaccine ( - 2023-2 5 season) 2023 Meningococcal B Vaccine Aged Out No l onger eligible based on patient's age to complete this topic Meningococcal Vaccine Aged Out No donna sincere eligible based on patient's age to complete this topic RSV Immunizations Under 20 Months Aged Out No longer eligible based on patient's age to complete this topic Insurance AETNA MEDICARE Care Teams Fractionation Plant Supervisor Relationship Specialty Start Date End Date Mary Moss, MARIA A [address] [place] [address] PCP - General NURSE PRACTITIONER 12/16/19
[2024-11-30 12:23] LABS: Alanine Aminotransferase 30 U/L (6-35); Albumin Level 4.0 g/dL (3.5-5.1); Anion Gap 6 mmol/L (4-12); Aspartate Amino Transferase 25 U/L (14-36); Blood Urea Nitrogen 37 mg/dL (7-17); Calcium 9.2 mg/dL (8.4-10.2); Carbon Dioxide 33 mmol/L (22-30); Chloride 104 mmol/L (98-107); Cholesterol 148 mg/dL (0-200); Estimated Glomerular Filt Rate 35; Glucose 112 mg/dL (65-110); HDL Direct 48 mg/dL; Osmolality Calculated 305 mOsm/kg (285-295); Potassium 4.2 mmol/L (3.4-5.0); Sodium 143 mmol/L (137-145); Total Protein 6.0 g/dL (6.3-8.2); Triglycerides 142 mg/dL (<150)
[2024-11-30 12:25] LABS: Alkaline Phosphatase 109 U/L (38-126); Bilirubin,Total 0.7 mg/dL (0.2-1.3)
[2024-11-30 14:17] LABS: Hemoglobin A1C 7.1 % (<5.7)
== END 2024-11-30 11:03 | disposition home or self-care (01) ==
LOC: CHSIMG 11:05
PROVIDERS: PCP Nurse Practitioner Family; Visit Provider Nurse Practitioner Family
DX: R74.8 Abnormal levels of other serum enzymes (principal); E78.00 Pure hypercholesterolemia, unspecified; M81.0 Age-related osteoporosis without current pathological fracture; E11.9 Type 2 diabetes mellitus without complications; Z78.0 Asymptomatic menopausal state; N18.4 Chronic kidney disease, stage 4 (severe)
CPT/HCPCS: 36415; 77080; 80061; 80069; 80076; 83036; 83970; 85027